=== PATIENT | male | born 1955 | race Caucasian/White ===

== ENCOUNTER 2022-08-19 15:04 | Inpatient (IN) | payer MEDICARE, OTHER ==
[~2022-08-19] VITALS: Ht 180.3 cm; Wt 74.0 kg
[2022-08-19] MEDS ORDERED: LACTULOSE SYRUP 10GM/15ML (ENULOSE) 30ML UDC PO PRN (15:15)
[2022-08-19] MEDS ORDERED: diphenhydrAMINE 25 MG TAB (BENADRYL) PO PRN (15:15)
[2022-08-19] MEDS ORDERED: BISACODYL 10 MG SUPP (DULCOLAX) PR PRN (15:15)
[2022-08-19] MEDS ORDERED: ONDANSETRON 4 MG (ZOFRAN) ORAL DISSOLVE TAB PO PRN (15:15)
[2022-08-19] MEDS ORDERED: guaiFENesin/CODEINE (ROBITUSSIN AC) 10ML UDC PO PRN (15:15)
[2022-08-19] MEDS ORDERED: DOCUSATE SODIUM 100 MG (COLACE) CAP PO PRN (15:15)
[2022-08-19] MEDS ORDERED: LOPERAMIDE 2 MG (IMODIUM) TABLET PO PRN (15:15)
[2022-08-19] MEDS ORDERED: ACETAMINOPHEN 325 MG TABLET PO PRN (15:15)
[2022-08-19] MEDS ORDERED: ALPRAZolam 0.25 MG (XANAX) TAB PO PRN (15:15)
[2022-08-19] MEDS ORDERED: CALCIUM CARBONATE 500 MG (TUMS) TAB.CHEW PO PRN (15:15)
[2022-08-19] MEDS ORDERED: FLEET ENEMA ADULT 1 EA BTL PR PRN (15:15)
[2022-08-19] MEDS ORDERED: PRD10T PO (16:18)
[2022-08-19] MEDS ORDERED: DICL100G13 TP (16:18)
[2022-08-19] MEDS ORDERED: MULT-1136 PO (16:18)
[2022-08-19] MEDS ORDERED: PRAV20TA3 PO (16:18)
[2022-08-19] MEDS ORDERED: LATA7.5D OU (16:18)
[2022-08-19] MEDS ORDERED: LISI10TA25 PO (16:18)
[2022-08-19] MEDS ORDERED: HYDR-3820 PO (16:18)
[2022-08-19] MEDS ORDERED: NALO4SPR NS (16:18)
[2022-08-19 16:49] VITALS: BP 116/83
[2022-08-19] MEDS ORDERED: DICLOFENAC 1% GEL 100 GM (VOLTAREN) TUBE TP PRN (17:15)
--- NOTE | 2022-08-19 17:16 | PM&R Post Admission Assessment ---
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 He lives in [place]. Apparently he sustained a fall 4 weeks ago at home but only mild pain occurred but gradually worsened so he went to ER twice and xray did not show fracture but it worsened so much he went to PCP and xray at his office revealed the fracture so he was sent to ER and he was admitted and underwent repair on 08/17/22 uncomplicated. He is constipated. PLOF independent. 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 Tinnitus, right H93.11 CHG ANES COLONOSCOPY,BIOPSY 2011 HX APPENDECTOMY HX CATARACT REMOVAL 1999 HX COLONOSCOPY 12/01/2018 NM COLSC FLX W/RMVL OF TUMOR POLYP LESION SNARE TQ N/A 12/01/2018 COLONOSCOPY WITH POLYPECTOMY performed by Brenton Mata MD (John) at [facility] NM EGD TRANSORAL CONTROL BLEEDING ANY METHOD N/A 12/01/2018 ENDOSCOPY CONTROL OF BLEEDING performed by Brenton Mata MD (John) at [facility] Past Mipignq-Vvgede-Uviwkj Hx Past Med/Social Hx: Reviewed Nursing Past Med/Soc Hx, Reviewed and Corrections made Patient Social History Marrital Status: Employed/Student: retired Alcohol Use: Occasionally Uses Smoking Status: Never a Smoker Past Medical History Surgeries: Orthopedic Cardiac: High Cholesterol, Hypertension Gastrointestinal: Diverticulosis PM&R Allergy/Meds/Data Review Allergies Coded Allergies: No Known Drug Allergies (Unverified , 08/20/22) Home Medications Scheduled Latanoprost/Pf (Latanoprost 0.005% Eye Drop), 1 DROP OU HS, (Reported) Lisinopril (Lisinopril), 10 MG PO DAILY, (Reported) Multivitamin (Multivitamin), 1 EACH PO DAILY, (Reported) Pravastatin Sodium (Pravastatin Sodium), 20 MG PO HS, (Reported) Prednisone (Prednisone), 10 MG PO DAILY, (Reported) Scheduled PRN Diclofenac Sodium (Diclofenac Sodium), 2 GM TP Q6H PRN for PAIN-BREAKTHROUGH, (Reported) Hydrocodone/Acetaminophen (Hydrocodone-Acetamin 10-325 mg), 1 EACH PO Q4H PRN for PAIN-MODERATE (5-7), (Reported) Naloxone HCl (Narcan), 1 SPR NS UD PRN for OPIATE OD, (Reported) Current Medications Current Medications Reviewed Review of Systems Constitutional: see HPI, malaise, weakness EENTM: no symptoms reported Respiratory: no symptoms reported Gastrointestinal: no symptoms reported Genitourinary: no symptoms reported Musculoskeletal: back pain, joint pain Skin: no symptoms reported Psychiatric/Neurological: No Symptoms Reported All Other Systems Reviewed Negative Unless Noted: Yes Physical Exam Physical Exam Vital Signs Vital Signs - First Documented 08/19/22 16:49 Temp 37.0 Pulse 97 Resp 16 B/P (MAP) 116/83 (94) Pulse Ox 99 O2 Delivery Room Air Capillary Refill : Height, Weight, BMI Height: '" Weight: lbs. oz. kg; 22.51 BMI Method: General Appearance: No Apparent Distress, WD/WN, Thin Eyes: Bilateral Eye Normal Inspection, Bilateral Eye PERRL HEENT: PERRL/EOMI, Normal ENT Inspection, Pharynx Normal Neck: Full Range of Motion, Normal Inspection, Non Tender, Supple, Carotid Bruit Respiratory: Chest Non Tender, Lungs Clear, Normal Breath Sounds, No Accessory Muscle Use, No Respiratory Distress Cardiovascular: Regular Rate, Rhythm, No Edema, No Gallop, No JVD, No Murmur, Normal Peripheral Pulses Gastrointestinal: Normal Bowel Sounds, No Organomegaly, No Pulsatile Mass, Non Tender, Soft Back: Normal Inspection, No CVA Tenderness, No Vertebral Tenderness Extremity: Normal Capillary Refill, Normal Inspection, Normal Range of Motion (except right leg), Non Tender, No Calf Tenderness, No Pedal Edema Neurologic/Psychiatric: Alert, Oriented x3, Normal Mood/Affect, counter pocket trimmer II-XII Norm as Tested, Abnormal Gait, Motor Weakness (right leg) Skin: Normal Color, Warm/Dry Lymphatic: No Adenopathy PM&R Medical Assessment & Plan REHAB/MEDICAL ASSESSMENT AND PLAN: REHAB IMPAIRMENT GROUP: Right hip fx ETIOLOGIC DIAGNOSIS: Right hip fx The comorbidities that impact the patients function and/or functional outcome by: right hip fracture, HTN, thin habitus, hip pain REHAB PLAN: The patient is being admitted to our comprehensive inpatient rehabilitation facility and can tolerate the intensity of service consisting of at least: 180 minutes of therapy a day, 5 out of 7 days a week Rehab treatment will consist of: PT OT will focus on regaining function with use of AD and increase independent ADLs in order to return to independent living The patient/family has a good understanding of our discharge process and will benefit from an interdisciplinary inpatient rehabilitation program. The patient has potential to make improvement and is in need of at least two of the following multidisciplinary therapies including but not limited to physical, occupational, speech, and prosthetics and orthotics. Additionally the patient will need services from respiratory, nutritional services, wound care, psychology, etc. (Customize this to each patient). Given the patients complex condition and risk of further medical complications, rehabilitation services cannot be safely or effectively provided at a lower level of care such as a care home facility. BARRIERS TO DISCHARGE: Right hip pain ESTIMATED LOS: 7 days DISPOSITION: Home RELEVANT CHANGES SINCE PREADMISSION SCREENING: I have compared the patients medical and functional status at the time of the preadmission screening and there are: no changes PROGNOSIS: Good REHABILITATION GOALS: 1. PT OT will focus on regaining function with use of AD and increase independent ADLs in order to return to independent living All the above goals were reviewed with the patient and he/she is in agreement. By signing this document, I acknowledge that I have personally performed a full physical examination on this patient within 24 hours of admission to this inpatient rehabilitation facility and have determined the patient to be able to tolerate the above course of treatment at an intensive level for a reasonable period of time. I will be completing a detailed individualized Plan of Care for this patient by day #4 of the patients stay based upon the Preadmission Screen, the Post-Admission Evaluation, and the therapy evaluations. Admission Dx/Comorbidities: (1) Hip fracture ICD Codes: S72.009A - Fracture of unspecified part of neck of unspecified femur, initial encounter for closed fracture (2) Acoustic neuroma ICD Codes: D33.3 - Benign neoplasm of cranial nerves (3) Hypertension ICD Codes: I10 - Essential (primary) hypertension (4) Hyperlipidemia ICD Codes: E78.5 - Hyperlipidemia, unspecified (5) Glaucoma ICD Codes: H40.9 - Unspecified glaucoma (6) Diverticulosis ICD Codes: K57.90 - Diverticulosis of intestine, part unspecified, without perforation or abscess without bleeding (7) Apraxia ICD Codes: R48.2 - Apraxia (8) Falls ICD Codes: W19.XXXA - Unspecified fall, initial encounter Assessment/Plan Assessment and Plan Assess & Plan/Chief Complaint Assessment: Right hip fracture from mechanical fall s/p repair 08/17/22 Apraxia Acoustic neuroma Falls HTN HLP BMI 22 Post op acute blood loss anemia Plan: Pain control BM regimen Home meds Aggressive rehab AMRIT ROQUE DO Aug 19, 2022 17:16
[2022-08-19] MEDS ORDERED: SENNA W/DOCUSATE (SENOKOT S) TABLET PO NR (17:30)
[2022-08-19] MEDS ORDERED: polyethylene glycoL POWDER 17 GM (MIRALAX) PACK PO NR (17:30)
[2022-08-19 19:37] VITALS: BP 93/66
[2022-08-19 20:40] VITALS: BP 108/71
[2022-08-19] MEDS ORDERED: AtorvaSTATin TABLET 10 MG TABLET PO SCH (21:00)
[2022-08-19] MEDS ORDERED: NON-FORMULARY MEDICATION 1 EA EA (Pravastatin Sodium 20 MG) PO SCH (21:00)
[2022-08-19] MEDS ORDERED: NON-FORMULARY MEDICATION 1 EA EA (Latanoprost/Pf (Latanoprost 0.005% Eye Drop) 1 DROP) OU SCH (21:00)
[2022-08-19] MEDS: LATANOPROST 0.005% (XALATAN) OPHTH SOLN 2.5 ML OU SCH (21:23)
[2022-08-19] MEDS: SENNA W/DOCUSATE (SENOKOT S) TABLET PO SCH (21:25)
[2022-08-19] MEDS: DOCUSATE SODIUM 100 MG (COLACE) CAP PO SCH (21:25)
[2022-08-19] MEDS: MELATONIN 3 MG TABLET PO PRN (21:25)
[2022-08-19] MEDS: polyethylene glycoL POWDER 17 GM (MIRALAX) PACK PO SCH (21:33)
--- NOTE | 2022-08-20 05:13 | PM&R Progress Note ---
Subjective HPI/CC On Admission Date Seen by Provider: Aug 20, 2022 Time Seen by Provider: 11:00 Subjective/Events-last exam 08/20/2022: Doing well No pain currently Moving around well BM+ No falls DC Prednisone since I reviewed [facility] chart and it was for piriformis syndrome and that was before hip fracture was dx Review of Systems General: Fatigue, Malaise Gastrointestinal: Constipation Musculoskeletal: leg pain Objective Exam Vital Signs Vital Signs Date Time Temp Pulse Resp B/P (MAP) Pulse Ox O2 Delivery O2 Flow Rate FiO2 08/20/22 09:00 Room Air 08/20/22 08:41 105 100/64 (76) 08/20/22 07:13 36.8 18 97 Capillary Refill : General Appearance: No Apparent Distress, WD/WN, Thin HEENT: PERRL/EOMI, Normal ENT Inspection, Pharynx Normal Neck: Full Range of Motion, Normal Inspection, Non Tender, Supple, Carotid Bruit Respiratory: Chest Non Tender, Lungs Clear, Normal Breath Sounds, No Accessory Muscle Use, No Respiratory Distress Cardiovascular: Regular Rate, Rhythm, No Edema, No Gallop, No JVD, No Murmur, Normal Peripheral Pulses Gastrointestinal: Normal Bowel Sounds, No Organomegaly, No Pulsatile Mass, Non Tender, Soft Back: Normal Inspection, No CVA Tenderness, No Vertebral Tenderness Extremity: Normal Capillary Refill, Normal Inspection, Normal Range of Motion (except right leg), Non Tender, No Calf Tenderness, No Pedal Edema Neurologic/Psychiatric: Alert, Oriented x3, Normal Mood/Affect, proof sorter II-XII Norm as Tested, Abnormal Gait, Motor Weakness (right leg) Skin: Normal Color, Warm/Dry Lymphatic: No Adenopathy Results/Procedures Lab Laboratory Tests 08/20/22 05:52 Patient resulted labs reviewed. FIM Transfers Therapy Code Descriptions/Definitions Functional [place] Measure: 0=Not Assessed/NA 4=Minimal Assistance 1=Total Assistance 5=Supervision or Setup 2=Maximal Assistance 6=Modified [place] 3=Moderate Assistance 7=Complete IndependenceSCALE: Activities may be completed with or without assistive devices. 7-Jpzrurpryp-epcrujb completes the activity by him/herself with no assistance from a helper. 5-Set-up or Clean-up Assistance-helper sets up or cleans up; patient completes activity. Doland assists only prior to or following the activity. 4-Supervision or Touching Assistance-helper provides verbal cues and/or touching/steadying and/or contact guard assistance as patient completes activity. Assistance may be provided throughout the activity or intermittently. 3-Partial/Moderate Assistance-helper does LESS THAN HALF the effort. Doland lifts, holds or supports trunk or limbs, but provides less than half the effort. 2-Substantial/Maximal Assistance-helper does MORE THAN HALF the effort. Doland lifts or holds trunk or limbs and provides more than half the effort. 9-Slxpvrxap-wgsbpx does ALL the effort. Patient does none of the effort to complete the activity. Or, the assistance of 2 or more helpers is required for the patient to complete the activity. If activity was not attempted, code reason: 7-Patient Refused. 9-Not Applicable-not attempted and the patient did not perform the activity before the current illness, exacerbation or injury. 10-Not Attempted due to Environmental Limitations-(lack of equipment, weather restraints, etc.). 88-Not Attempted due to Medical Conditions or Safety Concerns. Assessment/Plan Assessment and Plan Assess & Plan/Chief Complaint Assessment: Right hip fracture from mechanical fall s/p repair 08/17/22 Apraxia Acoustic neuroma Falls HTN HLP BMI 22 Post op acute blood loss anemia Elevated LFT's Plan: Pain control BM regimen Home meds Aggressive rehab 08/20/2022: Supportive care Hold statin (1) Hip fracture (2) Acoustic neuroma (3) Hypertension (4) Hyperlipidemia (5) Glaucoma (6) Diverticulosis (7) Apraxia (8) Falls AMRIT ROQUE DO Aug 20, 2022 05:13
[2022-08-20 06:07] LABS: BASOPHILS # (AUTO) 0.1 10^3/uL (0.0-0.1); BASOPHILS % (AUTO) 1 % (0-10); EOSINOPHILS # (AUTO) 0.4 10^3/uL (0.0-0.3); EOSINOPHILS % (AUTO) 3 % (0-10); HEMATOCRIT 31 % (40-54); HEMOGLOBIN 10.1 g/dL (13.3-17.7); LYMPHOCYTES # (AUTO) 1.9 10^3/uL (1.0-4.0); LYMPHOCYTES % (AUTO) 15 % (12-44); MEAN CORPUSCULAR HEMOGLOBIN 29 pg (25-34); MEAN CORPUSCULAR HGB CONC 33 g/dL (32-36); MEAN CORPUSCULAR VOLUME 89 fL (80-99); MEAN PLATELET VOLUME 9.9 fL (9.0-12.2); MONOCYTES # (AUTO) 1.1 10^3/uL (0.0-1.0); MONOCYTES % (AUTO) 9 % (0-12); NEUTROPHILS % (AUTO) 72 % (42-75); PLATELET COUNT 476 10^3/uL (130-400); WHITE BLOOD COUNT 12.5 10^3/uL (4.3-11.0)
[2022-08-20 06:09] LABS: ALBUMIN 2.7 GM/DL (3.2-4.5); POTASSIUM 3.9 MMOL/L (3.6-5.0)
[2022-08-20 06:11] LABS: TOTAL PROTEIN 5.5 GM/DL (6.4-8.2)
[2022-08-20 06:13] LABS: BILIRUBIN,TOTAL 0.3 MG/DL (0.1-1.0)
[2022-08-20 06:15] LABS: CREATININE SERUM 0.74 MG/DL (0.60-1.30)
[2022-08-20] MEDS: MULTIVIT W/MINERALS TAB (THERAGRAN M) PO SCH (06:55)
[2022-08-20] MEDS ORDERED: predniSONE 10 MG TAB PO SCH (07:00)
[2022-08-20 07:13] VITALS: BP 113/80
[2022-08-20] MEDS: ENOXAPARIN 40 MG/0.4 ML (LOVENOX) SYR SC SCH (08:33)
[2022-08-20] MEDS: DOCUSATE SODIUM 100 MG (COLACE) CAP PO SCH ×2 (08:33→20:02)
[2022-08-20 08:41] VITALS: BP 100/64
[2022-08-20] MEDS: polyethylene glycoL POWDER 17 GM (MIRALAX) PACK PO SCH ×2 (08:51→20:02)
[2022-08-20] MEDS: SENNA W/DOCUSATE (SENOKOT S) TABLET PO SCH ×2 (08:52→20:02)
[2022-08-20] MEDS: lisINopril 10 MG (PRINIVIL) TABLET PO SCH (08:52)
[2022-08-20] MEDS ORDERED: NON-FORMULARY MEDICATION 1 EA EA (Multivitamin 1 EACH) PO SCH (09:00)
--- NOTE | 2022-08-20 11:37 | Physical Therapy Evaluation ---
PT Evaluation-General Medical Diagnosis Admission Date Aug 19, 2022 at 16:41 Medical Diagnosis: (R) hip hemiarthroplasty Onset Date: Aug 20, 2022 Therapy Diagnosis Therapy Diagnosis: difficulty walking Precautions Precautions/Isolations: Standard Precautions Weight Bear Status Right Lower Extremity: Right Weight Bearing/Tolerated Left Lower Extremity: Left Full Weight Bearing Referral Physician: Alycia Reason for Referral: Evaluation/Treatment Social History Current Living Status: Spouse Entry Into Home: Stairs With Railing PT Steps Into Home: 2 Prior Prior Level of Function SCALE: Activities may be completed with or without assistive devices. 2-Ogergvmlbl-hegktuw completes the activity by him/herself with no assistance from a helper. 5-Set-up or Clean-up Assistance-helper sets up or cleans up; patient completes activity. Wink assists only prior to or following the activity. 4-Supervision or Touching Assistance-helper provides verbal cues and/or touching/steadying and/or contact guard assistance as patient completes activity. Assistance may be provided throughout the activity or intermittently. 3-Partial/Moderate Assistance-helper does LESS THAN HALF the effort. Wink lifts, holds or supports trunk or limbs, but provides less than half the effort. 2-Substantial/Maximal Assistance-helper does MORE THAN HALF the effort. Wink lifts or holds trunk or limbs and provides more than half the effort. 5-Osmougayk-nqtynq does ALL the effort. Patient does none of the effort to complete the activity. Or, the assistance of 2 or more helpers is required for the patient to complete the activity. If activity was not attempted, code reason: 7-Patient Refused. 9-Not Applicable-not attempted and the patient did not perform the activity before the current illness, exacerbation or injury. 10-Not Attempted due to Environmental Limitations-(lack of equipment, weather restraints, etc.). 88-Not Attempted due to Medical Conditions or Safety Concerns. Bed Mobility: 6 Transfers (B,C,W/C): 6 Gait: 6 Stairs: 6 Indoor Mobility (Ambulation): Independent Stairs: Independent Prior Devices Use: Walker PT Evaluation-Current Subjective The patient states that he had 2 x-rays that did not show a fracture and was forced to use a walker. He states that they finally found the fracture and had surgery. Pain Section J - Health Conditions 1. Rarely or not at all 2. Occasionally 3. Frequently 4. Almost constantly 8. Unable to answer Pain Effect on Sleep: 1 Pain Interference with Therapy: 1 Pain Interference w/Day-to-Day: 1 Objective Patient Orientation: Person, Place, Time, Situation ROM/Strength ROM Lower Extremities 10 degrees of (R) hip flexion and abduction. Considerable guarding. Strength Lower Extremities (R) leg not tested, 4/5 grossly on (L) Transfers Roll Left & Right (QC): 5 Sit to Lying (QC): 5 Lying to Sitting/Side of Bed(Q: 5 Sit to Stand (QC): 5 Chair/Sma-he-Dvfyb Xfer(QC): 5 Toilet Transfer (QC): 5 Car Transfer (QC): 88 Gait Does the Patient Walk?: Yes Mode of Locomotion: Walk Anticipated Mode of Locomotion: Walk Walk 10 feet (QC): 5 Walk 50 ft with 2 Turns(QC): 5 Walk 150 ft (QC): 5 Walking 10ft/uneven surface-QC: 88 Distance: 150' Gait Assistive Device: FWW Wheelchair Training Does the Pt Use a Wheelchair?: No Wheel 50 ft with 2 turns (QC): 9 Wheel 150 ft (QC): 9 Stairs #of Steps: 1 1 Step (curb) (QC): 5 4 Steps (QC): 88 12 Steps (QC): 88 Walking Assistive Device: Walker Balance Sitting Static: Normal Sitting Dynamic: Normal Standing Static: Fair Standing Dynamic: Fair Picking up an Object (QC): 88 Assessment/Needs 67 y.o. male s/p (R) hemiarthroplasty. He has difficulty with gait and ADL's secondary to guarding. He should progress well with therapy. Rehab Potential: Good PT Short Term Goals Short Term Goals Time Frame: Aug 27, 2022 Roll Left & Right: 6 Sit to lyin Lying to sitting on side of be: 6 Sit to stand: 6 Chair/hht-yk-zkgxo transfer: 6 Toilet transfer: 6 Car transfer: 6 Walk 10 feet: 6 Walk 50 feet with two turns: 6 Walk 150 feet: 6 Walking 10ft on uneven surface: 6 1 step (curb): 6 4 steps: 5 12 steps: 5 PT Research Specialist Goals Custodial Goals PT Research Specialist Goals Time Frame: Sep 03, 2022 Roll Left to Right (QC): 6 Sit to Lying (QC): 6 Lying-Sitting on Side/Bed(QC): 6 Sit to Stand (QC): 6 Chair/Rwl-pc-Zrmxp Xfer(QC): 6 Toilet/Commode Transfer (QC): 6 Car Transfer (QC): 6 Walk 10 feet (QC): 6 Walk 10ft-Uneven Surface(QC): 6 Walk 50ft with 2 Turns (QC): 6 Walk 150 ft (QC): 6 Does the Pt use WC or Scooter?: No Wheel 50 feet with 2 turns (QC: 9 Wheel 150 feet: 9 1 Step (curb) (QC): 6 4 Steps (QC): 6 12 Steps (QC): 6 Picking up an Object (QC): 88 PT Plan Problem List Problem List: Activity Tolerance, Functional Strength, Safety, Balance, Gait, Transfer, Bed Mobility, ROM Treatment/Plan Treatment Plan: Continue Plan of Care Treatment Plan: Bed Mobility, Concurrent Therapy, Education, Functional Activity Thony, Functional Strength, Group Therapy, Gait, Safety, Therapeutic Exercise, Transfers Treatment Duration: Sep 03, 2022 Frequency: At least 5 of 7 days/Wk (IRF) Estimated Hrs Per Day: 1.5 hours per day Patient and/or Family Agrees t: Yes Time Time In: 700 Time Out: 800 DATE: Aug 20, 2022 Total Billed Treatment Time: 60 Total Billed Treatment 1, 10' evaluation of low comlexity, 50' FA (10' spent evaluation and 50' co- treat with OT) TALON LAMAS PT Aug 20, 2022 11:36
--- NOTE | 2022-08-20 12:25 | Occupational Therapy Eval ---
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 fell at home. 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 Pt. fell and sustained a hip fx. Underwent hip replacement. Reviewed History: Yes Social History Home: Single Level Current Living Status: Spouse (and adult son) Entry Into Home: Stairs With Railing Steps Into Home: 2 ADL-Prior Level of Function SCALE: Activities may be completed with or without assistive devices. 8-Cwjmsnanmv-hylszbp completes the activity by him/herself with no assistance from a helper. 5-Set-up or Clean-up Assistance-helper sets up or cleans up; patient completes activity. [place] assists only prior to or following the activity. 4-Supervision or Touching Assistance-helper provides verbal cues and/or touching/steadying and/or contact guard assistance as patient completes activity. Assistance may be provided throughout the activity or intermittently. 3-Partial/Moderate Assistance-helper does LESS THAN HALF the effort. [place] lifts, holds or supports trunk or limbs, but provides less than half the effort. 2-Substantial/Maximal Assistance-helper does MORE THAN HALF the effort. [place] lifts or holds trunk or limbs and provides more than half the effort. 9-Qwrdqgctl-tkjffc does ALL the effort. Patient does none of the effort to complete the activity. Or, the assistance of 2 or more helpers is required for the patient to complete the activity. If activity was not attempted, code reason: 7-Patient Refused. 9-Not Applicable-not attempted and the patient did not perform the activity before the current illness, exacerbation or injury. 10-Not Attempted due to Environmental Limitations-(lack of equipment, weather restraints, etc.). 88-Not Attempted due to Medical Conditions or Safety Concerns. ADL PLOF Comments Pt. was using a single point cane, but now uses a walker. He states that he had the fx for 4 weeks before it was diagnosed. Pt. was independent with daily skills prior, but had difficulty with balance overall. Self Care: Independent Functional Cognition: Independent DME/Equipment: Bath Chair, Shower DME/Equipment Comments Pt. has cane and walker OT Current Status Subjective Pt. states that he received a pain pill prior to therapy and does not have pain. Appearance Pt. up in chair. Agreeable to work with therapy. Mental Status/Objective Patient Orientation: Person, Place, Time, Situation Current Upper Extremity ROM Pt. has full ROM in bilateral UE. However, he does have a displaced shoulder that is visible with movement. Pt. states that he fell a long time ago, dislocated it, and never got it fixed. Upper Extremity Coordination Pt. does exhibit some ataxic type movements in bilateral UE. Upper Extremity Strength WFL ADL-Treatment Eating (QC): 6 (Pt. ate breakfast while therapy talked with him.) Oral Hygiene (QC): 5 (SBA) Shower/Bathe Self (QC): 3 (Mod assist overall due to hip precautions. Pt. able to bathe UE and andi area in stance, but requires min assist in stance for balance and requires max assist for feet and lower legs.) Upper Body Dressing (QC): 5 Lower Body Dressing (QC): 2 (Max assist overall. Pt. able to doff over hips with min assist, but requires full assist to doff/don pants over feet.) On/Off Footwear (QC): 1 (Dependent with slipper socks.) Toileting Hygiene (QC): 3 (Min assist) Other Treatments Pt. seen this date with PT due to pt's endurance level and need for skilled assist x 2 at times. OT worked on ADL skills, education for hip precautions, and education for hand placement when using walker. PT focused on transfers and standing balance. After shower pt. ambulated to dining area and practiced a step. Requires min/mod for sit-stand, and min/SBA for ambulation. Ambulated back to room and practiced bed transfers with min assist. Pt. up in chair at end of session. Pt. educated on OT goals. Will be appropriate for AE training tomorrow. Education OT Patient Education: Correct positioning, Energy conservation, Modified ADL techniques, Progress toward Goal/Update tx plan, Purpose of tx/functional activities, Reviewed precautions, Rehab process, Transfer techniques Teaching Recipient: Patient Teaching Methods: Demonstration, Discussion Response to Teaching: Verbalize Understanding, Return Demonstration BIMS CAM BIMS Expression of Ideas and Wants: Without Difficulty Understanding Verbal Content: Understands Brief Interview/Mental Status: Yes IRF KULDIP BIMS: IRF KULDIP BIMS Response (Comments) Value Repitition of Three Words Three 3 Recalls Socks Yes, No Cue Required 2 Recalls Blue Yes, No Cue Required 2 Recalls Bed Yes, No Cue Required 2 Year Correct 3 Month Accurate Within 5 Days 2 Day Correct 1 Total 15 Patient Normally Able to Recal: Current Session, Location of own room, That he/she in a hsp Should Staff Asses. Mental St.: No Memory/Recall Ability: Current Season, Location of Own Room, That He/She in [facility] Mental Status Change/Baseline: 0 Inattention: 0 Disorganized thinkin Altered level of consciousness: 0 OT Short Term Goals Short Term Goals Time Frame: Aug 27, 2022 Eatin Oral hygiene: 6 Toileting hygiene: 4 Shower/bathe self: 4 Upper body dressin Lower body dressin (with AE) Putting on/taking off footwear: 4 (with AE) OT Fdc Goals Fdc Goals Time Frame: Sep 10, 2022 Acute change in mental status: 0 Inattention: 0 Disorganized thinkin Altered level of consciousness: 0 Eating (QC): 6 Oral Hygiene (QC): 6 Toileting Hygiene (QC): 6 Shower/Bathe Self (QC): 5 Upper Body Dressing (QC): 6 Lower Body Dressing (QC): 6 On/Off Footwear (QC): 6 Additional Goals: 1-Demonstrate ADL Tasks, 2-Verbalize Understanding, 3- ImproveStrength/Thony 1=Demonstrate adherence to instructed precautions during ADL tasks. 2=Patient will verbalize/demonstrate understanding of assistive devices/modifications for ADL. 3=Patient will improve strength/tolerance for activity to enable patient to perform ADL's. OT Education/Plan Problem List/Assessment Assessment: Decreased Activ Tolerance, Decreased UE Strength, Dependent Transfers, Impaired Funct Balance, Impaired I ADL's, Impaired Self-Care Skills Discharge Recommendations Plan/Recommendations: Continue POC Therapy Discharge Recommendati: Post Acute OT Equpiment Recommendations-D/C: Toilet Riser with Rails, Hip Kit Target Placement Home with family Treatment Plan/Plan of Care Treatment,Training & Education: Yes Patient would benefit from OT for education, treatment and training to promote independence in ADL's, mobility, safety and/or upper extremity function for ADL's. Plan of Care: ADL Retraining, Functional Mobility, UE Funct Exercise/Act Treatment Duration: Sep 10, 2022 Frequency: At least 5 of 7 days/Wk (IRF) Estimated Hrs Per Day: 1.5 hours per day Agreement: Yes Rehab Potential: Good Time Start Time: 06:50 Stop Time: 08:00 DATE: Aug 20, 2022 Total Time Billed (hr/min): 60 Billed Treatment Time [id number] OT eval x 10minutes [id number] PT eval x 10 minutes [id number] ADL x 50minutes. Co-treat with PT. Please see above note for designated roles. LISA STONER OT Aug 20, 2022 12:25
--- NOTE | 2022-08-20 12:27 | Therapy Group Daily Note ---
Therapy Daily Group Note Patient Education Topic Other List Below (Nutrition/food safety) Exercises Fine Motor, UE Exercise Session Ratio (pt:therapist): 2:7 Goal of Session: UE/LE Strengthing, Other (list) (nutrution/food safety) Goal Met for this Session: Yes Pt Benefit of Group: Contributions to Others, F/U Use of Strategies @Home, Increased Functional Safety, Increased Functional Strength, Improved Cognition, Recognition of Peers, Socialization Other/Notes Pt ambulated using FWW with CGA to [facility] for OT/PT group. Group consisted of introductions (name,place living), fine motor coordination tasks with B UE strengthening against gravity, safe transfers to/from table, educational topics on nutrition and food safety. Pt introduced self appropriately and actively listened to peers. Pt verbalized own experiences and strategies for educational topics. Tolerated all activities well. After session, pt lying in bed with call light/phone in reach. All needs met in room. Start Time: 11:00 Stop Time: 12:15 Total Billed Treatment Time: 75 Total Billed Treatment 1-GRP EARL WOLFF Aug 20, 2022 12:27
[2022-08-20 19:28] VITALS: BP 105/61
[2022-08-20] MEDS: MELATONIN 3 MG TABLET PO PRN (19:58)
[2022-08-20] MEDS: LATANOPROST 0.005% (XALATAN) OPHTH SOLN 2.5 ML OU SCH (19:59)
[2022-08-21] MEDS: MULTIVIT W/MINERALS TAB (THERAGRAN M) PO SCH (05:34)
--- NOTE | 2022-08-21 06:06 | Individualized Plan of Care ---
Individualized Plan of Care Rehab Nursing IPOC Order Admission Date Aug 19, 2022 at 16:41 Current Orders Orders Admission Order(Inpt,Obs,Sdc) (08/19/22 15:13) Vital Signs: Per Unit Policy ( 08,16,00 (08/19/22 15:13) Kaleb Aaron (08/19/22 15:13) Sequential Compression Device (08/19/22 15:13) Can Maker-Inpt Rehab Con (08/19/22 15:13) Rehab Nursing Orders-Ipoc (08/19/22 15:13) Physical Therapy Rehab Orders (08/19/22 15:13) Occupational Therapy Rehab Ord (08/19/22 15:13) Speech Therapy Rehab Orders (08/19/22 15:13) Cbc With Automated Diff (08/20/22 06:00) Comprehensive Metabolic Panel (08/20/22 06:00) Precautions (Aru) (08/19/22 15:13) Weekly Weight WEEK (08/19/22 15:13) Rehab-Intensity Of Therapy (08/19/22 15:13) Initiate Admission Nursing Pro .admission (08/19/22 15:13) Alprazolam Tablet (Xanax Tablet) (08/19/22 15:15) Calcium Carbonate Chew Tablet (Antacid C (08/19/22 15:15) Diphenhydramine Tablet (Benadryl Tablet) (08/19/22 15:15) Docusate Sodium Capsule (Colace Capsule) (08/19/22 21:00) Docusate Sodium Capsule (Colace Capsule) (08/19/22 15:15) Bisacodyl Suppository (Dulcolax Supposit (08/19/22 15:15) Lactulose Oral Solution (Enulose Oral So (08/19/22 15:15) Na Phos/Na Biphos Enema (Fleet Enema Niall (08/19/22 15:15) Guaifenesin/Codeine Syrup (Robitussin Ac (08/19/22 15:15) Loperamide Tablet (Imodium Tablet) (08/19/22 15:15) Melatonin Tablet (Melatonin Tablet) (08/19/22 15:15) Polyethylene Glycol Powder Pkt (Miralax (08/19/22 21:00) Ondansetron Oral Dissolve Tab (Zofran (08/19/22 15:15) Senna S Tablet (Senokot S Tablet) (08/19/22 21:00) Acetaminophen Tablet/Caplet (Tylenol T (08/19/22 15:15) Code/Resuscitation (08/19/22 15:13) Transfer - Bed/Room/Location (08/19/22 16:41) General/Regular (08/19/22 Dinner) Diclofenac 1% Gel (Voltaren 1% Gel) (08/19/22 17:15) Hydrocodone/Apap 10/325 Tablet (Lortab 1 (08/19/22 17:15) Lisinopril Tablet (Zestril Tablet) (08/20/22 09:00) Prednisone Tablet (Deltasone Tablet) (08/20/22 07:00) (Nf) Latanoprost/Pf (Latanoprost 0.005% (08/19/22 21:00) (Nf) Multivitamin (08/20/22 09:00) (Nf) Pravastatin Sodium (08/19/22 21:00) Polyethylene Glycol Powder Pkt (Miralax (08/19/22 17:30) Senna S Tablet (Senokot S Tablet) (08/19/22 17:30) Oxycodone Immediate Rel Tablet (Oxyir Ta (08/19/22 17:15) Therapeutic Multivitamin Tab (Vitamins, (08/20/22 07:00) Atorvastatin Tablet (Lipitor Tablet) (08/19/22 21:00) Latanoprost 0.005% Ophth Soln (Xalatan 0 (08/19/22 21:00) Enoxaparin Injection (Lovenox Injection) (08/20/22 09:00) Patient Visit (08/20/22 ) Pt Eval Low Complexity (08/20/22 ) Functional Activities, Ea 15 (08/20/22 ) Patient Visit (08/20/22 ) Iron Test (Fe) (08/20/22 16:57) Vitamin B 12 (08/20/22 16:57) Patient Visit (08/21/22 ) Gait Training, Ea 15 Min (08/21/22 ) Exercise Therap, Ea 15 Min (08/21/22 ) Functional Activities, Ea 15 (08/21/22 ) Patient Visit (08/21/22 ) Speech Sound Lang Comp (08/21/22 ) Treat. Speech/Lang/Voice (08/21/22 ) Rehab Nursing Orders: Ongoing Assess. of Cognitive Status, Ongoing Assess. of Function Status, Bladder Management, Bladder Scan, Bladder Training, Bowel Management, Bowel Training, Disease Management & Educaiton, DVT Prophylaxis, Fall Prevention, Fluid/Electrolyte/Nutrition Mgmt, Infection Prevention, Medication Management & Education, Management of Risks & Complications, Management of Skin Intergrity, Nutrition Management, Pain Management, P atient/Family Support, Safety Management, Wound Management Intensity of Therapy to be met Patient to be seen: Min.3h per day/5 of 7d PT IPOC Problem List: Activity Tolerance, Functional Strength, Safety, Balance, Gait, Transfer, Bed Mobility, ROM Treatment Plan: Continue Plan of Care Bed Mobility, Concurrent Therapy, Education, Functional Activity Thony, Functional Strength, Group Therapy, Gait, Safety, Therapeutic Exercise, Transfers Treatment Duration: Sep 03, 2022 Frequency: At least 5 of 7 days/Wk (IRF) Estimated Hrs Per Day: 1.5 hours per day OT IPOC Problems: Decreased Activ Tolerance, Decreased UE Strength, Dependent Transfers, Impaired Funct Balance, Impaired I ADL's, Impaired Self-Care Skills OT Treatment, Training and Edu: Yes Plan of Care: ADL Retraining, Functional Mobility, UE Funct Exercise/Act Treatment Duration: Sep 10, 2022 Frequency: At least 5 of 7 days/Wk (IRF) Estimated Hrs Per Day: 1.[address] IPOC Speech Therapy Treatment Plan: Discontinue ST Treatment Duration: Aug 21, 2022 Frequency: Modified Program (IRF) Estimated Hrs Per Day: Other Can Maker/Case Mgmt Can Maker/Case Managemen: Discharge Planning Dietitian/Director Clinical Data Dietitian/Director Clinical Data to monitor nutritional status and make changes and/or recommendations as needed and work with speech pathology on dietary upgrades as the occur. Physician IPOC Medical Issues being managed closely and that require the 24 hour availability of a physician: Recent hip fracture with delayed repair and h/o apraxia with acoustic neuroma will require monitoring patient closely for falls and monitoring LFT's along with bowel status Medical Issues: Bowel/Bladder Function, DVT Prophylaxis, Falls Precautions, Fluid/Electrolyte/Nutrition Balance, Infection Protection, Pain Management, Weight Bearing Precautions, Wound Care Brief Synthesis of Preadmission Screen, Post-Admission Evaluation, and Therapy Evaluations: PT OT will focus on regaining function with use of AD and prevent falls and increase stamina in order to return back to independent living Medical Prognosis: Good Anticipated Length of Stay: 7 days AMRIT ROQUE DO Aug 21, 2022 06:06
--- NOTE | 2022-08-21 06:06 | PM&R Progress Note ---
Subjective HPI/CC On Admission Date Seen by Provider: Aug 21, 2022 Time Seen by Provider: 11:30 Subjective/Events-last exam 08/21/2022: Doing very well Pain controlled BM+ No nausea Working with PT OT 08/20/2022: Doing well No pain currently Moving around well BM+ No falls DC Prednisone since I reviewed [facility] chart and it was for piriformis syndrome and that was before hip fracture was dx Review of Systems General: Fatigue, Malaise Musculoskeletal: leg pain Objective Exam Vital Signs Vital Signs Date Time Temp Pulse Resp B/P (MAP) Pulse Ox O2 Delivery O2 Flow Rate FiO2 08/21/22 09:10 Room Air 08/21/22 07:52 36.5 115 20 113/74 (87) 94 Capillary Refill : General Appearance: No Apparent Distress, WD/WN, Thin HEENT: PERRL/EOMI, Normal ENT Inspection, Pharynx Normal Neck: Full Range of Motion, Normal Inspection, Non Tender, Supple, Carotid Bruit Respiratory: Chest Non Tender, Lungs Clear, Normal Breath Sounds, No Accessory Muscle Use, No Respiratory Distress Cardiovascular: Regular Rate, Rhythm, No Edema, No Gallop, No JVD, No Murmur, Normal Peripheral Pulses Gastrointestinal: Normal Bowel Sounds, No Organomegaly, No Pulsatile Mass, Non Tender, Soft Back: Normal Inspection, No CVA Tenderness, No Vertebral Tenderness Extremity: Normal Capillary Refill, Normal Inspection, Normal Range of Motion (except right leg), Non Tender, No Calf Tenderness, No Pedal Edema Neurologic/Psychiatric: Alert, Oriented x3, Normal Mood/Affect, pairer substandard II-XII Norm as Tested, Abnormal Gait, Motor Weakness (right leg) Skin: Normal Color, Warm/Dry Lymphatic: No Adenopathy Results/Procedures Lab Patient resulted labs reviewed. FIM Transfers Therapy Code Descriptions/Definitions Functional [place] Measure: 0=Not Assessed/NA 4=Minimal Assistance 1=Total Assistance 5=Supervision or Setup 2=Maximal Assistance 6=Modified [place] 3=Moderate Assistance 7=Complete IndependenceSCALE: Activities may be completed with or without assistive devices. 7-Yzfkhubjqa-mxynejl completes the activity by him/herself with no assistance from a helper. 5-Set-up or Clean-up Assistance-helper sets up or cleans up; patient completes activity. [place] assists only prior to or following the activity. 4-Supervision or Touching Assistance-helper provides verbal cues and/or touching/steadying and/or contact guard assistance as patient completes activity. Assistance may be provided throughout the activity or intermittently. 3-Partial/Moderate Assistance-helper does LESS THAN HALF the effort. [place] lifts, holds or supports trunk or limbs, but provides less than half the effort. 2-Substantial/Maximal Assistance-helper does MORE THAN HALF the effort. [place] lifts or holds trunk or limbs and provides more than half the effort. 7-Aanxqgmpr-hwoezk does ALL the effort. Patient does none of the effort to complete the activity. Or, the assistance of 2 or more helpers is required for the patient to complete the activity. If activity was not attempted, code reason: 7-Patient Refused. 9-Not Applicable-not attempted and the patient did not perform the activity before the current illness, exacerbation or injury. 10-Not Attempted due to Environmental Limitations-(lack of equipment, weather restraints, etc.). 88-Not Attempted due to Medical Conditions or Safety Concerns. Roll Left to Right (QC): 5 Sit to Lying (QC): 5 Sit to Stand (QC): 5 Chair/Hnh-vn-Salii Xfer(QC): 5 Car Transfer (QC): 88 Gait Training Does the Patient Walk?: Yes Walk 10 feet (QC): 5 Walk 50 ft with 2 Turns(QC): 5 Walk 150 ft (QC): 5 Walking 10ft/uneven surface-QC: 88 Gait Assistive Device: FWW Wheelchair Training Does the Pt Use a Wheelchair?: No Wheel 50 ft with 2 turns (QC): 9 Wheel 150 ft (QC): 9 Stair Training #of Steps: 1 1 Step (curb) (QC): 5 4 Steps (QC): 88 12 Steps (QC): 88 Balance Picking up an Object (QC): 88 ADL-Treatment Eating (QC): 6 (Pt. ate breakfast while therapy talked with him.) Oral Hygiene (QC): 5 (SBA) Shower/Bathe Self (QC): 3 (Mod assist overall due to hip precautions. Pt. able to bathe UE and andi area in stance, but requires min assist in stance for balance and requires max assist for feet and lower legs.) Upper Body Dressing (QC): 5 Lower Body Dressing (QC): 2 (Max assist overall. Pt. able to doff over hips with min assist, but requires full assist to doff/don pants over feet.) On/Off Footwear (QC): 1 (Dependent with slipper socks.) Toileting Hygiene (QC): 3 (Min assist) Assessment/Plan Assessment and Plan Assess & Plan/Chief Complaint Assessment: Right hip fracture from mechanical fall s/p repair 08/17/22 Apraxia Acoustic neuroma Falls HTN HLP BMI 22 Post op acute blood loss anemia Elevated LFT's Plan: Pain control BM regimen Home meds Aggressive rehab 08/20/2022: Supportive care Hold statin 08/21/2022: Improved status (1) Hip fracture (2) Acoustic neuroma (3) Hypertension (4) Hyperlipidemia (5) Glaucoma (6) Diverticulosis (7) Apraxia (8) Falls AMRIT ROQUE DO Aug 21, 2022 06:06
[2022-08-21 07:52] VITALS: BP 113/74
[2022-08-21] MEDS: ENOXAPARIN 40 MG/0.4 ML (LOVENOX) SYR SC SCH (08:54)
[2022-08-21] MEDS: lisINopril 10 MG (PRINIVIL) TABLET PO SCH (08:54)
--- NOTE | 2022-08-21 09:47 | Physical Therapy Daily Note ---
PT Daily Note-Current Subjective Patient sitting in recliner upon PT arrival, agreeable to treatment. Patient rates pain at rest at 0/10. Pain Section J - Health Conditions 1. Rarely or not at all 2. Occasionally 3. Frequently 4. Almost constantly 8. Unable to answer Pain Effect on Sleep: 1 Pain Interference with Therapy: 1 Pain Interference w/Day-to-Day: 1 Mental Status Patient Orientation: Person, Place, Time, Situation Transfers SCALE: Activities may be completed with or without assistive devices. 1-Bnpntsapjt-dpujmbk completes the activity by him/herself with no assistance from a helper. 5-Set-up or Clean-up Assistance-helper sets up or cleans up; patient completes activity. [place] assists only prior to or following the activity. 4-Supervision or Touching Assistance-helper provides verbal cues and/or touching/steadying and/or contact guard assistance as patient completes activity. Assistance may be provided throughout the activity or intermittently. 3-Partial/Moderate Assistance-helper does LESS THAN HALF the effort. [place] lifts, holds or supports trunk or limbs, but provides less than half the effort. 2-Substantial/Maximal Assistance-helper does MORE THAN HALF the effort. [place] l ifts or holds trunk or limbs and provides more than half the effort. 8-Odjeedseb-engojh does ALL the effort. Patient does none of the effort to complete the activity. Or, the assistance of 2 or more helpers is required for the patient to complete the activity. If activity was not attempted, code reason: 7-Patient Refused. 9-Not Applicable-not attempted and the patient did not perform the activity before the current illness, exacerbation or injury. 10-Not Attempted due to Environmental Limitations-(lack of equipment, weather restraints, etc.). 88-Not Attempted due to Medical Conditions or Safety Concerns. Sit to Stand (QC): 3 Chair/Mho-zi-Dgxue Xfer(QC): 4 Weight Bearing Right Lower Extremity: Right Weight Bearing/Tolerated Left Lower Extremity: Left Full Weight Bearing Gait Training Does the Patient Walk?: Yes Distance: 250', 120' Walk 10 feet (QC): 4 Walk 50 ft with 2 Turns(QC): 4 Walk 150 ft (QC): 4 Gait Persons Needed: 1 Gait Assistive Device: FWW Stair Training #of Steps: 12 1 Step (curb) (QC): 4 4 Steps (QC): 4 12 Steps (QC): 4 Stairs: Pattern: Step to Exercises Supine Ex: Ankle pumps, Quad Set, Glut sets Supine Reps: 20 Seated Therapy Exercises: Long arc quads, Hip abd/add Seated Reps: 20 NuStep Minutes: 10 NuStep Workload: 1 Assessment Current Status: Good Progress Patient tolerated treatment fair. Patient in recliner upon PT arrival, with pillow behind his back and butt scooted forwards, in an attempt to avoid any hip flexion. Patient was educated about the importance of moving the hip to promote healing and avoid disuse atrophy/ROM loss, he was able to give hip precautions 3/3 and he was advised to avoid sitting in the previously mentioned position due to the possibility of causing additional pathology. Patient performed LE therapeutic exercise as listed above. He ambulates 250 feet with FWW, with CGA and verbal cues for safety, progression, balance and conservation of energy. Patient performs LE therapeutic exercise as listed above, including Nu Step with UEs. Patient ascends/descends 4 steps x 3 reps with bilateral handrails with CGA. Patient ambulates 120 feet with FWW with CGA back to his room. He requires additional assistance with sit to stand this date due to difficulty standing from the chair and loss of balance retropulsively and to the left. Patient in chair post treatment with all needs met, nursing notified, call light in reach. PT Short Term Goals Short Term Goals Time Frame: Aug 27, 2022 Roll Left & Right: 6 Sit to lyin Lying to sitting on side of be: 6 Sit to stand: 6 Chair/prr-uu-jrrxh transfer: 6 Toilet transfer: 6 Car transfer: 6 Walk 10 feet: 6 Walk 50 feet with two turns: 6 Walk 150 feet: 6 Walking 10ft on uneven surface: 6 1 step (curb): 6 4 steps: 5 12 steps: 5 PT Snf Goals Supervisor Pig Machine Goals PT Supervisor Pig Machine Goals Time Frame: Sep 03, 2022 Roll Left & Right (QC): 6 Sit to Lying (QC): 6 Lying-Sitting on Side/Bed(QC): 6 Sit to Stand (QC): 6 Chair/Fhk-ek-Dbqkt Xfer(QC): 6 Toilet Transfer (QC): 6 Car Transfer (QC): 6 Does the Patient Walk: Yes Walk 10 feet (QC): 6 Walk 50ft with 2 Turns (QC): 6 Walk 150 ft (QC): 6 Walking 10ft on Uneven Surface: 6 1 Step (curb) (QC): 6 4 Steps (QC): 6 12 Steps (QC): 6 Picking up an Object (QC): 88 Does the Pt use WC or Scooter?: No Wheel 50 feet with 2 turns (QC: 9 Wheel 150 feet: 9 PT Plan Treatment/Plan Treatment Plan: Continue Plan of Care Treatment Plan: Bed Mobility, Concurrent Therapy, Education, Functional Activity Thony, Functional Strength, Group Therapy, Gait, Safety, Therapeutic Exercise, Transfers Treatment Duration: Sep 03, 2022 Frequency: At least 5 of 7 days/Wk (IRF) Estimated Hrs Per Day: 1.5 hours per day Patient and/or Family Agrees t: Yes Safety Risks/Education Patient Education: Gait Training, Transfer Techniques, Steps Teaching Recipient: Patient Teaching Methods: Demonstration, Discussion Response to Teaching: Verbalize Understanding, Return Demonstration Time Time In: 825 Time Out: 945 DATE: Aug 21, 2022 Total Billed Treatment Time: 80 Total Billed Treatment Visit, GT (25), Ex (25) FA (30) ELEAZAR OVIEDO PT Aug 21, 2022 09:47
[2022-08-21] MEDS: polyethylene glycoL POWDER 17 GM (MIRALAX) PACK PO SCH ×2 (09:53→20:54)
[2022-08-21] MEDS: SENNA W/DOCUSATE (SENOKOT S) TABLET PO SCH ×2 (09:54→21:04)
[2022-08-21] MEDS: DOCUSATE SODIUM 100 MG (COLACE) CAP PO SCH ×2 (09:54→21:03)
--- NOTE | 2022-08-21 10:04 | Occupational Ther Daily Note ---
OT Current Status-Daily Note Subjective OT arrived w/ Pt up in chair eating Pain Numeric Pain Scale: 0-No Pain ADL-Treatment Full shower w/ moderate assistance w/ 25 % VC for hip kit education Therapy Code Descriptions/Definitions Functional [place] Measure: 0=Not Assessed/NA 4=Minimal Assistance 1=Total Assistance 5=Supervision or Setup 2=Maximal Assistance 6=Modified [place] 3=Moderate Assistance 7=Complete IndependenceSCALE: Activities may be completed with or without assistive devices. 6-Gpnizttgwc-naytnow completes the activity by him/herself with no assistance from a helper. 5-Set-up or Clean-up Assistance-helper sets up or cleans up; patient completes activity. [place] assists only prior to or following the activity. 4-Supervision or Touching Assistance-helper provides verbal cues and/or touching/steadying and/or contact guard assistance as patient completes activity. Assistance may be provided throughout the activity or intermittently. 3-Partial/Moderate Assistance-helper does LESS THAN HALF the effort. [place] lifts, holds or supports trunk or limbs, but provides less than half the effort. 2-Substantial/Maximal Assistance-helper does MORE THAN HALF the effort. [place] lifts or holds trunk or limbs and provides more than half the effort. 9-Lorzwibrr-cwkchz does ALL the effort. Patient does none of the effort to complete the activity. Or, the assistance of 2 or more helpers is required for the patient to complete the activity. If activity was not attempted, code reason: 7-Patient Refused. 9-Not Applicable-not attempted and the patient did not perform the activity before the current illness, exacerbation or injury. 10-Not Attempted due to Environmental Limitations-(lack of equipment, weather restraints, etc.). 88-Not Attempted due to Medical Conditions or Safety Concerns. Eating (QC): 6 Oral Hygiene (QC): 4 (standing w/ FWW GCA) Bathing Location: L Arm, R Arm, L Upper Leg, Chest, Abdomen, Perineal Area Shower/Bathe Self (QC): 3 Upper Body Dressing (QC): 5 Lower Body Dressing (QC): 3 On/Off Footwear: 3 Education OT Patient Education: Correct positioning, Energy conservation, Safety issues, Transfer techniques, Use of adapted equipment Teaching Recipient: Patient Teaching Methods: Demonstration, Discussion Response to Teaching: Verbalize Understanding, Return Demonstration, Reinforcement Needed OT Short Term Goals Short Term Goals Time Frame: Aug 27, 2022 Eatin Oral hygiene: 6 Toileting hygiene: 4 Shower/bathe self: 4 Upper body dressin Lower body dressin (with AE) Putting on/taking off footwear: 4 (with AE) OT Chart Computer Goals Nursing Home Goals Time Frame: Sep 10, 2022 Acute change in mental status: 0 Inattention: 0 Disorganized thinkin Altered level of consciousness: 0 Eating (QC): 6 Oral Hygiene (QC): 6 Toileting Hygiene (QC): 6 Shower/Bathe Self (QC): 5 Upper Body Dressing (QC): 6 Lower Body Dressing (QC): 6 On/Off Footwear (QC): 6 Additional Goals: 1-Demonstrate ADL Tasks, 2-Verbalize Understanding, 3- ImproveStrength/Thony 1=Demonstrate adherence to instructed precautions during ADL tasks. 2=Patient will verbalize/demonstrate understanding of assistive devices/modifications for ADL. 3=Patient will improve strength/tolerance for activity to enable patient to perform ADL's. OT Education/Plan Problem List/Assessment Assessment: Edema, Impaired Coordination, Impaired Funct Balance, Impaired Self-Care Skills Discharge Recommendations Plan/Recommendations: Continue POC Treatment Plan/Plan of Care Patient would benefit from OT for education, treatment and training to promote independence in ADL's, mobility, safety and/or upper extremity function for ADL's. Plan of Care: ADL Retraining, Functional Mobility, UE Funct Exercise/Act Treatment Duration: Sep 10, 2022 Frequency: At least 5 of 7 days/Wk (IRF) Estimated Hrs Per Day: 1.5 hours per day Agreement: Yes Rehab Potential: Good Time Start Time: 07:07 Stop Time: 07:18 DATE: Aug 21, 2022 Total Time Billed (hr/min): 78 Billed Treatment Time 1 visit ADL 5 GAIL MONAHAN OT Aug 21, 2022 10:04
--- NOTE | 2022-08-21 11:27 | ST Cognitive Linguistic Eval ---
Speech Evaluation-General Medical Diagnosis (R) hip hemiarthroplasty Onset Date: Aug 20, 2022 Therapy Diagnosis Therapy Diagnosis: Intact (Baseline) Cognition, Mild Dysarthria (Baseline) Precautions Precautions: Fall Precautions/Isolations: Fall Prevention, Standard Precautions Referral Referring Physician: Dr. Kesha Tong Reason for Referral: Evaluation/Treatment Medical History Pertinent Medical History: HTN Current History The patient is a 67 year-old male with a past medical history of HTN, colon CA, and vestibular schwannoma, who was admitted to [facility] following a right hip replacement. Reviewed History: Yes Social History Current Living Status: Spouse (and adult son) Speech PLF-Current Status Prior Level of Function The patient denied recent changes or concerns to his speech, language, or cognition. The patient stated, "Sometimes I feel my speech sounds a little slurred. My just thinks I had too much to drink." The patient associated the onset of the "slurred" speech to the timing of his vestibula schwannoma diagnosis. Subjective The patient was seated upright in his recliner, awake and alert, upon entrance to his room by the clinician. The patient greeted the clinician appropriately and was agreeable to participation in the cognitive linguistic assessment. Language Eval: Auditory Comprehends Simple Yes/No Ques: Functional Indent/Objects Multiple [place]: Functional Follows 1-Step Commands: Functional Follows General Conversations: Functional Language Eval: Verbal Language Completes Spontaneous Greeting: Functional Produces Auto, Serial Info: Functional Word Finding: Functional Requests Basic Needs: Functional States Basic Personal Info: Functional Language Evaluation: Reading Follows Simple Written Direct: Functional The patient politely deferred writing tasks stating his writing is often not legible due to "the shaking." Cognitive Patient Orientation The patient was independently oriented to self, location, month, day of the week, and year. Objective Cognitive Domain Attention: WNL Memory: WNL Problem Solving: Functional Composite Severity Rating: WNL Objective Formal/Standardized Tests [facility] Mental Status Exam (UMS) Results The patient demonstrated a result of +24/26 correlating to a result within normal cognitive and linguistic levels. The patient does politely defer clock drawing tasks due to difficulty with his writing (documented above), therefore, the final score was taken from 26 rather than 30 points. Oral Motor/Speech Production The patient displays mild dysarthria, most consistent with an ataxic form. The patient's dysarthria is suspected secondary to the vestibular schwannoma which the patient stated "pushes on the cerebellum." The patient reports the dysarthria as baseline and remains 100% intelligible in known and unknown contexts. 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 Speech-Plan Treatment Plan Speech Therapy Treatment Plan: Discontinue ST Treatment Duration: Aug 21, 2022 Frequency: 1 time per week Estimated Hrs Per Day: .5 hour per day Rehab Potential: Good Safety Risks/Education Teaching Recipient: Patient Teaching Methods: Discussion Response to Teaching: Verbalize Understanding Education Topics Provided: Results, Recommendations, Plan of Care Time Speech Therapy Time In: 09:55 Speech Therapy Time Out: 10:25 DATE: Aug 21, 2022 Total Billed Time: 30 Billed Treatment Time 1, LIBRADO QIU [facility]IZ[facility] ST Aug 21, 2022 11:26
[2022-08-21 19:55] VITALS: BP 107/73
[2022-08-21] MEDS: LATANOPROST 0.005% (XALATAN) OPHTH SOLN 2.5 ML OU SCH (21:03)
[2022-08-21] MEDS: MELATONIN 3 MG TABLET PO PRN (21:04)
--- NOTE | 2022-08-22 05:57 | PM&R Progress Note ---
Subjective HPI/CC On Admission Date Seen by Provider: Aug 22, 2022 Time Seen by Provider: 12:00 Subjective/Events-last exam 08/22/2022: Patient doing much better Wants to go home soon Participating in therapy Blood Pressure was fairly low so holding lisinopril Patient is lost 40 pounds last year 08/21/2022: Doing very well Pain controlled BM+ No nausea Working with PT OT 08/20/2022: Doing well No pain currently Moving around well BM+ No falls DC Prednisone since I reviewed [facility] chart and it was for piriformis syndrome and that was before hip fracture was dx Review of Systems General: Fatigue, Malaise Objective Exam Vital Signs Vital Signs Date Time Temp Pulse Resp B/P (MAP) Pulse Ox O2 Delivery O2 Flow Rate FiO2 08/22/22 12:11 106 102/68 (79) 08/22/22 09:59 Room Air 08/22/22 07:30 37.1 18 96 Capillary Refill : General Appearance: No Apparent Distress, WD/WN, Thin HEENT: PERRL/EOMI, Normal ENT Inspection, Pharynx Normal Neck: Full Range of Motion, Normal Inspection, Non Tender, Supple, Carotid Bruit Respiratory: Chest Non Tender, Lungs Clear, Normal Breath Sounds, No Accessory Muscle Use, No Respiratory Distress Cardiovascular: Regular Rate, Rhythm, No Edema, No Gallop, No JVD, No Murmur, Normal Peripheral Pulses Gastrointestinal: Normal Bowel Sounds, No Organomegaly, No Pulsatile Mass, Non Tender, Soft Back: Normal Inspection, No CVA Tenderness, No Vertebral Tenderness Extremity: Normal Capillary Refill, Normal Inspection, Normal Range of Motion (except right leg), Non Tender, No Calf Tenderness, No Pedal Edema Neurologic/Psychiatric: Alert, Oriented x3, Normal Mood/Affect, client leader II-XII Norm as Tested, Abnormal Gait, Motor Weakness (right leg) Skin: Normal Color, Warm/Dry Lymphatic: No Adenopathy Results/Procedures Lab Patient resulted labs reviewed. FIM Transfers Therapy Code Descriptions/Definitions Functional [place] Measure: 0=Not Assessed/NA 4=Minimal Assistance 1=Total Assistance 5=Supervision or Setup 2=Maximal Assistance 6=Modified [place] 3=Moderate Assistance 7=Complete IndependenceSCALE: Activities may be completed with or without assistive devices. 8-Hngvvzchtl-kqjniqy completes the activity by him/herself with no assistance from a helper. 5-Set-up or Clean-up Assistance-helper sets up or cleans up; patient completes activity. [place] assists only prior to or following the activity. 4-Supervision or Touching Assistance-helper provides verbal cues and/or touching/steadying and/or contact guard assistance as patient completes activity. Assistance may be provided throughout the activity or intermittently. 3-Partial/Moderate Assistance-helper does LESS THAN HALF the effort. [place] lifts, holds or supports trunk or limbs, but provides less than half the effort. 2-Substantial/Maximal Assistance-helper does MORE THAN HALF the effort. [place] lifts or holds trunk or limbs and provides more than half the effort. 1-Wdwljhrql-jlvxwi does ALL the effort. Patient does none of the effort to complete the activity. Or, the assistance of 2 or more helpers is required for the patient to complete the activity. If activity was not attempted, code reason: 7-Patient Refused. 9-Not Applicable-not attempted and the patient did not perform the activity b efore the current illness, exacerbation or injury. 10-Not Attempted due to Environmental Limitations-(lack of equipment, weather restraints, etc.). 88-Not Attempted due to Medical Conditions or Safety Concerns. Roll Left to Right (QC): 5 Sit to Lying (QC): 5 Sit to Stand (QC): 3 Chair/Byw-jc-Bpqfd Xfer(QC): 4 Car Transfer (QC): 88 Gait Training Does the Patient Walk?: Yes Distance: 250', 120' Walk 10 feet (QC): 4 Walk 50 ft with 2 Turns(QC): 4 Walk 150 ft (QC): 4 Walking 10ft/uneven surface-QC: 88 Gait Persons Needed: 1 Gait Assistive Device: FWW Wheelchair Training Does the Pt Use a Wheelchair?: No Wheel 50 ft with 2 turns (QC): 9 Wheel 150 ft (QC): 9 Stair Training #of Steps: 12 1 Step (curb) (QC): 4 4 Steps (QC): 4 12 Steps (QC): 4 Stairs: Pattern: Step to Balance Picking up an Object (QC): 88 ADL-Treatment Eating (QC): 6 Oral Hygiene (QC): 4 (standing w/ FWW GCA) Bathing Location: L Arm, R Arm, L Upper Leg, Chest, Abdomen, Perineal Area Shower/Bathe Self (QC): 3 Upper Body Dressing (QC): 5 Lower Body Dressing (QC): 3 On/Off Footwear (QC): 3 Toileting Hygiene (QC): 3 (Min assist) Assessment/Plan Assessment and Plan Assess & Plan/Chief Complaint Assessment: Right hip fracture from mechanical fall s/p repair 08/17/22 Apraxia Acoustic neuroma Falls HTN HLP BMI 22 Post op acute blood loss anemia Elevated LFT's Hypotension due to weight loss on antihypertensives Plan: Pain control BM regimen Home meds Aggressive rehab 08/20/2022: Supportive care Hold statin 08/21/2022: Improved status 08/22/2022: Hold lisinopril (1) Hip fracture (2) Acoustic neuroma (3) Hypertension (4) Hyperlipidemia (5) Glaucoma (6) Diverticulosis (7) Apraxia (8) Falls AMRIT ROQUE DO Aug 22, 2022 05:57
[2022-08-22] MEDS: MULTIVIT W/MINERALS TAB (THERAGRAN M) PO SCH (06:35)
[2022-08-22 07:30] VITALS: BP 106/70
--- NOTE | 2022-08-22 08:36 | Occupational Ther Daily Note ---
OT Current Status-Daily Note Subjective Pt up in recliner, agreeable to OT Tx Pt denies having pain ADL-Treatment Therapy Code Descriptions/Definitions Functional [place] Measure: 0=Not Assessed/NA 4=Minimal Assistance 1=Total Assistance 5=Supervision or Setup 2=Maximal Assistance 6=Modified [place] 3=Moderate Assistance 7=Complete IndependenceSCALE: Activities may be completed with or without assistive devices. 6-Uocsxtwrwx-ananwit completes the activity by him/herself with no assistance from a helper. 5-Set-up or Clean-up Assistance-helper sets up or cleans up; patient completes activity. [place] assists only prior to or following the activity. 4-Supervision or Touching Assistance-helper provides verbal cues and/or touching/steadying and/or contact guard assistance as patient completes activity. Assistance may be provided throughout the activity or intermittently. 3-Partial/Moderate Assistance-helper does LESS THAN HALF the effort. [place] lifts, holds or supports trunk or limbs, but provides less than half the effort. 2-Substantial/Maximal Assistance-helper does MORE THAN HALF the effort. [place] lifts or holds trunk or limbs and provides more than half the effort. 9-Syroawzte-rocqkz does ALL the effort. Patient does none of the effort to complete the activity. Or, the assistance of 2 or more helpers is required for the patient to complete the activity. If activity was not attempted, code reason: 7-Patient Refused. 9-Not Applicable-not attempted and the patient did not perform the activity before the current illness, exacerbation or injury. 10-Not Attempted due to Environmental Limitations-(lack of equipment, weather restraints, etc.). 88-Not Attempted due to Medical Conditions or Safety Concerns. Eating (QC): 5 (Per pt report) Oral Hygiene (QC): 4 (SBA standing at sink) Shower/Bathe Self (QC): 4 (SBA 100% seated. LHS for lower legs/feet) Upper Body Dressing (QC): 5 Lower Body Dressing (QC): 3 (Min A with AE) On/Off Footwear: 4 (SBA, pt able to doff/don gripper socks using AE, min VCs) Toileting Hygiene (QC): 4 (CGA) Toilet Transfer (QC): 4 (CGA) Other Treatment Pt in recliner, used FWW around room, CGA. Pt stood at drawers to gather clothes, min A dynamic standing balance. Pt transferred into bathroom and onto BSC over toilet. Pt completed toileting, then transferred to ND to complete showering and dressing. Pt given LHS and educated on how to wash/dry BLEs lower legs/feet. Pt stood at sink to complete oral care and grooming tasks, SBA. Pt returned to recliner, [facility] using FWW. In order to increase fine motor strength and coordination, pt removed beads from moderate resistance (Green) theraputty, able to locate all beads without cues. Post tx, pt in recliner, call light in reach and all needs met. Education OT Patient Education: Correct positioning, Modified ADL techniques, Progress toward Goal/Update tx plan, Purpose of tx/functional activities, Rehab process Teaching Recipient: Patient Teaching Methods: Discussion Response to Teaching: Verbalize Understanding OT Short Term Goals Short Term Goals Time Frame: Aug 27, 2022 Eatin Oral hygiene: 6 Toileting hygiene: 4 Shower/bathe self: 4 Upper body dressin Lower body dressin (with AE) Putting on/taking off footwear: 4 (with AE) OT Half-Way Goals Spinal Surgeon Goals Time Frame: Sep 10, 2022 Acute change in mental status: 0 Inattention: 0 Disorganized thinkin Altered level of consciousness: 0 Eating (QC): 6 Oral Hygiene (QC): 6 Toileting Hygiene (QC): 6 Shower/Bathe Self (QC): 5 Upper Body Dressing (QC): 6 Lower Body Dressing (QC): 6 On/Off Footwear (QC): 6 Additional Goals: 1-Demonstrate ADL Tasks, 2-Verbalize Understanding, 3- ImproveStrength/Thony 1=Demonstrate adherence to instructed precautions during ADL tasks. 2=Patient will verbalize/demonstrate understanding of assistive devices/modifications for ADL. 3=Patient will improve strength/tolerance for activity to enable patient to perform ADL's. OT Education/Plan Problem List/Assessment Assessment: Decreased Activ Tolerance, Decreased UE Strength, Impaired Coordination, Impaired Funct Balance, Impaired I ADL's, Impaired Self-Care Skills Discharge Recommendations Plan/Recommendations: Continue POC Treatment Plan/Plan of Care Patient would benefit from OT for education, treatment and training to promote independence in ADL's, mobility, safety and/or upper extremity function for ADL's. Plan of Care: ADL Retraining, Functional Mobility, UE Funct Exercise/Act Treatment Duration: Sep 10, 2022 Frequency: At least 5 of 7 days/Wk (IRF) Estimated Hrs Per Day: 1.5 hours per day Agreement: Yes Rehab Potential: Good Time Start Time: 07:20 Stop Time: 08:50 DATE: Aug 22, 2022 Total Time Billed (hr/min): 90 Billed Treatment Time 1, ADL 4 (60'), FA 2 (30') OWEN LEUNG OT Aug 22, 2022 08:36
[2022-08-22] MEDS: polyethylene glycoL POWDER 17 GM (MIRALAX) PACK PO SCH ×2 (08:43→19:21)
[2022-08-22] MEDS: SENNA W/DOCUSATE (SENOKOT S) TABLET PO SCH ×2 (08:44→22:12)
[2022-08-22] MEDS: lisINopril 10 MG (PRINIVIL) TABLET PO SCH (08:46)
[2022-08-22] MEDS: DOCUSATE SODIUM 100 MG (COLACE) CAP PO SCH ×2 (08:47→22:12)
[2022-08-22 08:48] VITALS: BP 88/46
[2022-08-22] MEDS: ENOXAPARIN 40 MG/0.4 ML (LOVENOX) SYR SC SCH (08:48)
--- NOTE | 2022-08-22 11:15 | Physical Therapy Daily Note ---
PT Daily Note-Current Subjective Pt sitting in recliner with feet elevated upon arrival. Pt agrees to PT. Pain Section J - Health Conditions 1. Rarely or not at all 2. Occasionally 3. Frequently 4. Almost constantly 8. Unable to answer Pain Effect on Sleep: 1 Pain Interference with Therapy: 1 Pain Interference w/Day-to-Day: 1 Mental Status Patient Orientation: Person, Place, Time, Situation Transfers SCALE: Activities may be completed with or without assistive devices. 3-Sfmmkgegme-adysvgm completes the activity by him/herself with no assistance from a helper. 5-Set-up or Clean-up Assistance-helper sets up or cleans up; patient completes activity. [place] assists only prior to or following the activity. 4-Supervision or Touching Assistance-helper provides verbal cues and/or touching/steadying and/or contact guard assistance as patient completes activity. Assistance may be provided throughout the activity or intermittently. 3-Partial/Moderate Assistance-helper does LESS THAN HALF the effort. [place] lifts, holds or supports trunk or limbs, but provides less than half the effort. 2-Substantial/Maximal Assistance-helper does MORE THAN HALF the effort. [place] lifts or holds trunk or limbs and provides more than half the effort. 3-Jljyanewj-imvlqb does ALL the effort. Patient does none of the effort to complete the activity. Or, the assistance of 2 or more helpers is required for the patient to complete the activity. If activity was not attempted, code reason: 7-Patient Refused. 9-Not Applicable-not attempted and the patient did not perform the activity before the current illness, exacerbation or injury. 10-Not Attempted due to Environmental Limitations-(lack of equipment, weather restraints, etc.). 88-Not Attempted due to Medical Conditions or Safety Concerns. Sit to Stand (QC): 3 Weight Bearing Right Lower Extremity: Right Weight Bearing/Tolerated Left Lower Extremity: Left Full Weight Bearing Gait Training Does the Patient Walk?: Yes Distance: 150' x2 Walk 10 feet (QC): 3 Walk 50 ft with 2 Turns(QC): 3 Walk 150 ft (QC): 3 Gait Persons Needed: 1 Gait Assistive Device: FWW Wheelchair Training Does the Pt Use a Wheelchair?: No Exercises Supine Ex: Ankle pumps, Quad Set, Glut sets, Heel Slides, Short Arc Quads, Straight leg raise, Hip abd/add Supine Reps: 15 Seated Therapy Exercises: Ankle pumps, Long arc quads, Hip flexion, Hip abd/add, Glut set Seated Reps: 15 NuStep Minutes: 20 NuStep Workload: 4 Treatments TF to standing, amb. in hallway then uses NuStep. After short RB, pt TF to Therapy Mat and completes Supine & Seated Ex. After RB, pt amb. in hallway and returns to recliner to rest. Pt is repositioned to comfort with all needs met, call light in hand. Assessment Current Status: Good Progress Pt is a little retropulsive with TF from sitting to standing. Pt recognizes this and tries to self correct but needs assistance to correct. PT Short Term Goals Short Term Goals Time Frame: Aug 27, 2022 Roll Left & Right: 6 Sit to lyin Lying to sitting on side of be: 6 Sit to stand: 6 Chair/ong-dh-mydgq transfer: 6 Toilet transfer: 6 Car transfer: 6 Walk 10 feet: 6 Walk 50 feet with two turns: 6 Walk 150 feet: 6 Walking 10ft on uneven surface: 6 1 step (curb): 6 4 steps: 5 12 steps: 5 PT Dyer Helper Goals Dyer Helper Goals PT Care Home Goals Time Frame: Sep 03, 2022 Roll Left & Right (QC): 6 Sit to Lying (QC): 6 Lying-Sitting on Side/Bed(QC): 6 Sit to Stand (QC): 6 Chair/Hpc-ct-Sdnll Xfer(QC): 6 Toilet Transfer (QC): 6 Car Transfer (QC): 6 Does the Patient Walk: Yes Walk 10 feet (QC): 6 Walk 50ft with 2 Turns (QC): 6 Walk 150 ft (QC): 6 Walking 10ft on Uneven Surface: 6 1 Step (curb) (QC): 6 4 Steps (QC): 6 12 Steps (QC): 6 Picking up an Object (QC): 88 Does the Pt use WC or Scooter?: No Wheel 50 feet with 2 turns (QC: 9 Wheel 150 feet: 9 PT Plan Problem List Problem List: Activity Tolerance, Functional Strength, Balance, Gait, Transfer Treatment/Plan Treatment Plan: Continue Plan of Care Treatment Plan: Bed Mobility, Concurrent Therapy, Education, Functional Act ivity Thony, Functional Strength, Group Therapy, Gait, Safety, Therapeutic Exercise, Transfers Treatment Duration: Sep 03, 2022 Frequency: At least 5 of 7 days/Wk (IRF) Estimated Hrs Per Day: 1.5 hours per day Patient and/or Family Agrees t: Yes Safety Risks/Education Patient Education: Gait Training, Transfer Techniques, Issued Written HEP, Correct Positioning Teaching Recipient: Patient Teaching Methods: Demonstration, Discussion Response to Teaching: Verbalize Understanding, Return Demonstration Time Time In: 945 Time Out: 1115 DATE: Aug 22, 2022 Total Billed Treatment Time: 90 Total Billed Treatment 1, EX x3 (50m), GT x2 (30m) & FA (10m) JADEN VERDUZCO INCINERATOR PLANT SUPERVISOR Aug 22, 2022 11:15
[2022-08-22 12:11] VITALS: BP 102/68
[2022-08-22 19:39] VITALS: BP 99/56
[2022-08-22] MEDS: LATANOPROST 0.005% (XALATAN) OPHTH SOLN 2.5 ML OU SCH (22:12)
[2022-08-22] MEDS: MELATONIN 3 MG TABLET PO PRN (22:12)
[2022-08-23] MEDS: MULTIVIT W/MINERALS TAB (THERAGRAN M) PO SCH (05:55)
--- NOTE | 2022-08-23 06:11 | PM&R Progress Note ---
Subjective HPI/CC On Admission Date Seen by Provider: Aug 23, 2022 Time Seen by Provider: 12:00 Subjective/Events-last exam 08/23/2022: Patient doing much better Pain is controlled Bowels are moving Blood pressure improved with lisinopril on hold 08/22/2022: Patient doing much better Wants to go home soon Participating in therapy Blood Pressure was fairly low so holding lisinopril Patient is lost 40 pounds last year 08/21/2022: Doing very well Pain controlled BM+ No nausea Working with PT OT 08/20/2022: Doing well No pain currently Moving around well BM+ No falls DC [facility] and that was before hip fracture was dx Review of Systems General: Fatigue, Malaise Musculoskeletal: leg pain Objective Exam Vital Signs Vital Signs Date Time Temp Pulse Resp B/P (MAP) Pulse Ox O2 Delivery O2 Flow Rate FiO2 08/23/22 09:00 Room Air 08/23/22 07:56 37.2 105 18 117/75 (89) 95 Capillary Refill : General Appearance: No Apparent Distress, WD/WN, Thin HEENT: PERRL/EOMI, Normal ENT Inspection, Pharynx Normal Neck: Full Range of Motion, Normal Inspection, Non Tender, Supple, Carotid Bruit Respiratory: Chest Non Tender, Lungs Clear, Normal Breath Sounds, No Accessory Muscle Use, No Respiratory Distress Cardiovascular: Regular Rate, Rhythm, No Edema, No Gallop, No JVD, No Murmur, Normal Peripheral Pulses Gastrointestinal: Normal Bowel Sounds, No Organomegaly, No Pulsatile Mass, Non Tender, Soft Back: Normal Inspection, No CVA Tenderness, No Vertebral Tenderness Extremity: Normal Capillary Refill, Normal Inspection, Normal Range of Motion (except right leg), Non Tender, No Calf Tenderness, No Pedal Edema Neurologic/Psychiatric: Alert, Oriented x3, Normal Mood/Affect, mothercraft nurse II-XII Norm as Tested, Abnormal Gait, Motor Weakness (right leg) Skin: Normal Color, Warm/Dry Lymphatic: No Adenopathy Results/Procedures Lab Patient resulted labs reviewed. FIM Transfers Therapy Code Descriptions/Definitions Functional [place] Measure: 0=Not Assessed/NA 4=Minimal Assistance 1=Total Assistance 5=Supervision or Setup 2=Maximal Assistance 6=Modified [place] 3=Moderate Assistance 7=Complete IndependenceSCALE: Activities may be completed with or without assistive devices. 4-Jeartdjqkc-hedraof completes the activity by him/herself with no assistance from a helper. 5-Set-up or Clean-up Assistance-helper sets up or cleans up; patient completes activity. [place] assists only prior to or following the activity. 4-Supervision or Touching Assistance-helper provides verbal cues and/or touching/steadying and/or contact guard assistance as patient completes activity. Assistance may be provided throughout the activity or intermittently. 3-Partial/Moderate Assistance-helper does LESS THAN HALF the effort. [place] lifts, holds or supports trunk or limbs, but provides less than half the effort. 2-Substantial/Maximal Assistance-helper does MORE THAN HALF the effort. [place] lifts or holds trunk or limbs and provides more than half the effort. 3-Gqikeftad-dohceq does ALL the effort. Patient does none of the effort to complete the activity. Or, the assistance of 2 or more helpers is required for the patient to complete the activity. If activity was not attempted, code reason: 7-Patient Refused. 9-Not Applicable-not attempted and the patient did not perform the activity before the current illness, exacerbation or injury. 10-Not Attempted due to Environmental Limitations-(lack of equipment, weather restraints, etc.). 88-Not Attempted due to Medical Conditions or Safety Concerns. Roll Left to Right (QC): 5 Sit to Lying (QC): 5 Sit to Stand (QC): 3 Chair/Nzg-eh-Stqch Xfer(QC): 4 Car Transfer (QC): 88 Gait Training Does the Patient Walk?: Yes Distance: 150' x2 Walk 10 feet (QC): 3 Walk 50 ft with 2 Turns(QC): 3 Walk 150 ft (QC): 3 Walking 10ft/uneven surface-QC: 88 Gait Persons Needed: 1 Gait Assistive Device: FWW Wheelchair Training Does the Pt Use a Wheelchair?: No Wheel 50 ft with 2 turns (QC): 9 Wheel 150 ft (QC): 9 Stair Training #of Steps: 12 1 Step (curb) (QC): 4 4 Steps (QC): 4 12 Steps (QC): 4 Stairs: Pattern: Step to Balance Picking up an Object (QC): 88 ADL-Treatment Eating (QC): 5 (Per pt report) Oral Hygiene (QC): 4 (SBA standing at sink) Bathing Location: L Arm, R Arm, L Upper Leg, Chest, Abdomen, Perineal Area Shower/Bathe Self (QC): 4 (SBA 100% seated. LHS for lower legs/feet) Upper Body Dressing (QC): 5 Lower Body Dressing (QC): 3 (Min A with AE) On/Off Footwear (QC): 4 (SBA, pt able to doff/don gripper socks using AE, min VCs) Toileting Hygiene (QC): 4 (CGA) Toilet Transfer (QC): 4 (CGA) Assessment/Plan Assessment and Plan Assess & Plan/Chief Complaint Assessment: Right hip fracture from mechanical fall s/p repair 08/17/22 Apraxia Acoustic neuroma Falls HTN HLP BMI 22 Post op acute blood loss anemia Elevated LFT's Hypotension due to weight loss on antihypertensives Plan: Pain control BM regimen Home meds Aggressive rehab 08/20/2022: Supportive care Hold statin 08/21/2022: Improved status 08/22/2022: Hold lisinopril 08/23/2022: Supportive care (1) Hip fracture (2) Acoustic neuroma (3) Hypertension (4) Hyperlipidemia (5) Glaucoma (6) Diverticulosis (7) Apraxia (8) Falls AMRIT ROQUE DO Aug 23, 2022 06:11
[2022-08-23 07:56] VITALS: BP 117/75
[2022-08-23] MEDS: DOCUSATE SODIUM 100 MG (COLACE) CAP PO SCH ×2 (08:07→20:48)
[2022-08-23] MEDS: SENNA W/DOCUSATE (SENOKOT S) TABLET PO SCH ×2 (08:07→20:48)
[2022-08-23] MEDS: ENOXAPARIN 40 MG/0.4 ML (LOVENOX) SYR SC SCH (08:08)
[2022-08-23] MEDS: polyethylene glycoL POWDER 17 GM (MIRALAX) PACK PO SCH ×2 (08:09→19:26)
[2022-08-23] MEDS: MELATONIN 3 MG TABLET PO PRN (20:48)
[2022-08-23] MEDS: LATANOPROST 0.005% (XALATAN) OPHTH SOLN 2.5 ML OU SCH (20:49)
[2022-08-23 20:54] VITALS: BP 115/57
[2022-08-24] MEDS: MULTIVIT W/MINERALS TAB (THERAGRAN M) PO SCH (06:32)
[2022-08-24 06:44] LABS: BASOPHILS # (AUTO) 0.1 10^3/uL (0.0-0.1); BASOPHILS % (AUTO) 0 % (0-10); EOSINOPHILS # (AUTO) 0.4 10^3/uL (0.0-0.3); EOSINOPHILS % (AUTO) 3 % (0-10); HEMATOCRIT 31 % (40-54); HEMOGLOBIN 10.2 g/dL (13.3-17.7); LYMPHOCYTES # (AUTO) 1.6 10^3/uL (1.0-4.0); LYMPHOCYTES % (AUTO) 12 % (12-44); MEAN CORPUSCULAR HEMOGLOBIN 30 pg (25-34); MEAN CORPUSCULAR HGB CONC 33 g/dL (32-36); MEAN CORPUSCULAR VOLUME 89 fL (80-99); MEAN PLATELET VOLUME 9.5 fL (9.0-12.2); MONOCYTES # (AUTO) 0.9 10^3/uL (0.0-1.0); MONOCYTES % (AUTO) 7 % (0-12); NEUTROPHILS # (AUTO) 10.6 10^3/uL (1.8-7.8); NEUTROPHILS % (AUTO) 78 % (42-75); PLATELET COUNT 541 10^3/uL (130-400); WHITE BLOOD COUNT 13.6 10^3/uL (4.3-11.0)
[2022-08-24 07:18] LABS: ALBUMIN 2.8 GM/DL (3.2-4.5); BILIRUBIN,TOTAL 0.4 MG/DL (0.1-1.0); CREATININE SERUM 0.72 MG/DL (0.60-1.30); POTASSIUM 4.1 MMOL/L (3.6-5.0); TOTAL PROTEIN 5.9 GM/DL (6.4-8.2)
[2022-08-24 07:24] VITALS: BP 134/79
[2022-08-24] MEDS: SENNA W/DOCUSATE (SENOKOT S) TABLET PO SCH ×2 (08:22→21:51)
[2022-08-24] MEDS: polyethylene glycoL POWDER 17 GM (MIRALAX) PACK PO SCH ×2 (08:22→21:51)
[2022-08-24] MEDS: DOCUSATE SODIUM 100 MG (COLACE) CAP PO SCH ×2 (08:22→21:50)
[2022-08-24] MEDS: ENOXAPARIN 40 MG/0.4 ML (LOVENOX) SYR SC SCH (08:22)
--- NOTE | 2022-08-24 08:49 | Occupational Ther Daily Note ---
OT Current Status-Daily Note Subjective Pt denies pain, requests a shower. Appearance Pt returned to sitting in recliner, all needs within reach at OT departure. Mental Status/Objective Patient Orientation: Person, Place, Situation ADL-Treatment Therapy Code Descriptions/Definitions Functional [place] Measure: 0=Not Assessed/NA 4=Minimal Assistance 1=Total Assistance 5=Supervision or Setup 2=Maximal Assistance 6=Modified [place] 3=Moderate Assistance 7=Complete IndependenceSCALE: Activities may be completed with or without assistive devices. 0-Aigqvnbnko-qwuzfhf completes the activity by him/herself with no assistance from a helper. 5-Set-up or Clean-up Assistance-helper sets up or cleans up; patient completes activity. [place] assists only prior to or following the activity. 4-Supervision or Touching Assistance-helper provides verbal cues and/or touching/steadying and/or contact guard assistance as patient completes activ ity. Assistance may be provided throughout the activity or intermittently. 3-Partial/Moderate Assistance-helper does LESS THAN HALF the effort. [place] lifts, holds or supports trunk or limbs, but provides less than half the effort. 2-Substantial/Maximal Assistance-helper does MORE THAN HALF the effort. [place] lifts or holds trunk or limbs and provides more than half the effort. 3-Ckcrdscsh-rcrwny does ALL the effort. Patient does none of the effort to complete the activity. Or, the assistance of 2 or more helpers is required for the patient to complete the activity. If activity was not attempted, code reason: 7-Patient Refused. 9-Not Applicable-not attempted and the patient did not perform the activity before the current illness, exacerbation or injury. 10-Not Attempted due to Environmental Limitations-(lack of equipment, weather restraints, etc.). 88-Not Attempted due to Medical Conditions or Safety Concerns. Eating (QC): 5 Oral Hygiene (QC): 4 Shower/Bathe Self (QC): 4 Upper Body Dressing (QC): 5 Lower Body Dressing (QC): 4 On/Off Footwear: 5 (with use of sock aid) Toileting Hygiene (QC): 4 Toilet Transfer (QC): 4 Shower performed; majority completed in sitting. Hip incision covered by OT, C/D/I post activity. Pt stood only briefly to wash andi area/buttocks, Close supervision for safety when standing. Good recall on hip precautions and use of LHS to wash LB. Clothing donned seated on shower bench. Extra time to thread RLE with use of mechanical meter tester but no cues/assist required. Supervision/CGA for safety as he stood to pull pants over hips. Pt stood at sink for oral care, intermittent CGA for safety as pt exhibits mild unsteadiness with prolonged standing. Other Treatment Ataxic like movements throughout treatment. Pt reports this is normal secondary to benign brain tumor. He participated in seated UE exercises with 3# dowel josesito. Poor core strength exhibited when back support removed. Heavy focus on maintaining midline/core control throughout exercises. Pt able to move all joints through full range, 8-12 reps each set. Min cues for breathing techniques as pt has tendency to hold breath. Education OT Patient Education: Correct positioning, Energy conservation, Exercise program, Modified ADL techniques, Progress toward Goal/Update tx plan, Purpose of tx/functional activities, Reviewed precautions, Rehab process, Safety issues, Transfer techniques Teaching Recipient: Patient Teaching Methods: Demonstration, Discussion Response to Teaching: Verbalize Understanding, Return Demonstration, Reinforcement Needed OT Short Term Goals Short Term Goals Time Frame: Aug 27, 2022 Eatin Oral hygiene: 6 Toileting hygiene: 4 Shower/bathe self: 4 Upper body dressin Lower body dressin (with AE) Putting on/taking off footwear: 4 (with AE) OT [facility] Goals Order Management Specialist Goals Time Frame: Sep 10, 2022 Acute change in mental status: 0 Inattention: 0 Disorganized thinkin Altered level of consciousness: 0 Eating (QC): 6 Oral Hygiene (QC): 6 Toileting Hygiene (QC): 6 Shower/Bathe Self (QC): 5 Upper Body Dressing (QC): 6 Lower Body Dressing (QC): 6 On/Off Footwear (QC): 6 Additional Goals: 1-Demonstrate ADL Tasks, 2-Verbalize Understanding, 3- ImproveStrength/Thony 1=Demonstrate adherence to instructed precautions during ADL tasks. 2=Patient will verbalize/demonstrate understanding of assistive devices/modifications for ADL. 3=Patient will improve strength/tolerance for activity to enable patient to perform ADL's. OT Education/Plan Problem List/Assessment Assessment: Decreased Activ Tolerance, Decreased UE Strength, Impaired Funct Balance, Impaired I ADL's, Impaired Self-Care Skills Discharge Recommendations Plan/Recommendations: Continue POC Therapy Discharge Recommendati: Post Acute OT (Home health OT) Equpiment Recommendations-D/C: Bath Chair, Sales Representative Supervisor, Bedside Commode, Hip Kit, Sock Aide Treatment Plan/Plan of Care Treatment,Training & Education: Yes Patient would benefit from OT for education, treatment and training to promote independence in ADL's, mobility, safety and/or upper extremity function for ADL's. Plan of Care: ADL Retraining, Functional Mobility, UE Funct Exercise/Act Treatment Duration: Sep 10, 2022 Frequency: At least 5 of 7 days/Wk (IRF) Estimated Hrs Per Day: 1.5 hours per day Agreement: Yes Rehab Potential: Good Time Start Time: 07:20 Stop Time: 08:50 DATE: Aug 24, 2022 Total Time Billed (hr/min): 90 Billed Treatment Time 1 visit ADL x4 (60 min) EX x2 (30 min) Agueda Donaldson OT Aug 24, 2022 08:49
--- NOTE | 2022-08-24 09:47 | PM&R Progress Note ---
Subjective HPI/CC On Admission Date Seen by Provider: Aug 24, 2022 Time Seen by Provider: 09:15 Subjective/Events-last exam 08/24/2022: Pt is doing really well White count is 13.6 Hemoglobin is 10 Pain is controlled No falls 08/23/2022: Patient doing much better Pain is controlled Bowels are moving Blood pressure improved with lisinopril on hold 08/22/2022: Patient doing much better Wants to go home soon Participating in therapy Blood Pressure was fairly low so holding lisinopril Patient is lost 40 pounds last year 08/21/2022: Doing very well Pain controlled BM+ No nausea Working with PT OT 08/20/2022: Doing well No pain currently Moving around well BM+ No falls DC Prednisone since I reviewed [facility] chart and it was for piriformis syndrome and that was before hip fracture was dx Objective Exam Vital Signs Vital Signs Date Time Temp Pulse Resp B/P (MAP) Pulse Ox O2 Delivery O2 Flow Rate FiO2 08/24/22 21:40 95 Room Air 08/24/22 20:15 37.4 110 20 111/66 (81) Capillary Refill : General Appearance: No Apparent Distress, WD/WN, Thin HEENT: PERRL/EOMI, Normal ENT Inspection, Pharynx Normal Neck: Full Range of Motion, Normal Inspection, Non Tender, Supple, Carotid Bruit Respiratory: Chest Non Tender, Lungs Clear, Normal Breath Sounds, No Accessory Muscle Use, No Respiratory Distress Cardiovascular: Regular Rate, Rhythm, No Edema, No Gallop, No JVD, No Murmur, Normal Peripheral Pulses Gastrointestinal: Normal Bowel Sounds, No Organomegaly, No Pulsatile Mass, Non Tender, Soft Back: Normal Inspection, No CVA Tenderness, No Vertebral Tenderness Extremity: Normal Capillary Refill, Normal Inspection, Normal Range of Motion (except right leg), Non Tender, No Calf Tenderness, No Pedal Edema Neurologic/Psychiatric: Alert, Oriented x3, Normal Mood/Affect, water supply technician II-XII Norm as Tested, Abnormal Gait, Motor Weakness (right leg) Skin: Normal Color, Warm/Dry Lymphatic: No Adenopathy Results/Procedures Lab Laboratory Tests 08/24/22 06:41 Patient resulted labs reviewed. FIM Transfers Therapy Code Descriptions/Definitions Functional [place] Measure: 0=Not Assessed/NA 4=Minimal Assistance 1=Total Assistance 5=Supervision or Setup 2=Maximal Assistance 6=Modified [place] 3=Moderate Assistance 7=Complete IndependenceSCALE: Activities may be completed with or without assistive devices. 1-Fhqkouivwf-vydapel completes the activity by him/herself with no assistance from a helper. 5-Set-up or Clean-up Assistance-helper sets up or cleans up; patient completes activity. [place] assists only prior to or following the activity. 4-Supervision or Touching Assistance-helper provides verbal cues and/or touching/steadying and/or contact guard assistance as patient completes activity. Assistance may be provided throughout the activity or intermittently. 3-Partial/Moderate Assistance-helper does LESS THAN HALF the effort. [place] lifts, holds or supports trunk or limbs, but provides less than half the effort. 2-Substantial/Maximal Assistance-helper does MORE THAN HALF the effort. [place] lifts or holds trunk or limbs and provides more than half the effort. 8-Frycqmmse-vxtxir does ALL the effort. Patient does none of the effort to complete the activity. Or, the assistance of 2 or more helpers is required for the patient to complete the activity. If activity was not attempted, code reason: 7-Patient Refused. 9-Not Applicable-not attempted and the patient did not perform the activity before the current illness, exacerbation or injury. 10-Not Attempted due to Environmental Limitations-(lack of equipment, weather restraints, etc.). 88-Not Attempted due to Medical Conditions or Safety Concerns. Roll Left to Right (QC): 5 Sit to Lying (QC): 5 Sit to Stand (QC): 3 Chair/Bjz-co-Vsezd Xfer(QC): 4 Car Transfer (QC): 88 Gait Training Does the Patient Walk?: Yes Distance: 150' x2 Walk 10 feet (QC): 3 Walk 50 ft with 2 Turns(QC): 3 Walk 150 ft (QC): 3 Walking 10ft/uneven surface-QC: 88 Gait Persons Needed: 1 Gait Assistive Device: FWW Wheelchair Training Does the Pt Use a Wheelchair?: No Wheel 50 ft with 2 turns (QC): 9 Wheel 150 ft (QC): 9 Stair Training #of Steps: 12 1 Step (curb) (QC): 4 4 Steps (QC): 4 12 Steps (QC): 4 Stairs: Pattern: Step to Balance Picking up an Object (QC): 88 ADL-Treatment Eating (QC): 5 Oral Hygiene (QC): 4 Bathing Location: L Arm, R Arm, L Upper Leg, Chest, Abdomen, Perineal Area Shower/Bathe Self (QC): 4 Upper Body Dressing (QC): 5 Lower Body Dressing (QC): 4 On/Off Footwear (QC): 5 (with use of sock aid) Toileting Hygiene (QC): 4 Toilet Transfer (QC): 4 Assessment/Plan Assessment and Plan Assess & Plan/Chief Complaint Assessment: Right hip fracture from mechanical fall s/p repair 08/17/22 Apraxia Acoustic neuroma Falls HTN HLP BMI 22 Post op acute blood loss anemia Elevated LFT's Hypotension due to weight loss on antihypertensives Plan: Pain control BM regimen Home meds Aggressive rehab 08/20/2022: Supportive care Hold statin 08/21/2022: Improved status 08/22/2022: Hold lisinopril 08/23/2022: Supportive care 08/24/2022: Supportive care Monitor closely Check xray tomorrow (1) Hip fracture (2) Acoustic neuroma (3) Hypertension (4) Hyperlipidemia (5) Glaucoma (6) Diverticulosis (7) Apraxia (8) Falls AMRIT ROQUE DO Aug 24, 2022 09:47
--- NOTE | 2022-08-24 11:15 | Physical Therapy Daily Note ---
PT Daily Note-Current Subjective Pt sitting in recliner upon arrival. Pt agrees to PT. Pain Section J - Health Conditions 1. Rarely or not at all 2. Occasionally 3. Frequently 4. Almost constantly 8. Unable to answer Pain Effect on Sleep: 1 Pain Interference with Therapy: 1 Pain Interference w/Day-to-Day: 1 Transfers SCALE: Activities may be completed with or without assistive devices. 1-Kcypyojjfm-awjazui completes the activity by him/herself with no assistance from a helper. 5-Set-up or Clean-up Assistance-helper sets up or cleans up; patient completes activity. [place] assists only prior to or following the activity. 4-Supervision or Touching Assistance-helper provides verbal cues and/or touching/steadying and/or contact guard assistance as patient completes activity. Assistance may be provided throughout the activity or intermittently. 3-Partial/Moderate Assistance-helper does LESS THAN HALF the effort. [place] lifts, holds or supports trunk or limbs, but provides less than half the effort. 2-Substantial/Maximal Assistance-helper does MORE THAN HALF the effort. [place] lifts or holds trunk or limbs and provides more than half the effort. 2-Uqpghvttb-xtnngq does ALL the effort. Patient does none of the effort to complete the activity. Or, the assistance of 2 or more helpers is required for the patient to complete the activity. If activity was not attempted, code reason: 7-Patient Refused. 9-Not Applicable-not attempted and the patient did not perform the activity before the current illness, exacerbation or injury. 10-Not Attempted due to Environmental Limitations-(lack of equipment, weather restraints, etc.). 88-Not Attempted due to Medical Conditions or Safety Concerns. Sit to Stand (QC): 5 Weight Bearing Right Lower Extremity: Right Weight Bearing/Tolerated Left Lower Extremity: Left Full Weight Bearing Gait Training Does the Patient Walk?: Yes Distance: 300', 150' Walk 10 feet (QC): 4 Walk 50 ft with 2 Turns(QC): 4 Walk 150 ft (QC): 4 Gait Assistive Device: FWW Pt walks with Trendelenburg and Hip Hiking posture. Pt doesn't report pain or discomfort with WB. Wheelchair Training Does the Pt Use a Wheelchair?: No Exercises Seated Therapy Exercises: Ankle pumps, Long arc quads, Hip flexion, Hamstring Curls, Hip abd/add, Glut set Seated Reps: 15 Treatments TF to standing, declines need for BR. Pt amb. in hallway, taking RB as needed. Pt completes Seated EX with RB as needed. Pt amb. in hallway and returns to room at end of tx. All needs met, call light in hand. Assessment Current Status: Fair Progress Pt pushes himself and is very motivated but still demonstrates B LE weakness tawnya. seen while amb. PT Short Term Goals Short Term Goals Time Frame: Aug 27, 2022 Roll Left & Right: 6 Sit to lyin Lying to sitting on side of be: 6 Sit to stand: 6 Chair/uju-jf-ywrzm transfer: 6 Toilet transfer: 6 Car transfer: 6 Walk 10 feet: 6 Walk 50 feet with two turns: 6 Walk 150 feet: 6 Walking 10ft on uneven surface: 6 1 step (curb): 6 4 steps: 5 12 steps: 5 PT Shelter Goals Shelter Goals PT Printing Screen Assembler Goals Time Frame: Sep 03, 2022 Roll Left & Right (QC): 6 Sit to Lying (QC): 6 Lying-Sitting on Side/Bed(QC): 6 Sit to Stand (QC): 6 Chair/Eqf-cj-Kyidq Xfer(QC): 6 Toilet Transfer (QC): 6 Car Transfer (QC): 6 Does the Patient Walk: Yes Walk 10 feet (QC): 6 Walk 50ft with 2 Turns (QC): 6 Walk 150 ft (QC): 6 Walking 10ft on Uneven Surface: 6 1 Step (curb) (QC): 6 4 Steps (QC): 6 12 Steps (QC): 6 Picking up an Object (QC): 88 Does the Pt use WC or Scooter?: No Wheel 50 feet with 2 turns (QC: 9 Wheel 150 feet: 9 PT Plan Problem List Problem List: Activity Tolerance, Functional Strength, Gait Treatment/Plan Treatment Plan: Continue Plan of Care Treatment Plan: Bed Mobility, Concurrent Therapy, Education, Functional Activity Thony, Functional Strength, Group Therapy, Gait, Safety, Therapeutic Exercise, Transfers Treatment Duration: Sep 03, 2022 Frequency: At least 5 of 7 days/Wk (IRF) Estimated Hrs Per Day: 1.5 hours per day Patient and/or Family Agrees t: Yes Safety Risks/Education Patient Education: Gait Training, Correct Positioning Teaching Recipient: Patient Teaching Methods: Discussion Response to Teaching: Verbalize Understanding Time Time In: 1015 Time Out: 1115 DATE: Aug 24, 2022 Total Billed Treatment Time: 60 Total Billed Treatment 1, GT x2 (30m) & EX x2 (30m) JADEN VERDUZCO NICKEL PLATER Aug 24, 2022 11:15
[2022-08-24] MEDS ORDERED: HYPOCHLOROUS ACID/NaCl (VASHE) 250 ML IR PRN (13:00)
--- NOTE | 2022-08-24 13:25 | Wound Care Assessment ---
Wound Care Assessment Date Seen by Provider: Aug 24, 2022 Time Seen by Provider: 13:18 Chief Complaint s/p Right hip fracture repair HPI Mr. Patterson is a 67 year old male who presented to the inpatient rehab here at [facility] on AUG 18 s/p right hip fracture repair at [facility] in [place], [place]. Patient initially fell about 4 weeks ago but only had mild pain. At the ED no fracture was noted on plain films so he was sent home. Pain worsened and plain films ordered by his PCP at that time showed a fracture. Surgery was performed by Dr. Doss at [facility] on AUG 18. 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 Wound care was consulted for a pressure area on his sacral region alongside a rash on his back and chest. Patient and nurse reports the pressure area was initially noticed on Jul. Rash was also noticed at this time. Patient says rash has been getting worse but he denies any pruritis or discomfort. He has not changed detergents or soaps. Of note, patient commonly gets heat rash but says this looks a bit worse but feels the same. The area of pressure has been treated with dressing changes but has been moist with serous drainage. He denies pain in the area. Patient has no other complaints at this time. 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 Quit about 5 years ago.) Alcohol Use: Regular Use (3 beers per day) Review of Systems General: No Chills, No Fatigue HEENT: No Head Aches, No Visual Changes Pulmonary: No Dyspnea, No Cough Cardiovascular: No: Chest Pain, Palpitations Gastrointestinal: No: Nausea, Vomiting, Abdominal Pain Musculoskeletal: other (Generalized right hip pain s/p surgery) Neurological: No: Change in speech, Confusion Exam Vital Signs Date Time Temp Pulse Resp B/P (MAP) Pulse Ox O2 Delivery O2 Flow Rate FiO2 08/24/22 09:24 Room Air 08/24/22 07:24 36.8 107 18 134/79 (97) 92 Capillary Refill : General Appearance: WD/WN, no apparent distress HEENT: No pale conjunctivae (R), No pale conjunctivae (L) Cardiovascular: no edema, no murmur, tachycardia (Borderline, around 100 BPM) Respiratory: chest non-tender, lungs clear, normal breath sounds, no respiratory distress, no accessory muscle use Extremities: other (Dressing over right hip) Skin: rash (Rash over back and chest. Papulopustular rash without discomfort or pruritis. No drainage.) Skin Problem Location: torso Rash as mentioned above Pressure ulcer overlying the sacrum that measures 10 x 5 x 0.5 cm. Primary etiology is pressure. Stage 3. There is no tunneling or undermining. Large amount of serous drainage. Wound margins show epibole. There is no granulation. Necrotic is medium and slough. Epithelialization is small and pink. Results Laboratory Tests 08/24/22 06:41: White Blood Count 13.6H, Red Blood Count 3.46L, Hemoglobin 10.2L, Hematocrit 31L , Mean Corpuscular Volume 89, Mean Corpuscular Hemoglobin 30, Mean Corpuscular Hemoglobin Concent 33, Red Cell Distribution Width 12.6, Platelet Count 541H, Mean Platelet Volume 9.5, Immature Granulocyte % (Auto) 1, Neutrophils (%) (Auto) 78H, Lymphocytes (%) (Auto) 12, Monocytes (%) (Auto) 7, Eosinophils (%) (Auto) 3, Basophils (%) (Auto) 0, Neutrophils # (Auto) 10.6H, Lymphocytes # (Auto) 1.6, Monocytes # (Auto) 0.9, Eosinophils # (Auto) 0.4H, Basophils # (Auto) 0.1, Immature Granulocyte # (Auto) 0.1, Sodium Level 134L, Potassium Level 4.1, Chloride Level 99, Carbon Dioxide Level 26, Anion Gap 9, Blood Urea Nitrogen 17, Creatinine 0.72, Estimat Glomerular Filtration Rate 100, BUN/Creatinine Ratio 24, Glucose Level 98, Calcium Level 9.0, Corrected Calcium 10.0, Total Bilirubin 0.4, Aspartate Amino Transf (AST/SGOT) 25, Alanine Aminotransferase (ALT/SGPT) 42, Alkaline Phosphatase 88, Total Protein 5.9L, Albumin 2.8L Assessment/Plan/Dx s/p Right hip fracture and repair Repair on AUG 18 Arrived to [facility] on AUG 18 Papulopustular skin rash Back and torso Pressure ulcer of sacrum Stage 3 1. Continue PT/OT 2. Continue management per primary team 3. Chronic and recurrent in nature. Patient denies pruritis. Would consider pustular psoriasis, dermatitis herpetiformis, and PLEVA in differential. I will defer treatment to patient's PCP. He declines need for additional treatment currently as this is unchanged from past. 4. Silver alginate and border foam dressing were placed over sacral pressure ulcer. Change BID and PRN. Limit time sitting as possible and offload area as much as possible. 5. Follow-up with wound-care clinic after hospital d/c. Supervisory-Addendum Brief Verification & Attestation Participated in pt care: history, MDM Personally performed: history, MDM, supervision of care Care discussed with: Medical Student Procedures: n/a Results interpretation: Verified all documentation MD CULLEN Carney NOAH S Aug 24, 2022 13:25 JORDAN CRAMER MD Aug 24, 2022 15:59
--- NOTE | 2022-08-24 15:29 | Physical Therapy Daily Note ---
PT Daily Note-Current Subjective Pt sitting n recliner upon arrival. Pt agrees to PT. Pain Location: Right Location Body Site: Hip Pain Description: Ache Comment: Reports at end of tx but doesn't rate Section J - Health Conditions 1. Rarely or not at all 2. Occasionally 3. Frequently 4. Almost constantly 8. Unable to answer Pain Effect on Sleep: 1 Pain Interference with Therapy: 1 Pain Interference w/Day-to-Day: 1 Mental Status Patient Orientation: Person, Place, Time, Situation Transfers SCALE: Activities may be completed with or without assistive devices. 0-Dmdyvtomli-tbbxvzn completes the activity by him/herself with no assistance from a helper. 5-Set-up or Clean-up Assistance-helper sets up or cleans up; patient completes activity. [place] assists only prior to or following the activity. 4-Supervision or Touching Assistance-helper provides verbal cues and/or touching/steadying and/or contact guard assistance as patient completes activity. Assistance may be provided throughout the activity or intermittently. 3-Partial/Moderate Assistance-helper does LESS THAN HALF the effort. [place] li fts, holds or supports trunk or limbs, but provides less than half the effort. 2-Substantial/Maximal Assistance-helper does MORE THAN HALF the effort. [place] lifts or holds trunk or limbs and provides more than half the effort. 0-Dvjefxssi-zievdm does ALL the effort. Patient does none of the effort to complete the activity. Or, the assistance of 2 or more helpers is required for the patient to complete the activity. If activity was not attempted, code reason: 7-Patient Refused. 9-Not Applicable-not attempted and the patient did not perform the activity before the current illness, exacerbation or injury. 10-Not Attempted due to Environmental Limitations-(lack of equipment, weather restraints, etc.). 88-Not Attempted due to Medical Conditions or Safety Concerns. Sit to Stand (QC): 3 Weight Bearing Right Lower Extremity: Right Weight Bearing/Tolerated Left Lower Extremity: Left Full Weight Bearing Gait Training Does the Patient Walk?: Yes Distance: 300' Walk 10 feet (QC): 4 Walk 50 ft with 2 Turns(QC): 4 Walk 150 ft (QC): 4 Gait Persons Needed: 1 Gait Assistive Device: FWW Treatments TF to Standing and amb. in hallway, RB required for fatigue before continuing amb. in hallway. Pt returns to room to rest in recliner at end of tx. All needs met, call light in hand. Assessment Current Status: Fair Progress Pt demonstrates increased fatigue in afternoon tx. PT Short Term Goals Short Term Goals Time Frame: Aug 27, 2022 Roll Left & Right: 6 Sit to lyin Lying to sitting on side of be: 6 Sit to stand: 6 Chair/whr-jj-hlwlv transfer: 6 Toilet transfer: 6 Car transfer: 6 Walk 10 feet: 6 Walk 50 feet with two turns: 6 Walk 150 feet: 6 Walking 10ft on uneven surface: 6 1 step (curb): 6 4 steps: 5 12 steps: 5 PT Safety Grooving Machine Operator Goals Half-Way Goals PT Safety Grooving Machine Operator Goals Time Frame: Sep 03, 2022 Roll Left & Right (QC): 6 Sit to Lying (QC): 6 Lying-Sitting on Side/Bed(QC): 6 Sit to Stand (QC): 6 Chair/Fap-hd-Fsqip Xfer(QC): 6 Toilet Transfer (QC): 6 Car Transfer (QC): 6 Does the Patient Walk: Yes Walk 10 feet (QC): 6 Walk 50ft with 2 Turns (QC): 6 Walk 150 ft (QC): 6 Walking 10ft on Uneven Surface: 6 1 Step (curb) (QC): 6 4 Steps (QC): 6 12 Steps (QC): 6 Picking up an Object (QC): 88 Does the Pt use WC or Scooter?: No Wheel 50 feet with 2 turns (QC: 9 Wheel 150 feet: 9 PT Plan Problem List Problem List: Activity Tolerance, Functional Strength, Gait Treatment/Plan Treatment Plan: Continue Plan of Care Treatment Plan: Bed Mobility, Concurrent Therapy, Education, Functional Activity Thony, Functional Strength, Group Therapy, Gait, Safety, Therapeutic Exercise, Transfers Treatment Duration: Sep 03, 2022 Frequency: At least 5 of 7 days/Wk (IRF) Estimated Hrs Per Day: 1.5 hours per day Patient and/or Family Agrees t: Yes Safety Risks/Education Patient Education: Gait Training, Correct Positioning, Safety Issues Teaching Recipient: Patient Teaching Methods: Discussion Response to Teaching: Verbalize Understanding Time Time In: 1330 Time Out: 1400 DATE: Aug 24, 2022 Total Billed Treatment Time: 30 Total Billed Treatment 1, GT x2 (30m) JADEN VERDUZCO HUMAN RESOURCES BENEFITS COORDINATOR Aug 24, 2022 15:29
[2022-08-24 20:15] VITALS: BP 111/66
[2022-08-24] MEDS ORDERED: HYPOCHLOROUS ACID/NaCl (VASHE) 250 ML IR SCH (21:00)
[2022-08-24] MEDS: LATANOPROST 0.005% (XALATAN) OPHTH SOLN 2.5 ML OU SCH (21:50)
[2022-08-24] MEDS: MELATONIN 3 MG TABLET PO PRN (21:51)
--- NOTE | 2022-08-25 05:35 | PM&R Progress Note ---
Subjective HPI/CC On Admission Date Seen by Provider: Aug 25, 2022 Time Seen by Provider: 08:45 Subjective/Events-last exam 08/25/2022: Pt is doing really well Discharge planned for later in week Pelvic x-ray will be done today Overall doing well 08/24/2022: Pt is doing really well White count is 13.6 Hemoglobin is 10 Pain is controlled No falls 08/23/2022: Patient doing much better Pain is controlled Bowels are moving Blood pressure improved with lisinopril on hold 08/22/2022: Patient doing much better Wants to go home soon Participating in therapy Blood Pressure was fairly low so holding lisinopril Patient is lost 40 pounds last year 08/21/2022: Doing very well Pain controlled BM+ No nausea Working with PT OT 08/20/2022: Doing well No pain currently Moving around well BM+ No falls [facility] and that was before hip fracture was dx Review of Systems General: Fatigue, Malaise Objective Exam Vital Signs Vital Signs Date Time Temp Pulse Resp B/P (MAP) Pulse Ox O2 Delivery O2 Flow Rate FiO2 08/25/22 21:15 94 Room Air 08/25/22 20:15 37.5 87 18 106/64 (78) Capillary Refill : General Appearance: No Apparent Distress, WD/WN, Thin HEENT: PERRL/EOMI, Normal ENT Inspection, Pharynx Normal Neck: Full Range of Motion, Normal Inspection, Non Tender, Supple, Carotid Bruit Respiratory: Chest Non Tender, Lungs Clear, Normal Breath Sounds, No Accessory Muscle Use, No Respiratory Distress Cardiovascular: Regular Rate, Rhythm, No Edema, No Gallop, No JVD, No Murmur, Normal Peripheral Pulses Gastrointestinal: Normal Bowel Sounds, No Organomegaly, No Pulsatile Mass, Non Tender, Soft Back: Normal Inspection, No CVA Tenderness, No Vertebral Tenderness Extremity: Normal Capillary Refill, Normal Inspection, Normal Range of Motion (except right leg), Non Tender, No Calf Tenderness, No Pedal Edema Neurologic/Psychiatric: Alert, Oriented x3, Normal Mood/Affect, coin dealer II-XII Norm as Tested, Abnormal Gait, Motor Weakness (right leg) Skin: Normal Color, Warm/Dry Lymphatic: No Adenopathy Results/Procedures Lab Patient resulted labs reviewed. FIM Transfers Therapy Code Descriptions/Definitions Functional [place] Measure: 0=Not Assessed/NA 4=Minimal Assistance 1=Total Assistance 5=Supervision or Setup 2=Maximal Assistance 6=Modified [place] 3=Moderate Assistance 7=Complete IndependenceSCALE: Activities may be completed with or without assistive devices. 5-Yluootdirs-qwwekov completes the activity by him/herself with no assistance from a helper. 5-Set-up or Clean-up Assistance-helper sets up or cleans up; patient completes activity. [place] assists only prior to or following the activity. 4-Supervision or Touching Assistance-helper provides verbal cues and/or touching/steadying and/or contact guard assistance as patient completes activity. Assistance may be provided throughout the activity or intermittently. 3-Partial/Moderate Assistance-helper does LESS THAN HALF the effort. [place] lifts, holds or supports trunk or limbs, but provides less than half the effort. 2-Substantial/Maximal Assistance-helper does MORE THAN HALF the effort. [place] lifts or holds trunk or limbs and provides more than half the effort. 6-Zjywxqlrj-lbpbrd does ALL the effort. Patient does none of the effort to complete the activity. Or, the assistance of 2 or more helpers is required for the patient to complete the activity. If activity was not attempted, code reason: 7-Patient Refused. 9-Not Applicable-not attempted and the patient did not perform the activity before the current illness, exacerbation or injury. 10-Not Attempted due to Environmental Limitations-(lack of equipment, weather restraints, etc.). 88-Not Attempted due to Medical Conditions or Safety Concerns. Roll Left to Right (QC): 5 Sit to Lying (QC): 5 Sit to Stand (QC): 3 Chair/Mtv-zj-Corrg Xfer(QC): 4 Car Transfer (QC): 88 Gait Training Does the Patient Walk?: Yes Distance: 300' Walk 10 feet (QC): 4 Walk 50 ft with 2 Turns(QC): 4 Walk 150 ft (QC): 4 Walking 10ft/uneven surface-QC: 88 Gait Persons Needed: 1 Gait Assistive Device: FWW Wheelchair Training Does the Pt Use a Wheelchair?: No Wheel 50 ft with 2 turns (QC): 9 Wheel 150 ft (QC): 9 Stair Training #of Steps: 12 1 Step (curb) (QC): 4 4 Steps (QC): 4 12 Steps (QC): 4 Stairs: Pattern: Step to Balance Picking up an Object (QC): 88 ADL-Treatment Eating (QC): 5 Oral Hygiene (QC): 4 Bathing Location: L Arm, R Arm, L Upper Leg, Chest, Abdomen, Perineal Area Shower/Bathe Self (QC): 4 Upper Body Dressing (QC): 5 Lower Body Dressing (QC): 4 On/Off Footwear (QC): 5 (with use of sock aid) Toileting Hygiene (QC): 4 Toilet Transfer (QC): 4 Assessment/Plan Assessment and Plan Assess & Plan/Chief Complaint Assessment: Right hip fracture from mechanical fall s/p repair 08/17/22 Apraxia Acoustic neuroma Falls HTN HLP BMI 22 Post op acute blood loss anemia Elevated LFT's Hypotension due to weight loss on antihypertensives Plan: Pain control BM regimen Home meds Aggressive rehab 08/20/2022: Supportive care Hold statin 08/21/2022: Improved status 08/22/2022: Hold lisinopril 08/23/2022: Supportive care 08/24/2022: Supportive care Monitor closely Check xray tomorrow 08/25/2022: Xray reveals good alignment (1) Hip fracture (2) Acoustic neuroma (3) Hypertension (4) Hyperlipidemia (5) Glaucoma (6) Diverticulosis (7) Apraxia (8) Falls AMRIT ROQUE DO Aug 25, 2022 05:35
[2022-08-25] MEDS: MULTIVIT W/MINERALS TAB (THERAGRAN M) PO SCH (06:52)
[2022-08-25 07:33] VITALS: BP 111/71
[2022-08-25] MEDS: ENOXAPARIN 40 MG/0.4 ML (LOVENOX) SYR SC SCH (08:43)
[2022-08-25] MEDS: polyethylene glycoL POWDER 17 GM (MIRALAX) PACK PO SCH ×2 (08:43→21:17)
[2022-08-25] MEDS: SENNA W/DOCUSATE (SENOKOT S) TABLET PO SCH ×2 (08:44→21:16)
[2022-08-25] MEDS: DOCUSATE SODIUM 100 MG (COLACE) CAP PO SCH ×2 (08:44→21:16)
--- NOTE | 2022-08-25 10:11 | Occupational Ther Daily Note ---
OT Current Status-Daily Note Subjective Eating breakfast in recliner on arrival Pain Numeric Pain Scale: 0-No Pain Mental Status/Objective Patient Orientation: Person, Place, Time, Situation ADL-Treatment Completed shower and full body dressing, standing oral care w/ FWW 10% VCs for sequncese LB tools Therapy Code Descriptions/Definitions Functional [place] Measure: 0=Not Assessed/NA 4=Minimal Assistance 1=Total Assistance 5=Supervision or Setup 2=Maximal Assistance 6=Modified [place] 3=Moderate Assistance 7=Complete IndependenceSCALE: Activities may be completed with or without assistive devices. 2-Ugnhlvbmay-vcspqkx completes the activity by him/herself with no assistance from a helper. 5-Set-up or Clean-up Assistance-helper sets up or cleans up; patient completes activity. [place] assists only prior to or following the activity. 4-Supervision or Touching Assistance-helper provides verbal cues and/or touching/steadying and/or contact guard assistance as patient completes activity. Assistance may be provided throughout the activity or intermittently. 3-Partial/Moderate Assistance-helper does LESS THAN HALF the effort. [place] lifts, holds or supports trunk or limbs, but provides less than half the effort. 2-Substantial/Maximal Assistance-helper does MORE THAN HALF the effort. [place] lifts or holds trunk or limbs and provides more than half the effort. 8-Dpjgztufm-hfujkb does ALL the effort. Patient does none of the effort to complete the activity. Or, the assistance of 2 or more helpers is required for the patient to complete the activity. If activity was not attempted, code reason: 7-Patient Refused. 9-Not Applicable-not attempted and the patient did not perform the activity before the current illness, exacerbation or injury. 10-Not Attempted due to Environmental Limitations-(lack of equipment, weather restraints, etc.). 88-Not Attempted due to Medical Conditions or Safety Concerns. Eating (QC): 7 Oral Hygiene (QC): 5 Bathing Location: L Arm, R Arm, L Upper Leg, R Upper Leg, L Lower Leg (including foot), R Lower Leg (including foot), Chest, Abdomen, Buttocks, Izabela domingo Area Shower/Bathe Self (QC): 4 Upper Body Dressing (QC): 5 Lower Body Dressing (QC): 5 On/Off Footwear: 5 Toileting Hygiene (QC): 5 Toilet Transfer (QC): 5 1 LOB in room min assistance from OT required to regain balance Education OT Patient Education: Correct positioning, Exercise program, Modified ADL techniques, Purpose of tx/functional activities, Reviewed precautions, Safety issues, Transfer techniques, Use of adapted equipment Teaching Recipient: Patient Teaching Methods: Demonstration, Discussion Response to Teaching: Verbalize Understanding, Return Demonstration, Reinforcement Needed OT Short Term Goals Short Term Goals Time Frame: Aug 27, 2022 Eatin Oral hygiene: 6 Toileting hygiene: 4 Shower/bathe self: 4 Upper body dressin Lower body dressin (with AE) Putting on/taking off footwear: 4 (with AE) OT Mcc Goals Mcc Goals Time Frame: Sep 10, 2022 Acute change in mental status: 0 Inattention: 0 Disorganized thinkin Altered level of consciousness: 0 Eating (QC): 6 Oral Hygiene (QC): 6 Toileting Hygiene (QC): 6 Shower/Bathe Self (QC): 5 Upper Body Dressing (QC): 6 Lower Body Dressing (QC): 6 On/Off Footwear (QC): 6 Additional Goals: 1-Demonstrate ADL Tasks, 2-Verbalize Understanding, 3- ImproveStrength/Thony 1=Demonstrate adherence to instructed precautions during ADL tasks. 2=Patient will verbalize/demonstrate understanding of assistive devices/modifications for ADL. 3=Patient will improve strength/tolerance for activity to enable patient to perform ADL's. OT Education/Plan Discharge Recommendations Plan/Recommendations: Continue POC Treatment Plan/Plan of Care Patient would benefit from OT for education, treatment and training to promote independence in ADL's, mobility, safety and/or upper extremity function for ADL's. Plan of Care: ADL Retraining, Functional Mobility, UE Funct Exercise/Act Treatment Duration: Sep 10, 2022 Frequency: At least 5 of 7 days/Wk (IRF) Estimated Hrs Per Day: 1.5 hours per day Agreement: Yes Rehab Potential: Good PT to DC 08/26/22 Time Start Time: 07:20 Stop Time: 08:42 DATE: Aug 25, 2022 Total Time Billed (hr/min): 82 Billed Treatment Time 1 visit ADL 3 (50m) EX 2 (32m) GAIL MONAHAN OT Aug 25, 2022 10:11
--- NOTE | 2022-08-25 11:35 | Physical Therapy Daily Note ---
PT Daily Note-Current Subjective Pt sitting in recliner upon arrival. Pt agrees to PT. No pain reported at rest but increases with WB and amb. Pain Numeric Pain Scale: 5-Moderate Pain Location: Right, Incisional Location Body Site: Hip Pain Description: Ache, Tightness Section J - Health Conditions 1. Rarely or not at all 2. Occasionally 3. Frequently 4. Almost constantly 8. Unable to answer Pain Effect on Sleep: 1 Pain Interference with Therapy: 1 Pain Interference w/Day-to-Day: 1 Mental Status Patient Orientation: Person, Place, Time, Situation Transfers SCALE: Activities may be completed with or without assistive devices. 1-Hrexahgrdy-orimopy completes the activity by him/herself with no assistance from a helper. 5-Set-up or Clean-up Assistance-helper sets up or cleans up; patient completes activity. [place] assists only prior to or following the activity. 4-Supervision or Touching Assistance-helper provides verbal cues and/or touching/steadying and/or contact guard assistance as patient completes activity. Assistance may be provided throughout the activity or intermittently. 3-Partial/Moderate Assistance-helper does LESS THAN HALF the effort. [place] lifts, holds or supports trunk or limbs, but provides less than half the effort. 2-Substantial/Maximal Assistance-helper does MORE THAN HALF the effort. [place] lifts or holds trunk or limbs and provides more than half the effort. 1-Umheeknvc-bjtyoy does ALL the effort. Patient does none of the effort to complete the activity. Or, the assistance of 2 or more helpers is required for the patient to complete the activity. If activity was not attempted, code reason: 7-Patient Refused. 9-Not Applicable-not attempted and the patient did not perform the activity before the current illness, exacerbation or injury. 10-Not Attempted due to Environmental Limitations-(lack of equipment, weather restraints, etc.). 88-Not Attempted due to Medical Conditions or Safety Concerns. Sit to Stand (QC): 5 Weight Bearing Right Lower Extremity: Right Weight Bearing/Tolerated Left Lower Extremity: Left Full Weight Bearing Gait Training Does the Patient Walk?: Yes Distance: 150' x 4 Walk 10 feet (QC): 5 Walk 50 ft with 2 Turns(QC): 4 Walk 150 ft (QC): 4 Gait Persons Needed: 1 Gait Assistive Device: FWW R hip is hiked or in Trendelenburg position while walking as well as pt's R hip will stay more lateral while walking. Wheelchair Training Does the Pt Use a Wheelchair?: No Exercises Supine Ex: Ankle pumps, Quad Set, Glut sets, Heel Slides, Short Arc Quads, Straight leg raise, Hip abd/add Supine Reps: 15 Treatments TF to standing and amb. in hallway after declining need for BR. After getting to Therapy Gym, pt needs to return to room to use BR. Pt amb. in hallway and returns to Gym. Pt completes Supine EX with RB as needed. Pt amb. in hallway and returns to room to rest in recliner. All needs met, call light in hand. Assessment Current Status: Fair Progress Pt is improving with strength and transfers although posture with amb. and re ported pain while walking is reported. Xray will be taken. PT Short Term Goals Short Term Goals Time Frame: Aug 27, 2022 Roll Left & Right: 6 Sit to lyin Lying to sitting on side of be: 6 Sit to stand: 6 Chair/gtf-ju-ndogk transfer: 6 Toilet transfer: 6 Car transfer: 6 Walk 10 feet: 6 Walk 50 feet with two turns: 6 Walk 150 feet: 6 Walking 10ft on uneven surface: 6 1 step (curb): 6 4 steps: 5 12 steps: 5 PT [facility] Goals Pressurization Mechanic Goals PT Pressurization Mechanic Goals Time Frame: Sep 03, 2022 Roll Left & Right (QC): 6 Sit to Lying (QC): 6 Lying-Sitting on Side/Bed(QC): 6 Sit to Stand (QC): 6 Chair/Rli-iz-Ciird Xfer(QC): 6 Toilet Transfer (QC): 6 Car Transfer (QC): 6 Does the Patient Walk: Yes Walk 10 feet (QC): 6 Walk 50ft with 2 Turns (QC): 6 Walk 150 ft (QC): 6 Walking 10ft on Uneven Surface: 6 1 Step (curb) (QC): 6 4 Steps (QC): 6 12 Steps (QC): 6 Picking up an Object (QC): 88 Does the Pt use WC or Scooter?: No Wheel 50 feet with 2 turns (QC: 9 Wheel 150 feet: 9 PT Plan Problem List Problem List: Activity Tolerance, Gait Treatment/Plan Treatment Plan: Continue Plan of Care Treatment Plan: Bed Mobility, Concurrent Therapy, Education, Functional Activity Thony, Functional Strength, Group Therapy, Gait, Safety, Therapeutic Exercise, Transfers Treatment Duration: Sep 03, 2022 Frequency: At least 5 of 7 days/Wk (IRF) Estimated Hrs Per Day: 1.5 hours per day Patient and/or Family Agrees t: Yes Safety Risks/Education Patient Education: Gait Training, Correct Positioning, Safety Issues Teaching Recipient: Patient Teaching Methods: Discussion Response to Teaching: Verbalize Understanding Time Time In: 900 Time Out: 1000 DATE: Aug 25, 2022 Total Billed Treatment Time: 60 Total Billed Treatment 1, GT x2 (30m), FA (15m) & EX (15m) JADEN VERDUZCO RECYCLING ASSISTANT Aug 25, 2022 11:35
--- NOTE | 2022-08-25 13:40 | Occupational Ther Daily Note ---
OT Current Status-Daily Note Subjective Pt in bed, alert. Agrees to therapy. C/o of pain in R hip. No rating. Mental Status/Objective Patient Orientation: Person, Place, Time, Situation ADL-Treatment Therapy Code Descriptions/Definitions Functional [place] Measure: 0=Not Assessed/NA 4=Minimal Assistance 1=Total Assistance 5=Supervision or Setup 2=Maximal Assistance 6=Modified [place] 3=Moderate Assistance 7=Complete IndependenceSCALE: Activities may be completed with or without assistive devices. 3-Ribvuygpcu-ugmofut completes the activity by him/herself with no assistance from a helper. 5-Set-up or Clean-up Assistance-helper sets up or cleans up; patient completes activity. [place] assists only prior to or following the activity. 4-Supervision or Touching Assistance-helper provides verbal cues and/or touching/steadying and/or contact guard assistance as patient completes activity. Assistance may be provided throughout the activity or intermittently. 3-Partial/Moderate Assistance-helper does LESS THAN HALF the effort. [place] lifts, holds or supports trunk or limbs, but provides less than half the effort. 2-Substantial/Maximal Assistance-helper does MORE THAN HALF the effort. [place] lifts or holds trunk or limbs and provides more than half the effort. 4-Ornfdgumz-jtmajc does ALL the effort. Patient does none of the effort to complete the activity. Or, the assistance of 2 or more helpers is required for the patient to complete the activity. If activity was not attempted, code reason: 7-Patient Refused. 9-Not Applicable-not attempted and the patient did not perform the activity before the current illness, exacerbation or injury. 10-Not Attempted due to Environmental Limitations-(lack of equipment, weather restraints, etc.). 88-Not Attempted due to Medical Conditions or Safety Concerns. Other Treatment Pt independent to EOB. Pt used FWW to ambulate to recliner, SBA. Pt participated in 5 different UE exercises with no weight or resistance in reps of 10 each with breaks in between to increase UE strength and endurance for self care and mobility. Skill instruction provided for proper form and technique. Pt hyperverbal throughout session, taking increased time to complete all activities. Pt in recliner at end of session. Phone/call light in reach. All needs met in room. Education OT Patient Education: Exercise program Teaching Recipient: Patient Teaching Methods: Demonstration Response to Teaching: Return Demonstration OT Short Term Goals Short Term Goals Time Frame: Aug 27, 2022 Eatin Oral hygiene: 6 Toileting hygiene: 4 Shower/bathe self: 4 Upper body dressin Lower body dressin (with AE) Putting on/taking off footwear: 4 (with AE) OT Fdc Goals Fdc Goals Time Frame: Sep 10, 2022 Acute change in mental status: 0 Inattention: 0 Disorganized thinkin Altered level of consciousness: 0 Eating (QC): 6 Oral Hygiene (QC): 6 Toileting Hygiene (QC): 6 Shower/Bathe Self (QC): 5 Upper Body Dressing (QC): 6 Lower Body Dressing (QC): 6 On/Off Footwear (QC): 6 Additional Goals: 1-Demonstrate ADL Tasks, 2-Verbalize Understanding, 3- ImproveStrength/Thony 1=Demonstrate adherence to instructed precautions during ADL tasks. 2=Patient will verbalize/demonstrate understanding of assistive devices/raj fications for ADL. 3=Patient will improve strength/tolerance for activity to enable patient to perform ADL's. OT Education/Plan Problem List/Assessment Assessment: Decreased Activ Tolerance, Decreased UE Strength, Impaired I ADL's, Impaired Self-Care Skills Discharge Recommendations Plan/Recommendations: Continue POC Treatment Plan/Plan of Care Patient would benefit from OT for education, treatment and training to promote independence in ADL's, mobility, safety and/or upper extremity function for ADL's. Plan of Care: ADL Retraining, Functional Mobility, UE Funct Exercise/Act Treatment Duration: Sep 10, 2022 Frequency: At least 5 of 7 days/Wk (IRF) Estimated Hrs Per Day: 1.5 hours per day Agreement: Yes Rehab Potential: Good Time Start Time: 13:00 Stop Time: 13:30 DATE: Aug 25, 2022 Total Time Billed (hr/min): 30 Billed Treatment Time 1 visit EX 1 (20 min) FA 1 (10 min) EARL WOLFF Aug 25, 2022 13:40
--- NOTE | 2022-08-25 14:56 | Physical Therapy Daily Note ---
PT Daily Note-Current Subjective Pt sitting in recliner upon arrival. Pt agrees to PT but reports feeling more fatigued this afternoon. Pain Location: Right, Upper Location Body Site: Thigh Pain Description: Ache Comment: Reports but doesn't rate increase w/movement Section J - Health Conditions 1. Rarely or not at all 2. Occasionally 3. Frequently 4. Almost constantly 8. Unable to answer Pain Effect on Sleep: 1 Pain Interference with Therapy: 1 Pain Interference w/Day-to-Day: 1 Mental Status Patient Orientation: Person, Place, Time, Situation Transfers SCALE: Activities may be completed with or without assistive devices. 7-Btcltelofa-eeiuhml completes the activity by him/herself with no assistance from a helper. 5-Set-up or Clean-up Assistance-helper sets up or cleans up; patient completes activity. [place] assists only prior to or following the activity. 4-Supervision or Touching Assistance-helper provides verbal cues and/or touching/steadying and/or contact guard assistance as patient completes activity. Assistance may be provided throughout the activity or intermittently. 3-Partial/Moderate Assistance-helper does LESS THAN HALF the effort. [place] lifts, holds or supports trunk or limbs, but provides less than half the effort. 2-Substantial/Maximal Assistance-helper does MORE THAN HALF the effort. [place] lifts or holds trunk or limbs and provides more than half the effort. 1-Yzwysdmir-trssyt does ALL the effort. Patient does none of the effort to complete the activity. Or, the assistance of 2 or more helpers is required for the patient to complete the activity. If activity was not attempted, code reason: 7-Patient Refused. 9-Not Applicable-not attempted and the patient did not perform the activity before the current illness, exacerbation or injury. 10-Not Attempted due to Environmental Limitations-(lack of equipment, weather restraints, etc.). 88-Not Attempted due to Medical Conditions or Safety Concerns. Weight Bearing Right Lower Extremity: Right Weight Bearing/Tolerated Left Lower Extremity: Left Full Weight Bearing Exercises Seated Therapy Exercises: Ankle pumps, Long arc quads, Hip flexion, Hip abd/add, Glut set Seated Reps: 15 Treatments Pt completes Seated EX w/RB as needed. Pt resting at end of tx. All needs met, call light in hand. Assessment Current Status: Fair Progress Pt more fatigued this afternoon. PT Short Term Goals Short Term Goals Time Frame: Aug 27, 2022 Roll Left & Right: 6 Sit to lyin Lying to sitting on side of be: 6 Sit to stand: 6 Chair/cua-my-sjppm transfer: 6 Toilet transfer: 6 Car transfer: 6 Walk 10 feet: 6 Walk 50 feet with two turns: 6 Walk 150 feet: 6 Walking 10ft on uneven surface: 6 1 step (curb): 6 4 steps: 5 12 steps: 5 PT Senior Care Goals Bad Cloth Checker Goals PT Senior Care Goals Time Frame: Sep 03, 2022 Roll Left & Right (QC): 6 Sit to Lying (QC): 6 Lying-Sitting on Side/Bed(QC): 6 Sit to Stand (QC): 6 Chair/Mhb-jm-Ymync Xfer(QC): 6 Toilet Transfer (QC): 6 Car Transfer (QC): 6 Does the Patient Walk: Yes Walk 10 feet (QC): 6 Walk 50ft with 2 Turns (QC): 6 Walk 150 ft (QC): 6 Walking 10ft on Uneven Surface: 6 1 Step (curb) (QC): 6 4 Steps (QC): 6 12 Steps (QC): 6 Picking up an Object (QC): 88 Does the Pt use WC or Scooter?: No Wheel 50 feet with 2 turns (QC: 9 Wheel 150 feet: 9 PT Plan Problem List Problem List: Activity Tolerance Treatment/Plan Treatment Plan: Continue Plan of Care Treatment Plan: Bed Mobility, Concurrent Therapy, Education, Functional Activity Thony, Functional Strength, Group Therapy, Gait, Safety, Therapeutic Exercise, Transfers Treatment Duration: Sep 03, 2022 Frequency: At least 5 of 7 days/Wk (IRF) Estimated Hrs Per Day: 1.5 hours per day Patient and/or Family Agrees t: Yes Time Time In: 1338 Time Out: 1358 DATE: Aug 25, 2022 Total Billed Treatment Time: 20 Total Billed Treatment 1, EX (20m) JADEN VERDUZCO A[place] STUDIES PROFESSOR Aug 25, 2022 14:56
--- NOTE | 2022-08-25 14:58 | Diagnostic Imaging Report ---
INDICATION: Uneven leg lengths, right hip arthroplasty COMPARISON: None available. TECHNIQUE: 5 radiographs of the pelvis and bilateral hips dated 08/25/2022 FINDINGS: Right hip arthroplasty is in place with skin ashley overlying the right hip. No evidence of hardware complication. Moderate degenerative changes within the partially visualized lower lumbar spine. The sacroiliac joints and pubic symphysis are intact. Multiple phleboliths within the lower pelvis. No acute fracture or dislocation. Mild degenerative changes of the left hip with mild joint space narrowing. The left femoral head maintains normal shape and contour. IMPRESSION: Right hip arthroplasty without hardware complication or acute osseous abnormality. Moderate degenerative changes in the partially visualized lower lumbar spine with mild degenerative changes within the left hip. Dictated by: Dictated on workstation # [id number]
[2022-08-25 20:15] VITALS: BP 106/64
[2022-08-25] MEDS: MELATONIN 3 MG TABLET PO PRN (21:16)
[2022-08-25] MEDS: LATANOPROST 0.005% (XALATAN) OPHTH SOLN 2.5 ML OU SCH (21:35)
--- NOTE | 2022-08-26 06:23 | PM&R Progress Note ---
Subjective HPI/CC On Admission Date Seen by Provider: Aug 26, 2022 Time Seen by Provider: 09:00 Subjective/Events-last exam 08/26/2022: Pt is doing a lot better Coccyx is improved Initiated enema and now he has had bowel evacuation X-ray reveals good alignment 08/25/2022: Pt is doing really well Discharge planned for later in week Pelvic x-ray will be done today Overall doing well 08/24/2022: Pt is doing really well White count is 13.6 Hemoglobin is 10 Pain is controlled No falls 08/23/2022: Patient doing much better Pain is controlled Bowels are moving Blood pressure improved with lisinopril on hold 08/22/2022: Patient doing much better Wants to go home soon Participating in therapy Blood Pressure was fairly low so holding lisinopril Patient is lost 40 pounds last year 08/21/2022: Doing very well Pain controlled BM+ No nausea Working with PT OT 08/20/2022: Doing well No pain currently Moving around well BM+ No falls DC Prednisone since I reviewed [facility] chart and it was for piriformis syndrome and that was before hip fracture was dx Review of Systems General: Fatigue, Malaise Musculoskeletal: leg pain Objective Exam Vital Signs Vital Signs Date Time Temp Pulse Resp B/P (MAP) Pulse Ox O2 Delivery O2 Flow Rate FiO2 08/26/22 20:35 37.4 100 18 98/65 (76) 93 Room Air Capillary Refill : General Appearance: No Apparent Distress, WD/WN, Thin HEENT: PERRL/EOMI, Normal ENT Inspection, Pharynx Normal Neck: Full Range of Motion, Normal Inspection, Non Tender, Supple, Carotid Bruit Respiratory: Chest Non Tender, Lungs Clear, Normal Breath Sounds, No Accessory Muscle Use, No Respiratory Distress Cardiovascular: Regular Rate, Rhythm, No Edema, No Gallop, No JVD, No Murmur, Normal Peripheral Pulses Gastrointestinal: Normal Bowel Sounds, No Organomegaly, No Pulsatile Mass, Non Tender, Soft Back: Normal Inspection, No CVA Tenderness, No Vertebral Tenderness Extremity: Normal Capillary Refill, Normal Inspection, Normal Range of Motion (except right leg), Non Tender, No Calf Tenderness, No Pedal Edema Neurologic/Psychiatric: Alert, Oriented x3, Normal Mood/Affect, pattern marker II-XII Norm as Tested, Abnormal Gait, Motor Weakness (right leg) Skin: Normal Color, Warm/Dry Lymphatic: No Adenopathy Results/Procedures Lab Patient resulted labs reviewed. FIM Transfers Therapy Code Descriptions/Definitions Functional [place] Measure: 0=Not Assessed/NA 4=Minimal Assistance 1=Total Assistance 5=Supervision or Setup 2=Maximal Assistance 6=Modified [place] 3=Moderate Assistance 7=Complete IndependenceSCALE: Activities may be completed with or without assistive devices. 8-Rpqjffxafv-kmzrnrt completes the activity by him/herself with no assistance from a helper. 5-Set-up or Clean-up Assistance-helper sets up or cleans up; patient completes activity. [place] assists only prior to or following the activity. 4-Supervision or Touching Assistance-helper provides verbal cues and/or touching/steadying and/or contact guard assistance as patient completes activity. Assistance may be provided throughout the activity or intermittently. 3-Partial/Moderate Assistance-helper does LESS THAN HALF the effort. [place] lifts, holds or supports trunk or limbs, but provides less than half the effort. 2-Substantial/Maximal Assistance-helper does MORE THAN HALF the effort. [place] lifts or holds trunk or limbs and provides more than half the effort. 0-Sveiinbrn-kufjnq does ALL the effort. Patient does none of the effort to complete the activity. Or, the assistance of 2 or more helpers is required for the patient to complete the activity. If activity was not attempted, code reason: 7-Patient Refused. 9-Not Applicable-not attempted and the patient did not perform the activity before the current illness, exacerbation or injury. 10-Not Attempted due to Environmental Limitations-(lack of equipment, weather restraints, etc.). 88-Not Attempted due to Medical Conditions or Safety Concerns. Roll Left to Right (QC): 5 Sit to Lying (QC): 5 Sit to Stand (QC): 5 Chair/Har-oc-Wytci Xfer(QC): 4 Car Transfer (QC): 88 Gait Training Does the Patient Walk?: Yes Distance: 150' x 4 Walk 10 feet (QC): 5 Walk 50 ft with 2 Turns(QC): 4 Walk 150 ft (QC): 4 Walking 10ft/uneven surface-QC: 88 Gait Persons Needed: 1 Gait Assistive Device: FWW Wheelchair Training Does the Pt Use a Wheelchair?: No Wheel 50 ft with 2 turns (QC): 9 Wheel 150 ft (QC): 9 Stair Training #of Steps: 12 1 Step (curb) (QC): 4 4 Steps (QC): 4 12 Steps (QC): 4 Stairs: Pattern: Step to Balance Picking up an Object (QC): 88 ADL-Treatment Eating (QC): 7 Oral Hygiene (QC): 5 Bathing Location: L Arm, R Arm, L Upper Leg, R Upper Leg, L Lower Leg (including foot), R Lower Leg (including foot), Chest, Abdomen, Buttocks, Perineal Area Shower/Bathe Self (QC): 4 Upper Body Dressing (QC): 5 Lower Body Dressing (QC): 5 On/Off Footwear (QC): 5 Toileting Hygiene (QC): 5 Toilet Transfer (QC): 5 Assessment/Plan Assessment and Plan Assess & Plan/Chief Complaint Assessment: Right hip fracture from mechanical fall s/p repair 08/17/22 Apraxia Acoustic neuroma Falls HTN HLP BMI 22 Post op acute blood loss anemia Elevated LFT's Hypotension due to weight loss on antihypertensives Plan: Pain control BM regimen Home meds Aggressive rehab 08/20/2022: Supportive care Hold statin 08/21/2022: Improved status 08/22/2022: Hold lisinopril 08/23/2022: Supportive care 08/24/2022: Supportive care Monitor closely Check xray tomorrow 08/25/2022: Xray reveals good alignment 08/26/2022: Improved status Xray good (1) Hip fracture (2) Acoustic neuroma (3) Hypertension (4) Hyperlipidemia (5) Glaucoma (6) Diverticulosis (7) Apraxia (8) Falls AMRIT ROQUE DO Aug 26, 2022 06:23
[2022-08-26] MEDS: MULTIVIT W/MINERALS TAB (THERAGRAN M) PO SCH (06:58)
[2022-08-26 07:16] VITALS: BP 110/72
[2022-08-26] MEDS: SENNA W/DOCUSATE (SENOKOT S) TABLET PO SCH ×2 (08:14→20:33)
[2022-08-26] MEDS: ENOXAPARIN 40 MG/0.4 ML (LOVENOX) SYR SC SCH (08:14)
[2022-08-26] MEDS: DOCUSATE SODIUM 100 MG (COLACE) CAP PO SCH ×2 (08:14→20:33)
[2022-08-26] MEDS: polyethylene glycoL POWDER 17 GM (MIRALAX) PACK PO SCH ×2 (08:15→20:33)
--- NOTE | 2022-08-26 08:20 | Occupational Ther Daily Note ---
OT Current Status-Daily Note Subjective Pt denies pain, requests a shower. Appearance Pt returned to sitting in recliner, all needs within reach, RN in room at OT departure. Mental Status/Objective Patient Orientation: Person, Place, Situation ADL-Treatment Therapy Code Descriptions/Definitions Functional [place] Measure: 0=Not Assessed/NA 4=Minimal Assistance 1=Total Assistance 5=Supervision or Setup 2=Maximal Assistance 6=Modified [place] 3=Moderate Assistance 7=Complete IndependenceSCALE: Activities may be completed with or without assistive devices. 7-Poeredgwnc-wrwbawa completes the activity by him/herself with no assistance from a helper. 5-Set-up or Clean-up Assistance-helper sets up or cleans up; patient completes activity. [place] assists only prior to or following the activity. 4-Supervision or Touching Assistance-helper provides verbal cues and/or touching/steadying and/or contact guard assistance as patient completes activity. Assistance may be provided throughout the activity or intermittently. 3-Partial/Moderate Assistance-helper does LESS THAN HALF the effort. [place] lifts, holds or supports trunk or limbs, but provides less than half the effort. 2-Substantial/Maximal Assistance-helper does MORE THAN HALF the effort. [place] lifts or holds trunk or limbs and provides more than half the effort. 1-Xdiblmewa-ckyxyc does ALL the effort. Patient does none of the effort to complete the activity. Or, the assistance of 2 or more helpers is required for the patient to complete the activity. If activity was not attempted, code reason: 7-Patient Refused. 9-Not Applicable-not attempted and the patient did not perform the activity before the current illness, exacerbation or injury. 10-Not Attempted due to Environmental Limitations-(lack of equipment, weather restraints, etc.). 88-Not Attempted due to Medical Conditions or Safety Concerns. Eating (QC): 6 Oral Hygiene (QC): 6 Shower/Bathe Self (QC): 5 Upper Body Dressing (QC): 5 Lower Body Dressing (QC): 4 On/Off Footwear: 6 Toileting Hygiene (QC): 4 Toilet Transfer (QC): 4 Pt requesting shower at OT arrival. Hip dressing covered prior to activity; C/D/I post task. Pt sat for 90% of task, standing only briefly to wash buttocks. No unsteadiness when utilizing grab bar. G surgical scrub utilized for rash on back. Good recall on adaptive equipment for LB dressing/bathing. Intermittent CGA for safety when standing to manage clothing up over hips. Extra time to don socks with use of sock aid secondary to reduced coordination/dexterity but no physical assistance or cues required. Pt continues to show increased unsteadiness when making turns with walker, thus needing CGA. Cues for improved walker management and to turn slower. Other Treatment 2nd treatment ([id number]): Pt participated in several therapeutic activities with focus on improving core strength, endurance, strength, sitting balance, and coordination needed for functional tasks. Pt passed ball around back, neck and under LLE (hip hike) x10 each. Cues on improved balance support including having feet supported on floor and activating core muscles. Intermittent CGA required, more when fatigue incre ases. Very poor coordination observed when passing ball back and forth from one hand to another. Slight improvement noted once back/trunk support was provided. Education OT Patient Education: Correct positioning, Energy conservation, Progress toward Goal/Update tx plan, Purpose of tx/functional activities, Safety issues Teaching Recipient: Patient Teaching Methods: Discussion Response to Teaching: Verbalize Understanding, Return Demonstration, Reinforcement Needed OT Short Term Goals Short Term Goals Time Frame: Aug 27, 2022 Eatin Oral hygiene: 6 Toileting hygiene: 4 Shower/bathe self: 4 Upper body dressin Lower body dressin (with AE) Putting on/taking off footwear: 4 (with AE) OT Carpenter Supervisor [employer] Goals Residential Goals Time Frame: Sep 10, 2022 Acute change in mental status: 0 Inattention: 0 Disorganized thinkin Altered level of consciousness: 0 Eating (QC): 6 Oral Hygiene (QC): 6 Toileting Hygiene (QC): 6 Shower/Bathe Self (QC): 5 Upper Body Dressing (QC): 6 Lower Body Dressing (QC): 6 On/Off Footwear (QC): 6 Additional Goals: 1-Demonstrate ADL Tasks, 2-Verbalize Understanding, 3- ImproveStrength/Thony 1=Demonstrate adherence to instructed precautions during ADL tasks. 2=Patient will verbalize/demonstrate understanding of assistive devices/modifications for ADL. 3=Patient will improve strength/tolerance for activity to enable patient to perform ADL's. OT Education/Plan Problem List/Assessment Assessment: Decreased Activ Tolerance, Decreased Safety Aware, Decreased UE Strength, Edema, Impaired Coordination, Impaired Funct Balance, Impaired I ADL's, Impaired Self-Care Skills Discharge Recommendations Plan/Recommendations: Continue POC Therapy Discharge Recommendati: Post Acute OT Equpiment Recommendations-D/C: Tank Truck Engine Mechanic, Bedside Commode, Hip Kit, Sock Aide Treatment Plan/Plan of Care Treatment,Training & Education: Yes Patient would benefit from OT for education, treatment and training to promote independence in ADL's, mobility, safety and/or upper extremity function for ADL's. Plan of Care: ADL Retraining, Functional Mobility, UE Funct Exercise/Act Treatment Duration: Sep 10, 2022 Frequency: At least 5 of 7 days/Wk (IRF) Estimated Hrs Per Day: 1.5 hours per day Agreement: Yes Rehab Potential: Good Time Start Time: 07:20 (1000) Stop Time: 08:20 (1030) DATE: Aug 26, 2022 Total Time Billed (hr/min): 90 Billed Treatment Time 1 visit ADL x4 (60 min) 2nd visit FAx2 (30 min) Agueda Donaldson OT Aug 26, 2022 08:20
--- NOTE | 2022-08-26 12:06 | Physical Therapy Daily Note ---
PT Daily Note-Current Subjective Pt sitting in recliner upon arrival. Pt agrees to PT. Pt reports having issue w/constipation but enema given and aided w/BM. Pain Location: No Pain Reported Section J - Health Conditions 1. Rarely or not at all 2. Occasionally 3. Frequently 4. Almost constantly 8. Unable to answer Pain Effect on Sleep: 1 Pain Interference with Therapy: 1 Pain Interference w/Day-to-Day: 1 Mental Status Patient Orientation: Person, Place, Time, Situation Transfers SCALE: Activities may be completed with or without assistive devices. 6-Auudiqnbhy-ltdnows completes the activity by him/herself with no assistance from a helper. 5-Set-up or Clean-up Assistance-helper sets up or cleans up; patient completes activity. [place] assists only prior to or following the activity. 4-Supervision or Touching Assistance-helper provides verbal cues and/or touching/steadying and/or contact guard assistance as patient completes activity. Assistance may be provided throughout the activity or intermittently. 3-Partial/Moderate Assistance-helper does LESS THAN HALF the effort. [place] lifts, holds or supports trunk or limbs, but provides less than half the effort. 2-Substantial/Maximal Assistance-helper does MORE THAN HALF the effort. [place] lifts or holds trunk or limbs and provides more than half the effort. 1-Maxcdhpyh-uffiwt does ALL the effort. Patient does none of the effort to complete the activity. Or, the assistance of 2 or more helpers is required for the patient to complete the activity. If activity was not attempted, code reason: 7-Patient Refused. 9-Not Applicable-not attempted and the patient did not perform the activity before the current illness, exacerbation or injury. 10-Not Attempted due to Environmental Limitations-(lack of equipment, weather restraints, etc.). 88-Not Attempted due to Medical Conditions or Safety Concerns. Sit to Stand (QC): 4 Toilet Transfer (QC): 4 Weight Bearing Right Lower Extremity: Right Weight Bearing/Tolerated Left Lower Extremity: Left Full Weight Bearing Gait Training Does the Patient Walk?: Yes Distance: 250' x2, 175', 150' Walk 10 feet (QC): 5 Walk 50 ft with 2 Turns(QC): 4 Walk 150 ft (QC): 4 Gait Persons Needed: 1 Gait Assistive Device: FWW Occasional needed for CGA for turns and TF as pt can be off balance at times. Wheelchair Training Does the Pt Use a Wheelchair?: No Treatments TF to standing and amb. in hallway with several RB as needed for fatigue. Pt returns to room to use BR at end of tx. Pt TF back to recliner to rest with all needs met, call light in hand. Assessment Current Status: Good Progress Pt is improving with strength and activity tolerance, decrease in pain as well. Pt demonstrates occasional need for CGA as pt is unsteady at times w/turns and TF from seated surface. PT Short Term Goals Short Term Goals Time Frame: Aug 27, 2022 Roll Left & Right: 6 Sit to lyin Lying to sitting on side of be: 6 Sit to stand: 6 Chair/ivh-ef-kngvq transfer: 6 Toilet transfer: 6 Car transfer: 6 Walk 10 feet: 6 Walk 50 feet with two turns: 6 Walk 150 feet: 6 Walking 10ft on uneven surface: 6 1 step (curb): 6 4 steps: 5 12 steps: 5 PT Fdc Goals Carton Maker Goals PT Fdc Goals Time Frame: Sep 03, 2022 Roll Left & Right (QC): 6 Sit to Lying (QC): 6 Lying-Sitting on Side/Bed(QC): 6 Sit to Stand (QC): 6 Chair/Ddo-wu-Vkboq Xfer(QC): 6 Toilet Transfer (QC): 6 Car Transfer (QC): 6 Does the Patient Walk: Yes Walk 10 feet (QC): 6 Walk 50ft with 2 Turns (QC): 6 Walk 150 ft (QC): 6 Walking 10ft on Uneven Surface: 6 1 Step (curb) (QC): 6 4 Steps (QC): 6 12 Steps (QC): 6 Picking up an Object (QC): 88 Does the Pt use WC or Scooter?: No Wheel 50 feet with 2 turns (QC: 9 Wheel 150 feet: 9 PT Plan Problem List Problem List: Activity Tolerance, Balance Treatment/Plan Treatment Plan: Continue Plan of Care Treatment Plan: Bed Mobility, Concurrent Therapy, Education, Functional Activity Thony, Functional Strength, Group Therapy, Gait, Safety, Therapeutic Exercise, Transfers Treatment Duration: Sep 03, 2022 Frequency: At least 5 of 7 days/Wk (IRF) Estimated Hrs Per Day: 1.5 hours per day Patient and/or Family Agrees t: Yes Safety Risks/Education Patient Education: Transfer Techniques, Correct Positioning, Safety Issues Teaching Recipient: Patient Teaching Methods: Discussion Response to Teaching: Verbalize Understanding Time Time In: 1045 Time Out: 1200 DATE: Aug 26, 2022 Total Billed Treatment Time: 75 Total Billed Treatment 1, FA (20m) & GT x4 (55m) JADEN VERDUZCO DAIRY NUTRITION SPECIALIST Aug 26, 2022 12:06
--- NOTE | 2022-08-26 13:42 | Physical Therapy Daily Note ---
PT Daily Note-Current Subjective * Pt found seated in chair upon entry. Agreed to PT. Reports he is a little fatigued from earlier PT Tx. Does not rate pain and does not report any change in pain level. Pain Numeric Pain Scale: 0-No Pain Section J - Health Conditions 1. Rarely or not at all 2. Occasionally 3. Frequently 4. Almost constantly 8. Unable to answer Pain Effect on Sleep: 1 Pain Interference with Therapy: 1 Pain Interference w/Day-to-Day: 1 Mental Status Patient Orientation: Person, Time, Situation Transfers SCALE: Activities may be completed with or without assistive devices. 8-Glqfaqfgmj-sjmoygm completes the activity by him/herself with no assistance from a helper. 5-Set-up or Clean-up Assistance-helper sets up or cleans up; patient completes activity. [place] assists only prior to or following the activity. 4-Supervision or Touching Assistance-helper provides verbal cues and/or touching/steadying and/or contact guard assistance as patient completes activity. Assistance may be provided throughout the activity or intermittently. 3-Partial/Moderate Assistance-helper does LESS THAN HALF the effort. [place] lifts, holds or supports trunk or limbs, but provides less than half the effort. 2-Substantial/Maximal Assistance-helper does MORE THAN HALF the effort. [place] lifts or holds trunk or limbs and provides more than half the effort. 6-Pihukbwrl-xogpim does ALL the effort. Patient does none of the effort to complete the activity. Or, the assistance of 2 or more helpers is required for the patient to complete the activity. If activity was not attempted, code reason: 7-Patient Refused. 9-Not Applicable-not attempted and the patient did not perform the activity before the current illness, exacerbation or injury. 10-Not Attempted due to Environmental Limitations-(lack of equipment, weather restraints, etc.). 88-Not Attempted due to Medical Conditions or Safety Concerns. Sit to Stand (QC): 4 Pt is SBA /c sit<->stand trfs. Weight Bearing Right Lower Extremity: Right Weight Bearing/Tolerated Left Lower Extremity: Left Full Weight Bearing Gait Training Does the Patient Walk?: Yes Distance: 150, 150 Walk 10 feet (QC): 4 Walk 50 ft with 2 Turns(QC): 4 Walk 150 ft (QC): 4 Gait Assistive Device: FWW Pt is SBA /c gait training. Amb. 300ft total. Wheelchair Training Does the Pt Use a Wheelchair?: No Exercises Standing: Hamstring curls, 3 way Ex=Flex, Abd, Ext Standing Reps: 15 Pt completed all standing exercises /c no report of increased pain. Demonstrates signs of fatigue at end of set. Assessment Current Status: Good Progress Pt demonstrates signs of fatigue during this visit. Pt is able to self correct gait and body mechanics on occasion. Continue to progress pt as tolerated increase functional ability and endurance. PT Short Term Goals Short Term Goals Time Frame: Aug 27, 2022 Roll Left & Right: 6 Sit to lyin Lying to sitting on side of be: 6 Sit to stand: 6 Chair/pnd-fo-woort transfer: 6 Toilet transfer: 6 Car transfer: 6 Walk 10 feet: 6 Walk 50 feet with two turns: 6 Walk 150 feet: 6 Walking 10ft on uneven surface: 6 1 step (curb): 6 4 steps: 5 12 steps: 5 PT Care Home Goals Physical Therapy Professor Goals PT Physical Therapy Professor Goals Time Frame: Sep 03, 2022 Roll Left & Right (QC): 6 Sit to Lying (QC): 6 Lying-Sitting on Side/Bed(QC): 6 Sit to Stand (QC): 6 Chair/Vrp-ja-Blckb Xfer(QC): 6 Toilet Transfer (QC): 6 Car Transfer (QC): 6 Does the Patient Walk: Yes Walk 10 feet (QC): 6 Walk 50ft with 2 Turns (QC): 6 Walk 150 ft (QC): 6 Walking 10ft on Uneven Surface: 6 1 Step (curb) (QC): 6 4 Steps (QC): 6 12 Steps (QC): 6 Picking up an Object (QC): 88 Does the Pt use WC or Scooter?: No Wheel 50 feet with 2 turns (QC: 9 Wheel 150 feet: 9 PT Plan Treatment/Plan Treatment Plan: Continue Plan of Care Treatment Plan: Bed Mobility, Concurrent Therapy, Education, Functional Activity Thony, Functional Strength, Group Therapy, Gait, Safety, Therapeutic Exercise, Transfers Treatment Duration: Sep 03, 2022 Frequency: At least 5 of 7 days/Wk (IRF) Estimated Hrs Per Day: 1.5 hours per day Patient and/or Family Agrees t: Yes Time Time In: 1300 Time Out: 1320 DATE: Aug 26, 2022 Total Billed Treatment Time: 20 Total Billed Treatment 1 visit EX 1x HEDY MAGAÑA PTA Aug 26, 2022 13:42
[2022-08-26] MEDS: LATANOPROST 0.005% (XALATAN) OPHTH SOLN 2.5 ML OU SCH (20:27)
[2022-08-26] MEDS: MELATONIN 3 MG TABLET PO PRN (20:27)
[2022-08-26 20:35] VITALS: BP 98/65
--- NOTE | 2022-08-27 06:02 | PM&R Progress Note ---
Subjective HPI/CC On Admission Date Seen by Provider: Aug 27, 2022 Time Seen by Provider: 12:30 Subjective/Events-last exam 08/27/2022: Patient doing a lot better Ready for discharge tomorrow Having some angst about discharge but trying to reassure 08/26/2022: Pt is doing a lot better Coccyx is improved Initiated enema and now he has had bowel evacuation X-ray reveals good alignment 08/25/2022: Pt is doing really well Discharge planned for later in week Pelvic x-ray will be done today Overall doing well 08/24/2022: Pt is doing really well White count is 13.6 Hemoglobin is 10 Pain is controlled No falls 08/23/2022: Patient doing much better Pain is controlled Bowels are moving Blood pressure improved with lisinopril on hold 08/22/2022: Patient doing much better Wants to go home soon Participating in therapy Blood Pressure was fairly low so holding lisinopril Patient is lost 40 pounds last year 08/21/2022: Doing very well Pain controlled BM+ No nausea Working with PT OT 08/20/2022: Doing well No pain currently Moving around well BM+ No falls DC Prednisone since I reviewed [facility] chart and it was for piriformis syndrome and that was before hip fracture was dx Review of Systems General: Fatigue, Malaise Musculoskeletal: leg pain Objective Exam Vital Signs Vital Signs Date Time Temp Pulse Resp B/P (MAP) Pulse Ox O2 Delivery O2 Flow Rate FiO2 08/27/22 20:45 37.5 98 18 96/58 (71) 94 Room Air Capillary Refill : General Appearance: No Apparent Distress, WD/WN, Thin HEENT: PERRL/EOMI, Normal ENT Inspection, Pharynx Normal Neck: Full Range of Motion, Normal Inspection, Non Tender, Supple, Carotid Bruit Respiratory: Chest Non Tender, Lungs Clear, Normal Breath Sounds, No Accessory Muscle Use, No Respiratory Distress Cardiovascular: Regular Rate, Rhythm, No Edema, No Gallop, No JVD, No Murmur, Normal Peripheral Pulses Gastrointestinal: Normal Bowel Sounds, No Organomegaly, No Pulsatile Mass, Non Tender, Soft Back: Normal Inspection, No CVA Tenderness, No Vertebral Tenderness Extremity: Normal Capillary Refill, Normal Inspection, Normal Range of Motion (except right leg), Non Tender, No Calf Tenderness, No Pedal Edema Neurologic/Psychiatric: Alert, Oriented x3, Normal Mood/Affect, mirror installer II-XII Norm as Tested, Abnormal Gait, Motor Weakness (right leg) Skin: Normal Color, Warm/Dry Lymphatic: No Adenopathy Results/Procedures Lab Patient resulted labs reviewed. FIM Transfers Therapy Code Descriptions/Definitions Functional [place] Measure: 0=Not Assessed/NA 4=Minimal Assistance 1=Total Assistance 5=Supervision or Setup 2=Maximal Assistance 6=Modified [place] 3=Moderate Assistance 7=Complete IndependenceSCALE: Activities may be completed with or without assistive devices. 2-Mmlodatnmp-lqsznzd completes the activity by him/herself with no assistance from a helper. 5-Set-up or Clean-up Assistance-helper sets up or cleans up; patient completes activity. [place] assists only prior to or following the activity. 4-Supervision or Touching Assistance-helper provides verbal cues and/or touching/steadying and/or contact guard assistance as patient completes activity. Assistance may be provided throughout the activity or intermittently. 3-Partial/Moderate Assistance-helper does LESS THAN HALF the effort. [place] lifts, holds or supports trunk or limbs, but provides less than half the effort. 2-Substantial/Maximal Assistance-helper does MORE THAN HALF the effort. [place] lifts or holds trunk or limbs and provides more than half the effort. 5-Icwmmpeeh-zhfylk does ALL the effort. Patient does none of the effort to complete the activity. Or, the assistance of 2 or more helpers is required for the patient to complete the activity. If activity was not attempted, code reason: 7-Patient Refused. 9-Not Applicable-not attempted and the patient did not perform the activity before the current illness, exacerbation or injury. 10-Not Attempted due to Environmental Limitations-(lack of equipment, weather restraints, etc.). 88-Not Attempted due to Medical Conditions or Safety Concerns. Roll Left to Right (QC): 5 Sit to Lying (QC): 5 Sit to Stand (QC): 4 Chair/Trz-mu-Pdbql Xfer(QC): 4 Car Transfer (QC): 88 Gait Training Does the Patient Walk?: Yes Distance: 150, 150 Walk 10 feet (QC): 4 Walk 50 ft with 2 Turns(QC): 4 Walk 150 ft (QC): 4 Walking 10ft/uneven surface-QC: 88 Gait Persons Needed: 1 Gait Assistive Device: FWW Wheelchair Training Does the Pt Use a Wheelchair?: No Wheel 50 ft with 2 turns (QC): 9 Wheel 150 ft (QC): 9 Stair Training #of Steps: 12 1 Step (curb) (QC): 4 4 Steps (QC): 4 12 Steps (QC): 4 Stairs: Pattern: Step to Balance Picking up an Object (QC): 88 ADL-Treatment Eating (QC): 6 Oral Hygiene (QC): 6 Bathing Location: L Arm, R Arm, L Upper Leg, R Upper Leg, L Lower Leg (including foot), R Lower Leg (including foot), Chest, Abdomen, Buttocks, Perineal Area Shower/Bathe Self (QC): 5 Upper Body Dressing (QC): 5 Lower Body Dressing (QC): 4 On/Off Footwear (QC): 6 Toileting Hygiene (QC): 4 Toilet Transfer (QC): 4 Assessment/Plan Assessment and Plan Assess & Plan/Chief Complaint Assessment: Right hip fracture from mechanical fall s/p repair 08/17/22 Apraxia Acoustic neuroma Falls HTN HLP BMI 22 Post op acute blood loss anemia Elevated LFT's Hypotension due to weight loss on antihypertensives Plan: Pain control BM regimen Home meds Aggressive rehab 08/20/2022: Supportive care Hold statin 08/21/2022: Improved status 08/22/2022: Hold lisinopril 08/23/2022: Supportive care 08/24/2022: Supportive care Monitor closely Check xray tomorrow 08/25/2022: Xray reveals good alignment 08/26/2022: Improved status Xray good 08/27/2022: Discharge home tomorrow (1) Hip fracture (2) Acoustic neuroma (3) Hypertension (4) Hyperlipidemia (5) Glaucoma (6) Diverticulosis (7) Apraxia (8) Falls AMRIT ROQUE DO Aug 27, 2022 06:02
[2022-08-27] MEDS: MULTIVIT W/MINERALS TAB (THERAGRAN M) PO SCH (06:38)
[2022-08-27 07:42] VITALS: BP 112/66
[2022-08-27] MEDS: polyethylene glycoL POWDER 17 GM (MIRALAX) PACK PO SCH ×2 (08:05→19:35)
[2022-08-27] MEDS: ENOXAPARIN 40 MG/0.4 ML (LOVENOX) SYR SC SCH (08:05)
[2022-08-27] MEDS: DOCUSATE SODIUM 100 MG (COLACE) CAP PO SCH ×2 (08:05→19:35)
[2022-08-27] MEDS: SENNA W/DOCUSATE (SENOKOT S) TABLET PO SCH ×2 (08:05→19:35)
--- NOTE | 2022-08-27 08:45 | Occupational Ther Daily Note ---
OT Current Status-Daily Note Subjective Pt reports fatigue after having several loose stools last night. Appearance Pt returned to sitting in recliner, all needs within reach at OT departure. Mental Status/Objective Patient Orientation: Person, Place, Situation ADL-Treatment Therapy Code Descriptions/Definitions Functional Potter Measure: 0=Not Assessed/NA 4=Minimal Assistance 1=Total Assistance 5=Supervision or Setup 2=Maximal Assistance 6=Modified Potter 3=Moderate Assistance 7=Complete IndependenceSCALE: Activities may be completed with or without assistive devices. 5-Ryvtrokfqj-dtajhgo completes the activity by him/herself with no assistance from a helper. 5-Set-up or Clean-up Assistance-helper sets up or cleans up; patient completes activity. Barton assists only prior to or following the activity. 4-Supervision or Touching Assistance-helper provides verbal cues and/or touching/steadying and/or contact guard assistance as patient completes activity. Assistance may be provided throughout the activity or intermittently. 3-Partial/Moderate Assistance-helper does LESS THAN HALF the effort. Barton lifts, holds or supports trunk or limbs, but provides less than half the effort. 2-Substantial/Maximal Assistance-helper does MORE THAN HALF the effort. Barton lifts or holds trunk or limbs and provides more than half the effort. 8-Oxrynpjhv-tvfgwf does ALL the effort. Patient does none of the effort to complete the activity. Or, the assistance of 2 or more helpers is required for the patient to complete the activity. If activity was not attempted, code reason: 7-Patient Refused. 9-Not Applicable-not attempted and the patient did not perform the activity before the current illness, exacerbation or injury. 10-Not Attempted due to Environmental Limitations-(lack of equipment, weather restraints, etc.). 88-Not Attempted due to Medical Conditions or Safety Concerns. Eating (QC): 6 Oral Hygiene (QC): 6 Shower/Bathe Self (QC): 5 Upper Body Dressing (QC): 6 Lower Body Dressing (QC): 4 (supervision) On/Off Footwear: 6 Toileting Hygiene (QC): 4 (SBA) Toilet Transfer (QC): 6 Pt requesting shower at OT arrival. Hip dressing covered prior to activity; C/D/I post task. Pt sat for 90% of task, standing only briefly to wash buttocks. No unsteadiness when utilizing grab bar. CHG surgical scrub utilized for rash on back. Good recall on adaptive equipment for LB dressing/bathing. Close super vision for safety when standing to manage clothing up over hips. Extra time to don socks with use of sock aid secondary to reduced coordination/dexterity but no physical assistance or cues required. Slight improvement in walker management and slowing pace when ambulating/turning. Other Treatment OT issued and instructed pt on UE exercises with red theraband. Post initial cues on technique, pt able to demonstrate good follow through. He does require min-mod cues for breathing techniques as he will often hold his breath. 1x10 all planes. Poor recall of exercises learned in past sessions. Education OT Patient Education: Correct positioning, Energy conservation, Exercise program, Modified ADL techniques, Progress toward Goal/Update tx plan, Purpose of tx/functional activities, Rehab process, Safety issues, Transfer techniques Teaching Recipient: Patient Teaching Methods: Demonstration, Discussion Response to Teaching: Verbalize Understanding, Return Demonstration, Reinforcement Needed BIMS CAM BIMS Expression of Ideas and Wants: Without Difficulty Understanding Verbal Content: Understands Brief Interview/Mental Status: Yes IRF KULDIP BIMS: IRF KULDIP BIMS Response (Comments) Value Repitition of Three Words Three 3 Recalls Socks Yes, No Cue Required 2 Recalls Blue Yes, No Cue Required 2 Recalls Bed Yes, No Cue Required 2 Year Correct 3 Month Accurate Within 5 Days 2 Day Correct 1 Total 15 Notes: CAM Mental Status Change/Baseline: 0 Inattention: 0 Disorganized thinkin Altered level of consciousness: 0 OT Short Term Goals Short Term Goals Time Frame: Aug 27, 2022 Eatin Oral hygiene: 6 Toileting hygiene: 4 Shower/bathe self: 4 Upper body dressin Lower body dressin (with AE) Putting on/taking off footwear: 4 (with AE) OT Waterworks Operator Goals Mcc Goals Time Frame: Sep 10, 2022 Acute change in mental status: 0 Inattention: 0 Disorganized thinkin Altered level of consciousness: 0 Eating (QC): 6 Oral Hygiene (QC): 6 Toileting Hygiene (QC): 6 Shower/Bathe Self (QC): 5 Upper Body Dressing (QC): 6 Lower Body Dressing (QC): 6 On/Off Footwear (QC): 6 Additional Goals: 1-Demonstrate ADL Tasks, 2-Verbalize Understanding, 3- ImproveStrength/Thony 1=Demonstrate adherence to instructed precautions during ADL tasks. 2=Patient will verbalize/demonstrate understanding of assistive devices/modifications for ADL. 3=Patient will improve strength/tolerance for activity to enable patient to perform ADL's. OT Education/Plan Problem List/Assessment Assessment: Decreased Activ Tolerance, Decreased Safety Aware, Impaired Coordination, Impaired Funct Balance, Impaired I ADL's, Impaired Self-Care Skills Discharge Recommendations Plan/Recommendations: Continue POC Therapy Discharge Recommendati: Homemaker Support, Post Acute OT (Home health OT) Treatment Plan/Plan of Care Treatment,Training & Education: Yes Patient would benefit from OT for education, treatment and training to promote i ndependence in ADL's, mobility, safety and/or upper extremity function for ADL's. Plan of Care: ADL Retraining, Functional Mobility, UE Funct Exercise/Act Treatment Duration: Sep 10, 2022 Frequency: At least 5 of 7 days/Wk (IRF) Estimated Hrs Per Day: 1.5 hours per day Agreement: Yes Rehab Potential: Good Time Start Time: 07:15 Stop Time: 08:45 DATE: Aug 27, 2022 Total Time Billed (hr/min): 90 Billed Treatment Time 1 visit ADL x4 (60 min) EX x2 (30 min) Agueda Donaldson OT Aug 27, 2022 08:45
--- NOTE | 2022-08-27 11:02 | Physical Therapy Daily Note ---
PT Daily Note-Current Subjective Pt found seated upon entry. Agreed to PT. States that he had to get up a few times last night to use the bathroom and is a little tired this morning. Does not rate or report any change in pain. Pain Numeric Pain Scale: 0-No Pain Section J - Health Conditions 1. Rarely or not at all 2. Occasionally 3. Frequently 4. Almost constantly 8. Unable to answer Pain Effect on Sleep: 1 Pain Interference with Therapy: 1 Pain Interference w/Day-to-Day: 1 Mental Status Patient Orientation: Person, Time, Situation Transfers SCALE: Activities may be completed with or without assistive devices. 5-Mdflzhmlbr-uefkdto completes the activity by him/herself with no assistance from a helper. 5-Set-up or Clean-up Assistance-helper sets up or cleans up; patient completes activity. Chauvin assists only prior to or following the activity. 4-Supervision or Touching Assistance-helper provides verbal cues and/or teodora giovanny/steadying and/or contact guard assistance as patient completes activity. Assistance may be provided throughout the activity or intermittently. 3-Partial/Moderate Assistance-helper does LESS THAN HALF the effort. Chauvin lifts, holds or supports trunk or limbs, but provides less than half the effort. 2-Substantial/Maximal Assistance-helper does MORE THAN HALF the effort. Chauvin lifts or holds trunk or limbs and provides more than half the effort. 7-Hpcveqheh-qxlozt does ALL the effort. Patient does none of the effort to complete the activity. Or, the assistance of 2 or more helpers is required for the patient to complete the activity. If activity was not attempted, code reason: 7-Patient Refused. 9-Not Applicable-not attempted and the patient did not perform the activity before the current illness, exacerbation or injury. 10-Not Attempted due to Environmental Limitations-(lack of equipment, weather restraints, etc.). 88-Not Attempted due to Medical Conditions or Safety Concerns. Roll Left & Right (QC): 6 Sit to Lying (QC): 6 Lying to Sitting/Side of Bed(Q: 6 Sit to Stand (QC): 6 Chair/Pmq-hq-Sphty Xfer(QC): 6 Toilet Transfer (QC): 6 Car Transfer (QC): 6 Pt is independent /c all trfs. Weight Bearing Right Lower Extremity: Right Weight Bearing/Tolerated Left Lower Extremity: Left Full Weight Bearing Gait Training Does the Patient Walk?: Yes Distance: 50, 100, 300 Walk 10 feet (QC): 5 Walk 50 ft with 2 Turns(QC): 5 Walk 150 ft (QC): 5 Walking 10ft/uneven surface-QC: 5 Gait Persons Needed: 1 Gait Assistive Device: FWW Pt SBA /c gait training. 450ft of total amb. Wheelchair Training Does the Pt Use a Wheelchair?: No Stair Training Stair Training: Handrails/: 2 handrails #of Steps: 12 1 Step (curb) (QC): 6 4 Steps (QC): 6 12 Steps (QC): 6 Stairs: Pattern: Step to Pt is independent /c stair training. Balance Picking up an Object (QC): 6 Special Test Comments Pt independent /c picking up objects. Exercises Supine Ex: Quad Set, Glut sets, Short Arc Quads, Straight leg raise Seated Therapy Exercises: Ankle pumps, Long arc quads, Hip flexion, Hip abd/add Pt tolerated strength training well /c no report in increased pain. Assessment Current Status: Good Progress Pt continues to demonstrate strength gains and improved gait. Continue to progress pt as tolerated to improve gait, LE strength, and balance. PT Short Term Goals Short Term Goals Time Frame: Aug 27, 2022 Roll Left & Right: 6 Sit to lyin Lying to sitting on side of be: 6 Sit to stand: 6 Chair/kcu-eh-dgzcj transfer: 6 Toilet transfer: 6 Car transfer: 6 Walk 10 feet: 6 Walk 50 feet with two turns: 6 Walk 150 feet: 6 Walking 10ft on uneven surface: 6 1 step (curb): 6 4 steps: 5 12 steps: 5 PT Retirement Goals Retirement Goals PT Fundraising Sale Representative Goals Time Frame: Sep 03, 2022 Roll Left & Right (QC): 6 Sit to Lying (QC): 6 Lying-Sitting on Side/Bed(QC): 6 Sit to Stand (QC): 6 Chair/Pti-fq-Ypjqm Xfer(QC): 6 Toilet Transfer (QC): 6 Car Transfer (QC): 6 Does the Patient Walk: Yes Walk 10 feet (QC): 6 Walk 50ft with 2 Turns (QC): 6 Walk 150 ft (QC): 6 Walking 10ft on Uneven Surface: 6 1 Step (curb) (QC): 6 4 Steps (QC): 6 12 Steps (QC): 6 Picking up an Object (QC): 88 Does the Pt use WC or Scooter?: No Wheel 50 feet with 2 turns (QC: 9 Wheel 150 feet: 9 PT Plan Treatment/Plan Treatment Plan: Continue Plan of Care Treatment Plan: Bed Mobility, Concurrent Therapy, Education, Functional Activity Thony, Functional Strength, Group Therapy, Gait, Safety, Therapeutic Exercise, Transfers Treatment Duration: Sep 03, 2022 Frequency: At least 5 of 7 days/Wk (IRF) Estimated Hrs Per Day: 1.5 hours per day Patient and/or Family Agrees t: Yes Time Time In: 0900 Time Out: 1030 DATE: Aug 27, 2022 Total Billed Treatment Time: 90 Total Billed Treatment 1 visit FA 2x GT 2x EX 2x HEDY MAGAÑA PTA Aug 27, 2022 11:01
[2022-08-27] MEDS: MICONAZOLE 2% POWDER (DESENEX AF) 90 GM TOP SCH ×2 (12:24→20:27)
--- NOTE | 2022-08-27 16:33 | Progress Note ---
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 He lives in [place]. He sustained a fall 4 weeks ago at home but only mild pain occurred but gradually worsened so he went to ER twice and xray did not show fracture but it worsened so much he went to PCP and xray at his office revealed the fracture so he was sent to ER and he was admitted and underwent repair on 08/17/22 uncomplicated. PLOF independent. When I encountered the patient he was lively and had just finished walking around the Rehab floor assisted by staff, he expressed having had a significant reduction in his pain saying "he feels little to no pain". His main concerns now are not being able to fall asleep and his apraxia gives him anxiety to be alone in his home. O: V/S: T: 36.8 HR:94 RR: 28 BP: 112/66 SpO2: 96 RA Exam: General Appearance: No Apparent Distress, WD/WN, Thin Neck: Full Range of Motion, Normal Inspection, Non Tender Respiratory: Chest Non Tender, Lungs Clear, Normal Breath Sounds, No Accessory Muscle Use, No Respiratory Distress Cardiovascular: Regular Rate, Rhythm, No Edema, No Gallop, No JVD, No Murmur, Normal Peripheral Pulses Gastrointestinal: Normal Bowel Sounds Extremity: Normal Capillary Refill, Normal Inspection, Normal Range of Motion (except right leg), Non Tender, No Calf Tenderness, No Pedal Edema Neurologic/Psychiatric: Alert, Oriented x3, Normal Mood/Affect, chair springer all intact apart from CN 8 on right ear, Abnormal Gait, Motor Weakness (right leg) Skin: Normal Color, Warm/Dry Lymphatic: No Adenopathy A: Right hip fracture from mechanical fall s/p repair 08/17/22 Apraxia Acoustic neuroma Falls HTN HLP P: Increase Melatonin dosage Pain control BM regimen Home meds Aggressive rehab KESHA ROQUE DO 08/28/22 6524: Supervisory-Addendum Brief Verification & Attestation Participated in pt care: history, MDM, physical Personally performed: exam, history, MDM, supervision of care Care discussed with: Medical Student Procedures: n/a Results interpretation: Verified all documentation Verification and Attestation of Medical Student E/M Service A medical student performed and documented this service in my presence. I reviewed and verified all information documented by the medical student and made modifications to such information, when appropriate. I personally performed the physical exam and medical decision making. Kesha Roque, Aug 28, 2022,04:52 ODETTE ROYAL Aug 27, 2022 16:33 KESHA ROQUE DO Aug 28, 2022 04:52
[2022-08-27] MEDS: LATANOPROST 0.005% (XALATAN) OPHTH SOLN 2.5 ML OU SCH (20:28)
[2022-08-27 20:45] VITALS: BP 96/58
[2022-08-27] MEDS ORDERED: MELATONIN 3 MG TABLET PO SCH (21:00)
[2022-08-27] MEDS ORDERED: MELATONIN 10 MG TABLET PO SCH (21:00)
[2022-08-28] MEDS ORDERED: ACHYD1T PO (06:01)
[2022-08-28] MEDS ORDERED: MELA10TA2 PO (06:01)
[2022-08-28] MEDS ORDERED: ASPI-1238 PO (06:01)
[2022-08-28] MEDS ORDERED: MICO90PO TOP (06:01)
--- NOTE | 2022-08-28 06:03 | Discharge Summary ---
Diagnosis/Chief Complaint Date of Admission Aug 19, 2022 at 16:41 Date of Discharge Discharge Date: Aug 28, 2022 Discharge Diagnosis Assessment: Right hip fracture from mechanical fall s/p repair 08/17/22 Apraxia Acoustic neuroma Falls HTN HLP BMI 22 Post op acute blood loss anemia Elevated LFT's Hypotension due to weight loss on antihypertensives Plan: Pain control BM regimen Home meds Aggressive rehab 08/20/2022: Supportive care Hold statin 08/21/2022: Improved status 08/22/2022: Hold lisinopril 08/23/2022: Supportive care 08/24/2022: Supportive care Monitor closely Check xray tomorrow 08/25/2022: Xray reveals good alignment 08/26/2022: Improved status Xray good 08/27/2022: Discharge home tomorrow (1) Hip fracture (2) Acoustic neuroma (3) Hypertension (4) Hyperlipidemia (5) Glaucoma (6) Diverticulosis (7) Apraxia (8) Falls Discharge Summary Discharge Physical Examination Allergies: Coded Allergies: No Known Drug Allergies (Unverified , 08/20/22) Vitals & I&Os Vital Signs Date Time Temp Pulse Resp B/P (MAP) Pulse Ox O2 Delivery O2 Flow Rate FiO2 08/28/22 11:00 36.7 102 18 110/74 94 Room Air General Appearance: Alert, Oriented X3, Cooperative Respiratory: Clear to Auscultation Cardiovascular: Regular Rate Neuro: Normal Gait, Normal Speech, Strength at 5/5 X4 Ext Psych/Mental Status: Mental Status NL Hospital Course Was the Problem List Reviewed?: Yes Pt had an uneventful hospital course after 10 days after hip fracture. Came from [facility] after repair. He was deemed stable. He participated in all therapy. Pain was controlled. Bowel function returned back to normal. He was discharged in improved condition. Labs (last 24 hrs) Laboratory Tests 08/20/22 05:52: White Blood Count 12.5H, Red Blood Count 3.43L, Hemoglobin 10.1L, Hematocrit 31L , Mean Corpuscular Volume 89, Mean Corpuscular Hemoglobin 29, Mean Corpuscular Hemoglobin Concent 33, Red Cell Distribution Width 12.5, Platelet Count 476H, Mean Platelet Volume 9.9, Immature Granulocyte % (Auto) 1, Neutrophils (%) (Auto) 72, Lymphocytes (%) (Auto) 15, Monocytes (%) (Auto) 9, Eosinophils (%) (Auto) 3, Basophils (%) (Auto) 1, Neutrophils # (Auto) 9.0H, Lymphocytes # (Auto) 1.9, Monocytes # (Auto) 1.1H, Eosinophils # (Auto) 0.4H, Basophils # (Auto) 0.1, Immature Granulocyte # (Auto) 0.1, Sodium Level 136, Potassium Level 3.9, Chloride Level 102, Carbon Dioxide Level 26, Anion Gap 8, Blood Urea Nitrogen 20H, Creatinine 0.74, Estimat Glomerular Filtration Rate 99, BUN/Creatinine Ratio 27, Glucose Level 101, Calcium Level 9.0, Corrected Calcium 10.0, Iron Level 37, Total Bilirubin 0.3, Aspartate Amino Transf (AST/SGOT) 61H, Alanine Aminotransferase (ALT/SGPT) 63H, Alkaline Phosphatase 74, Total Protein 5.5L, Albumin 2.7L, Vitamin B12 Level [facility] 08/24/22 06:41: White Blood Count 13.6H, Red Blood Count 3.46L, Hemoglobin 10.2L, Hematocrit 31L , Mean Corpuscular Volume 89, Mean Corpuscular Hemoglobin 30, Mean Corpuscular Hemoglobin Concent 33, Red Cell Distribution Width 12.6, Platelet Count 541H, Mean Platelet Volume 9.5, Immature Granulocyte % (Auto) 1, Neutrophils (%) (Auto) 78H, Lymphocytes (%) (Auto) 12, Monocytes (%) (Auto) 7, Eosinophils (%) (Auto) 3, Basophils (%) (Auto) 0, Neutrophils # (Auto) 10.6H, Lymphocytes # (Auto) 1.6, Monocytes # (Auto) 0.9, Eosinophils # (Auto) 0.4H, Basophils # (Auto) 0.1, Immature Granulocyte # (Auto) 0.1, Sodium Level 134L, Potassium Level 4.1, Chloride Level 99, Carbon Dioxide Level 26, Anion Gap 9, Blood Urea Nitrogen 17, Creatinine 0.72, Estimat Glomerular Filtration Rate 100, BUN/C reatinine Ratio 24, Glucose Level 98, Calcium Level 9.0, Corrected Calcium 10.0, Total Bilirubin 0.4, Aspartate Amino Transf (AST/SGOT) 25, Alanine Aminotransferase (ALT/SGPT) 42, Alkaline Phosphatase 88, Total Protein 5.9L, Albumin 2.8L Pending Labs Laboratory Tests 08/20/22 05:52: White Blood Count 12.5, Red Blood Count 3.43, Hemoglobin 10.1, Hematocrit 31, Mean Corpuscular Volume 89, Mean Corpuscular Hemoglobin 29, Mean Corpuscular Hemoglobin Concent 33, Red Cell Distribution Width 12.5, Platelet Count 476, Mean Platelet Volume 9.9, Immature Granulocyte % (Auto) 1, Neutrophils (%) (Auto) 72, Lymphocytes (%) (Auto) 15, Monocytes (%) (Auto) 9, Eosinophils (%) (Auto) 3, Basophils (%) (Auto) 1, Neutrophils # (Auto) 9.0, Lymphocytes # (Auto) 1.9, Monocytes # (Auto) 1.1, Eosinophils # (Auto) 0.4, Basophils # (Auto) 0.1, Immature Granulocyte # (Auto) 0.1, Sodium Level 136, Potassium Level 3.9, Chloride Level 102, Carbon Dioxide Level 26, Anion Gap 8, Blood Urea Nitrogen 20, Creatinine 0.74, Estimat Glomerular Filtration Rate 99, BUN/Creatinine Ratio 27, Glucose Level 101, Calcium Level 9.0, Corrected Calcium 10.0, Iron Level 37, Total Bilirubin 0.3, Aspartate Amino Transf (AST/SGOT) 61, Alanine Aminotransferase (ALT/SGPT) 63, Alkaline Phosphatase 74, Total Protein 5.5, Albumin 2.7, Vitamin B12 Level 418 08/24/22 06:41: White Blood Count 13.6, Red Blood Count 3.46, Hemoglobin 10.2, Hematocrit 31, Mean Corpuscular Volume 89, Mean Corpuscular Hemoglobin 30, Mean Corpuscular Hemoglobin Concent 33, Red Cell Distribution Width 12.6, Platelet Count 541, Mean Platelet Volume 9.5, Immature Granulocyte % (Auto) 1, Neutrophils (%) (Auto) 78, Lymphocytes (%) (Auto) 12, Monocytes (%) (Auto) 7, Eosinophils (%) (Auto) 3, Basophils (%) (Auto) 0, Neutrophils # (Auto) 10.6, Lymphocytes # (Auto) 1.6, Monocytes # (Auto) 0.9, Eosinophils # (Auto) 0.4, Basophils # (Auto) 0.1, Immature Granulocyte # (Auto) 0.1, Sodium Level 134, Potassium Level 4.1, Chloride Level 99, Carbon Dioxide Level 26, Anion Gap 9, Blood Urea Nitrogen 17, Creatinine 0.72, Estimat Glomerular Filtration Rate 100, BUN/Creatinine Ratio 24, Glucose Level 98, Calcium Level 9.0, Corrected Calcium 10.0, Total Bilirubin 0.4, Aspartate Amino Transf (AST/SGOT) 25, Alanine Aminotransferase (ALT/SGPT) 42, Alkaline Phosphatase 88, Total Protein 5.9, Albumin 2.8 Discharge Home Medications: Active Scripts Active Aspirin EC (Aspirin) 81 Mg Tablet.dr 81 Mg PO BID Melatonin 10 Mg Tablet 10 Mg PO HS Lotrimin AF (Miconazole Nitrate) 2 % Powder 0 Gm TOP BID twice daily HYDROcodone/APAP 10/325 TABLET (Acetaminophen/Hydrocodone Bitart) 1 Ea Tab 1-2 Ea PO Q8H PRN Reported Diclofenac Sodium 1 % Gel..gram. 2 Gm TP Q6H PRN APPLY TO AFFECTED AREA Multivitamin 1 Each Tablet 1 Each PO DAILY Pravastatin Sodium 20 Mg Tablet 20 Mg PO HS Latanoprost 0.005% Eye Drop (Latanoprost/Pf) 0.005 % Drops 1 Drop OU HS Instructions to patient/family Please see electronic discharge instructions given to patient. Diagnosis/Problems Diagnosis/Problems (1) Hip fracture (2) Acoustic neuroma (3) Hypertension (4) Hyperlipidemia (5) Glaucoma (6) Diverticulosis (7) Apraxia (8) Falls AMRIT ROQUE DO Aug 28, 2022 06:03
--- NOTE | 2022-08-28 06:03 | D/C HH Face to Face Order ---
D/C HH Face to Face Orders Reconcile Patient Problems Problems Reviewed?: Yes Instructions for Patient HH Patient Instructions/FollowUp: pcp 1 week Physician to follow Patient: PCP Discharge Diet for Home: No Restrictions Patient Problems: hip fracture Patient Data-Allergies,Ht & Wt Patient Allergies: Coded Allergies: No Known Drug Allergies (Unverified , 08/20/22) Home Health Need/Face to Face Date of Face to Face: Aug 28, 2022 Clinical Findings: Generalized weakness and fatigue, Instability, Muscle weakness, Pain with ambulation, Unsteady gait I have seen Pt [id number]: Yes Discharged To: Home Diagnosis/Conditions: hip fx Patient is Homebound due to: Michael fall risk due to instabilty, Muscle weakness, Pain w/ambulation Homebound Status Due to the above stated illness, injury or surgical procedure (medical condition or diagnosis) and associated clinical findings, the patient is homebound because of his/her inability to leave home except with aid of a supportive device and/or person AND leaving the home requires a considerable and taxing effort or is medically contraindicated. Pt req the following assistanc: Walker Home Health Nursing Orders Home Health Services Order: Nursing Services, [place] Tender-Evaluate & Treat, Physical Therapy-Evaluate & Treat Certify Stmt I certify that this patient is under my care and that I, a nurse practitioner or a physician; a assistant professor of physics working with me, had a face to face encounter that -nate britany the physician face to face encounter requirements with this patient as dated. AMRIT ROQUE DO Aug 28, 2022 06:03
[2022-08-28] MEDS: MULTIVIT W/MINERALS TAB (THERAGRAN M) PO SCH (06:30)
[2022-08-28 07:42] VITALS: BP 110/74
[2022-08-28] MEDS: polyethylene glycoL POWDER 17 GM (MIRALAX) PACK PO SCH (08:29)
[2022-08-28] MEDS: DOCUSATE SODIUM 100 MG (COLACE) CAP PO SCH (08:29)
[2022-08-28] MEDS: SENNA W/DOCUSATE (SENOKOT S) TABLET PO SCH (08:29)
[2022-08-28] MEDS: ENOXAPARIN 40 MG/0.4 ML (LOVENOX) SYR SC SCH (08:36)
[2022-08-28] MEDS: MICONAZOLE 2% POWDER (DESENEX AF) 90 GM TOP SCH (08:48)
--- NOTE | 2022-08-28 09:36 | Therapy Team Discharge Summary ---
Therapy Discharge Summary Discharge Recommendations Date of Discharge Physical Therapy Patient came to rehab s/p (R) hip hemiarthroplasty. Upon evaluation patient performed rolling and supine <-> sit with setup, sit <-> stand and transfers setup, ambulated 150' with a rolling walker with setup (including 50' with at least 2 turns of 90 degrees), and went up and down 1 step using a rolling walker with setup. Patient has been performing bed mobility and transfer training, balance and endurance training, functional strengthening, stair training, gait training, and education. Patient has made fair progress and has met all of his long-term goals except for ambulation. Now, patient performs rolling and supine <-> sit with independence, sit <-> stand and transfers with independence, car transfer independent, ambulates 300' with a rolling walker with setup (including 50' with at least 2 turns of 90 degrees and 10' over an uneven surface), can go up and down 12 steps using 2 handrails with independence, and can order picker/assembler an object from the floor with independence. Patient is discharging from this facility today and will be discharged from PT at this time. Roll Left to Right (QC): 6 Sit to Lying (QC): 6 Lying to Sitting/Side of Bed(Q: 6 Sit to Stand (QC): 6 Chair/Ach-cb-Nesok Xfer(QC): 6 Toilet Transfer (QC): 6 Car Transfer (QC): 6 Does the Patient Walk: Yes Mode of Locomotion: Walk Anticipated Mode of Locomotion: Walk Walk 10 feet (QC): 5 Walk 50 ft with 2 Turns(QC): 5 Walk 150 ft (QC): 5 Walking 10ft on uneven surface: 5 Distance: 150' Gait Assistive Device: FWW Does the Pt Use a Wheelchair: No Wheel 50 ft with 2 turns (QC): 9 Wheel 150 ft (QC): 9 #of Steps: 12 1 Step (curb) (QC): 6 4 Steps (QC): 6 12 Steps (QC): 6 Walking Assistive Device: Walker Balance Sitting Static: Normal Balance Sitting Dynamic: Normal Balance-Standing Static: Fair Picking up an Object (QC): 6 Occupational Therapy Decreased Activ Tolerance, Decreased Safety Aware, Impaired Coordination, Impaired Funct Balance, Impaired I ADL's, Impaired Self-Care Skills Eating (QC): 6 Oral Hygiene (QC): 6 Shower/Bathe Self (QC): 5 Upper Body Dressing (QC): 6 Lower Body Dressing (QC): 4 (supervision) On/Off Footwear (QC): 6 Toileting Hygiene (QC): 4 (SBA) PT Machine Pecan Gatherer Goals Group Home Goals PT Group Home Goals Time Frame: Sep 03, 2022 Roll Left to Right (QC): 6 Sit to Lying (QC): 6 Lying-Sitting on Side/Bed(QC): 6 Sit to Stand (QC): 6 Chair/Bon-df-Bwtxs Xfer(QC): 6 Toilet/Commode Transfer (QC): 6 Car Transfer (QC): 6 Does the Patient Walk: Yes Walk 10 feet (QC): 6 Walk 10ft-Uneven Surface(QC): 6 Walk 50ft with 2 Turns (QC): 6 Walk 150 ft (QC): 6 Does the Pt use WC or Scooter?: No Wheel 50 feet with 2 turns (QC: 9 Wheel 150 feet: 9 1 Step (curb) (QC): 6 4 Steps (QC): 6 12 Steps (QC): 6 Picking up an Object (QC): 88 OT Machine Pecan Gatherer Goals Machine Pecan Gatherer Goals Time Frame: Sep 10, 2022 Acute change in mental status: 0 Inattention: 0 Disorganized thinkin Altered level of consciousness: 0 Eating (QC): 6 Oral Hygiene (QC): 6 Toileting Hygiene (QC): 6 Shower/Bathe Self (QC): 5 Upper Body Dressing (QC): 6 Lower Body Dressing (QC): 6 On/Off Footwear (QC): 6 Additional Goals: 1-Demonstrate ADL Tasks, 2-Verbalize Understanding, 3-ImproveStrength/Thony 1=Demonstrate adherence to instructed precautions during ADL tasks. 2=Patient will verbalize/demonstrate understanding of assistive devices/modifications for ADL. 3=Patient will improve strength/tolerance for activity to enable patient to perform ADL's. FREIDA HARPER PT Aug 28, 2022 09:36
--- NOTE | 2022-08-28 09:57 | Therapy Team Discharge Summary ---
Therapy Discharge Summary Discharge Recommendations Date of Discharge Therapy D/C Recommendations: Bath Aide, Home w/ Family Support, Occupational Therapy Home Care, Homemaker Support Physical Therapy Roll Left to Right (QC): 6 Sit to Lying (QC): 6 Lying to Sitting/Side of Bed(Q: 6 Sit to Stand (QC): 6 Chair/Wqp-wp-Qyxuu Xfer(QC): 6 Toilet Transfer (QC): 6 Car Transfer (QC): 6 Does the Patient Walk: Yes Mode of Locomotion: Walk Anticipated Mode of Locomotion: Walk Walk 10 feet (QC): 5 Walk 50 ft with 2 Turns(QC): 5 Walk 150 ft (QC): 5 Walking 10ft on uneven surface: 5 Distance: 150' Gait Assistive Device: FWW Does the Pt Use a Wheelchair: No Wheel 50 ft with 2 turns (QC): 9 Wheel 150 ft (QC): 9 #of Steps: 12 1 Step (curb) (QC): 6 4 Steps (QC): 6 12 Steps (QC): 6 Walking Assistive Device: Walker Balance Sitting Static: Normal Balance Sitting Dynamic: Normal Balance-Standing Static: Fair Picking up an Object (QC): 6 Occupational Therapy Pt arrived to [facility] s/p R hemiarthroplasty. At time of evaluation, he was dependent for footwear, max a for lower body dressing, mod a for bathing, min a for toileting, sba for oral care, set up for upper body dressing, and indep with eating. During his rehab stay, OT focused on safety, balance, endurance, strengthening, coordination, core strength, AE, adherence to hip precautions, and energy conservation strategies in order to improve performance and independence in adls and functional mobility. 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 Goals not met were due to needing supervision for safety with balance. See below for current levels of assistance. Pt will be discharging from this facility today and will be discharged from OT at this time. Decreased Activ Tolerance, Decreased Safety Aware, Impaired Coordination, Impaired Funct Balance, Impaired I ADL's, Impaired Self-Care Skills Eating (QC): 6 Oral Hygiene (QC): 6 Shower/Bathe Self (QC): 5 Upper Body Dressing (QC): 6 Lower Body Dressing (QC): 4 (supervision) On/Off Footwear (QC): 6 Toileting Hygiene (QC): 4 (SBA) PT Cigar Head Pegger Goals Halfway Goals PT Halfway Goals Time Frame: Sep 03, 2022 Roll Left to Right (QC): 6 Sit to Lying (QC): 6 Lying-Sitting on Side/Bed(QC): 6 Sit to Stand (QC): 6 Chair/Mcl-mq-Txnhr Xfer(QC): 6 Toilet/Commode Transfer (QC): 6 Car Transfer (QC): 6 Does the Patient Walk: Yes Walk 10 feet (QC): 6 Walk 10ft-Uneven Surface(QC): 6 Walk 50ft with 2 Turns (QC): 6 Walk 150 ft (QC): 6 Does the Pt use WC or Scooter?: No Wheel 50 feet with 2 turns (QC: 9 Wheel 150 feet: 9 1 Step (curb) (QC): 6 4 Steps (QC): 6 12 Steps (QC): 6 Picking up an Object (QC): 88 OT Halfway Goals Halfway Goals Time Frame: Sep 10, 2022 Acute change in mental status: 0 Inattention: 0 Disorganized thinkin Altered level of consciousness: 0 Eating (QC): 6 (met) Oral Hygiene (QC): 6 (met) Toileting Hygiene (QC): 6 (not met, supervision) Shower/Bathe Self (QC): 5 (met) Upper Body Dressing (QC): 6 (met) Lower Body Dressing (QC): 6 (not met, supervision) On/Off Footwear (QC): 6 (met) Additional Goals: 1-Demonstrate ADL Tasks, 2-Verbalize Understanding, 3- ImproveStrength/Thony 1=Demonstrate adherence to instructed precautions during ADL tasks. 2=Patient will verbalize/demonstrate understanding of assistive devices/modifications for ADL. 3=Patient will improve strength/tolerance for activity to enable patient to perform ADL's. Agudea Donaldson OT Aug 28, 2022 09:57
[2022-08-28 11:00] VITALS: BP 110/74
--- NOTE | 2022-08-28 13:37 | Progress Note ---
ODETTE ROYAL 08/28/22 1337: Progress Note Hospital Course: Rick Patterson 67 M came to ARU after having fallen at home, he visited the ED multiple times for hip pain, after which he was released and adviced to visit with his PCP. His PCP saw him and suggested another image be taken of the hip where a fracture was found. 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 This in conjunction with the fracture made it unsafe for him to be at home alone. Through his course at [facility] in the ARU he progressed/recovered well while keeping his pain managed and tolerable. His balance and ambulation was deemed satisfactory for him to return back to his home, and he was in agreement. On 08/28/22 he was discharged with his and son present to help take him back to their house. KESHA TONG DO 08/29/22 0625: Supervisory-Addendum Brief Verification & Attestation Participated in pt care: history, MDM, physical Personally performed: exam, history, MDM, supervision of care Care discussed with: Medical Student Procedures: n/a Results interpretation: Verified all documentation Verification and Attestation of Medical Student E/M Service A medical student performed and documented this service in my presence. I reviewed and verified all information documented by the medical student and made modifications to such information, when appropriate. I personally performed the physical exam and medical decision making. Kesha Tong Aug 29, 2022,06:25 ODETTE ROYAL Aug 28, 2022 13:37 KESHA TONG DO Aug 29, 2022 06:25
== END 2022-08-28 11:00 | disposition home health service (06) | DRG 559 ==
PROVIDERS: ADMIT Internal Medicine; ATTEND Internal Medicine
DX: S72.001D Fracture of unspecified part of neck of right femur, subsequent encounter for closed fracture with routine healing (principal); L89.153 Pressure ulcer of sacral region, stage 3; D62 Acute posthemorrhagic anemia; R26.89 Other abnormalities of gait and mobility; Z91.81 History of falling; K59.00 Constipation, unspecified; L08.0 Pyoderma; E78.00 Pure hypercholesterolemia, unspecified; I10 Essential (primary) hypertension; K57.90 Diverticulosis of intestine, part unspecified, without perforation or abscess without bleeding; H40.9 Unspecified glaucoma; I95.9 Hypotension, unspecified; Z86.69 Personal history of other diseases of the nervous system and sense organs
CPT/HCPCS: 36415; 73523; 80053; 82607; 83540; 85025

== ENCOUNTER → 2022-09-02 | Outpatient (CLI) | payer MEDICARE, OTHER ==
[~2022-09-02] MED LIST: ACHYD1T PO; ASPI-1238 PO; DICL100G13 TP; HYDR-3820 PO; LATA7.5D OU; LISI10TA25 PO; MELA10TA2 PO; MICO90PO TOP; MULT-1136 PO; NALO4SPR NS; PRAV20TA3 PO; PRD10T PO
== END ==
LOC: WOUNDCARE 13:47
PROVIDERS: ATTEND Family Medicine
DX: I96 Gangrene, not elsewhere classified (principal); L89.323 Pressure ulcer of left buttock, stage 3; E43 Unspecified severe protein-calorie malnutrition; R63.4 Abnormal weight loss; M62.81 Muscle weakness (generalized); L24.A0 Irritant contact dermatitis due to friction or contact with body fluids, unspecified; D46.4 Refractory anemia, unspecified; R29.6 Repeated falls
CPT/HCPCS: 11042; A6212; G0463